=== PATIENT | female | born 1945 | race Caucasian/White ===

== ENCOUNTER → 2017-05-03 | Outpatient (CLI) | payer BC ==
[~2017-05-03] MED LIST: CALC-51 PO; HYDR-3714 PO; MULTTAB58 PO; PRD/1 PO; iron PO; vitamin b12 PO; vitamin d PO
--- NOTE | 2017-05-03 14:20 | MAMMOGRAPHY REPORT ---
BILATERAL DIGITAL SCREENING MAMMOGRAM WITH CAD: 05/03/2017 CLINICAL HISTORY: Routine screening. Patient has no complaints. TECHNIQUE: Current study was also evaluated with a Computer Aided Detection (CAD) system. Bilateral CC and MLO views were obtained. COMPARISON: Comparison is made to exams dated: 05/01/2016 mammogram, 04/28/2015 mammogram, 04/23/2014 [place] m[place], 04/22/2013 mammogram, 04/19/2012 mammogram, and 04/21/2011 mammogram - [facility] BREAST COMPOSITION: The tissue of both breasts is almost entirely fatty. FINDINGS: No suspicious masses, calcifications, or areas of architectural distortion are noted in ei ther breast. There has been no significant interval change compared to prior exams. IMPRESSION: ACR BI-RADS CATEGORY 1: NEGATIVE There is no mammographic evidence of malignancy. A 1 year screening mammogram is recommended. The pa tient will receive written notification of the results. Approximately 10% of breast cancers are not detected with mammography. A negative mammographic report should not delay biopsy if a clinically suggestive mass is present. Shasta Storey M.D. /:05/03/2017 09:13:41 Relay Operator: Molly PHILIPR, M, [facility] letter sent: Normal 1/2 BI-RADS Code: ACR BI-RADS Category 1: Negative
== END | disposition home or self-care (01) ==
LOC: C.MAMM 08:26
PROVIDERS: ATTEND Family Medicine
DX: Z12.31 Encounter for screening mammogram for malignant neoplasm of breast (principal)

== ENCOUNTER → 2017-08-24 | Outpatient (CLI) | payer BC ==
--- NOTE | 2017-08-24 10:28 | DIAGNOSTIC IMAGING REPORT ---
CHEST 2 VIEWS ROUTINE CLINICAL HISTORY: 72 years-old Female presenting with COUGH. TECHNIQUE: PA and lateral views of the chest were obtained. COMPARISON: Chest CT from 09/11/2008. FINDINGS: Cardiac silhouette mildly enlarged. Basilar predominant reticular opacities. No pleural effusion or pneumothorax. Osseous structures normal. Surgical clips noted in the epigastrium. IMPRESSION: 1. Reticular opacities with a basilar predominance raises concern for chronic lung disease/fibrosis. No other focal infiltrate. Electronically signed by: Tyshawn Olivia M.D. 08/24/2017 10:26 AM Dictated Date/Time: 08/24/2017 10:25 AM
== END | disposition home or self-care (01) ==
LOC: C.RAD1850 10:12
PROVIDERS: ATTEND Nurse Practitioner Family
DX: R05 Cough (principal); R91.8 Other nonspecific abnormal finding of lung field

== ENCOUNTER → 2017-10-22 | Outpatient (CLI) | payer BC ==
--- NOTE | 2017-10-22 08:47 | DIAGNOSTIC IMAGING REPORT ---
(CHEST) THORAX WITHOUT CT DOSE: 517.81 mGycm CLINICAL HISTORY: 72 years-old Female with R05 Chronic cough. TECHNIQUE: Multiaxial CT images of the chest were performed without contrast. A dose lowering technique was utilized adhering to the principles of ALARA. COMPARISON: Chest radiograph 08/24/2017, CT chest 09/11/2008 FINDINGS: Thyroid is homogeneous. Mildly enlarged adenopathy is noted about the mediastinum and bilateral terence. 10 mm pretracheal lymph node is seen on image 75 series 4. Left hilar lymph node measures 1.0 cm. Lower right hilar lymph node measures 1.1 cm in short axis. Heart demonstrates mild to moderate multichamber cardiac enlargement. No pericardial effusion. Minimal coronary arterial disease. Mild atherosclerosis of the thoracic aorta without aneurysm. There is no pneumothorax, pleural effusion or focal airspace consolidation. Multifocal multilobar distribution of subpleural predominant reticular and groundglass opacities. Mild traction bronchiectasis of the lung bases with mild subpleural cystic changes of the inferior segment lingula lateral basal segment right lower lobe. 6 mm subpleural area of nodularity at the left lung apex is unchanged compatible with area of scarring. No suspicious pulmonary nodules or masses. The central airways appear patent. Overall pattern of disease has progressed from comparison CT. Cholelithiasis without CT evidence of acute cholecystitis. Moderate sized hiatal hernia with partially intrathoracic stomach. Fluid is noted within the mid and distal esophagus. Postsurgical changes of the stomach are noted. Soft tissues are unremarkable. Bones appear to be intact. Multilevel discogenic degenerative changes and facet arthrosis. Bones appear mildly demineralized. IMPRESSION: 1. Multifocal multilobar distribution of subpleural predominant reticular and groundglass opacities with mild traction bronchiectasis and subpleural cystic changes of the lung bases has progressively worsened from 09/11/2008. Pattern of disease suggests NSIP which could be confirmed with lung biopsy. 2. No pleural effusion or focal airspace consolidation to suggest pneumonia. 3. Mild nonspecific mediastinal and bilateral hilar adenopathy as above. 4. Cardiomegaly. 5. Moderate sized hiatal hernia. 6. Cholelithiasis. Electronically signed by: Say Krishna M.D. 10/22/2017 8:46 AM Dictated Date/Time: 10/22/2017 8:36 AM
[2017-10-22 09:30] LABS: BASO % 0.7 %; BASO ABS # 0.06 K/uL (0-0.2); EOS % 8.4 %; EOS ABS # 0.74 K/uL (0-0.5); HEMOGLOBIN 13.1 g/dL (12.0-16.0); IG# 0.01 K/uL (0.00-0.02); LYMPH % 25.7 %; LYMPH ABS # 2.27 K/uL (1.2-3.4); MEAN CELL VOLUME 92.6 fL (80-100); MEAN CORPUSCULAR HEMOGLOBIN 31.1 pg (25-34); MEAN CORPUSCULAR HGB CONC 33.6 g/dl (32-36); MEAN PLATELET VOLUME 9.7 fL (7.4-10.4); MONO % 6.3 %; MONO ABS # 0.56 K/uL (0.11-0.59); NEUT % 58.8 %; NEUT ABS # 5.19 K/uL (1.4-6.5); PLATELET COUNT 269 K/uL (130-400); RED CELL DISTRIBUTION WIDTH CV 14.5 % (11.5-14.5); RED CELL DISTRIBUTION WIDTH SD 49.3 fL (36.4-46.3); WHITE BLOOD COUNT 8.83 K/uL (4.8-10.8)
[2017-10-22 09:49] LABS: ALBUMIN 3.3 gm/dl (3.4-5.0); ALT/SGPT 29 U/L (12-78); AST/SGOT 24 U/L (15-37); BLOOD UREA NITROGEN 7 mg/dl (7-18); CALCIUM 8.7 mg/dl (8.5-10.1); CARBON DIOXIDE 28 mmol/L (21-32); CREATININE 0.69 mg/dl (0.60-1.20); GLUCOSE 97 mg/dl (70-99); POTASSIUM 3.8 mmol/L (3.5-5.1); SODIUM 139 mmol/L (136-145)
[2017-10-22 09:52] LABS: ALKALINE PHOSPHATASE 99 U/L (45-117); TOTAL PROTEIN 6.8 gm/dl (6.4-8.2)
== END | disposition home or self-care (01) ==
LOC: C.CTS 08:04
PROVIDERS: ATTEND Internal Medicine Critical Care Medicine
DX: R05 Cough (principal); R59.0 Localized enlarged lymph nodes; I51.7 Cardiomegaly; K44.9 Diaphragmatic hernia without obstruction or gangrene; K80.20 Calculus of gallbladder without cholecystitis without obstruction; J47.9 Bronchiectasis, uncomplicated

== ENCOUNTER → 2017-11-01 | Day surgery (SDC) | payer BC ==
--- NOTE | 2017-10-31 20:51 | History and Physical ---
History & Physical Date of Service Oct 31, 2017. History & Physical 72-year-old female here for bronchoscopic evaluation of abnormal CXR and chronic cough: The patient has a PmHx: Significant for hypertension, chronic rhinitis with nasal polyps and history LISA-inhibitor induced cough recently switched to metoprolol. She notes that she continues to have a dry cough which has been present for least the last 4-5 years but has been improved after being switched from her LISA-inhibitor. She also notes along this time a chronic history of rhinitis and has undergone endoscopic sinus surgery with polypectomy on 2013. We reviewed her previous CT scan images from 09/11/2008 that just shows some interstitial changes in the right lower lobe as well as the lingula. Most recent CXR performed on 08/24/2007 did raise concern for diffuse interstitial changes more progressive than in the past. At this time the patient denies: Fever, chills, productive cough, pleurisy, unintentional weight loss, rigors, night sweats or classic cardiac chest pain. CXR 08/24/2017: Reticular opacities with basilar predominance raises concern for possible fibrosis CT thorax 09/11/2008: No evidence of pathologic adenopathy 6 mm noncalcified nodule left lung apex Interstitial thickening within the lingula/both lung bases PmHx: 1. Tubular adenoma 2. Hypertension 3. Skin lesion 4. Postmenopausal 5. Degenerative joint disease 6. Chronic sinusitis 7. History nasal polyps 8. History of gastric bypass 9. History of obesity 10. Appendicitis 11. PsHx: 1. Gastric bypass 2008 2. Endoscopic sinus surgery/polyp removal 10/03/2013 3. Prolapse uterine repair 4. Appendectomy 5. Tonsillectomy Medications 1. Metoprolol XL 25 mg daily 2. Ferrous sulfate 325 mg daily 3. Prevacid 4. Vitamin B12 5. Vitamin D3 6. Calcium citrate 7. 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 Chronic sinusitis (J32.9) 2. DJD (degenerative joint disease) (M19.90) 3. Nasal polyps (J33.9) 4. Skin lesion (L98.9) 5. Weight disorder (R63.8) Past Medical History 1. History of Mild HTN (I10) 2. History of Post-menopausal (Z78.0) 3. History of Tubular adenoma (D36.9) Surgical History 1. History of gastric bypass surgery Social History Never smoker Current Meds 1. Calcium Citrate 1040 MG Oral Tablet; TAKE 1 TABLET DAILY; 2. Ferrous Sulfate 325 (65 Fe) MG Oral Tablet; TAKE 1 TABLET TWICE DAILY; 3. Multi Vitamin Daily Oral Tablet; TAKE 1 TABLET DAILY; 4. Prevacid 15 MG Oral Capsule Delayed Release; TAKE 1 CAPSULE EVERY 12 HOURS; 5. RaNITidine HCl - 150 MG Oral Tablet; TAKE 1 TABLET DAILY; 6. Toprol XL 25 MG Oral Tablet Extended Release 24 Hour; TAKE 1 TABLET ONCE DAILY; 7. Vitamin B12 100 MCG Oral Tablet; TAKE 1 TABLET DAILY DIRECTED; 8. Vitamin D3 1000 UNIT Oral Capsule; TAKE 1 CAPSULE Daily; Allergies 1. LISA Inhibitors 2. Amoxicillin TABS Vital Signs Blood Pressure: 128 / 82, RUE, Sitting O2 Saturation: 93, RA Height: 5 ft 6 in Weight: 229 lb 4 oz BMI Calculated: 37 BSA Calculated: 2.12 Heart Rate: 85 Respiration: 17 Temperature: 98.2 F General appearance: Abnormal. Obese female but no apparent distress. Eyes Conjunctiva and lids: No swelling, erythema or discharge. Pupils and irises: Equal, round and reactive to light. Ears, Nose, Mouth, and Throat External inspection of ears and nose: Normal. Otoscopic examination: Abnormal. Bilateral nasal erythema right greater than left. Oropharynx: Abnormal. Posterior oral pharyngeal erythema with cobblestoning. Pulmonary Respiratory effort: No increased work of breathing or signs of respiratory distress. Auscultation of lungs: Abnormal. Inspiratory Velcro rales bilaterally at the bases. Cardiovascular Palpation of heart: Normal PMI, no thrills. Auscultation of heart: Normal rate and rhythm, normal S1 and S2, without murmurs. Examination of extremities for edema and/or varicosities: Abnormal. Mild edema in the dependent regions lower extremities. Abdomen Abdomen: Non-tender, no masses. Liver and spleen: No hepatomegaly or splenomegaly. Lymphatic Palpation of lymph nodes in neck: No lymphadenopathy. Musculoskeletal Gait and station: Normal. Digits and nails: Normal without clubbing or cyanosis. Inspection/palpation of joints, bones, and muscles: Normal. Skin Skin and subcutaneous tissue: Normal without rashes or lesions. Neurologic Cranial nerves: Cranial nerves 2-12 intact. Reflexes: 2+ and symmetric. Sensation: No sensory loss. Psychiatric Orientation to person, place, and time: Normal. Mood and affect: Normal.
[~2017-11-01] VITALS: Ht 167.6 cm; Wt 100.0 kg
[2017-11-01] VITALS (7 sets, daily range): BP systolic 125–172; BP diastolic 58–87; PULSE 54–69; TEMP 36.4–36.9; O2SAT 94–97; Ht 167.6 cm; Wt 100.0 kg
[~2017-11-01] MED LIST changes: +CHOL1000 PO; +CYAN500T13 PO; +DEXTROSE 5% 1000ML 1,000 ML IV SCH; +FENTANYL CITRATE INJ 50 MCG/1 ML 2 ML VIAL IV ONE; +FERR325T5 PO; +FLUT0.15 INTNAS; +LANS15CA6 PO; +LIDOCAINE 4% INH SOLN 4 ML BTL TOP ONE; +LIDOCAINE HCL 2% LOCAL 50ML VIAL INSTIL ONE; +LIDOCAINE VISCOUS 2% 100ML TOP ONE; +METO25TA4 PO; +MIDAZOLAM HCL 5 MG/ML 1 ML VIAL IV ONE; +NURSING VERBAL MED ORDER ONE; +RANI150T85 PO
--- NOTE | 2017-11-01 08:40 | History & Physical Bridge Note ---
H&P Re-Evaluation Bridge Note: I have examined the patient, reviewed the History & Physical and in the interval since the performance of the History & Physical I have noted the following changes of clinical significance: No changes noted
--- NOTE | 2017-11-01 08:42 | Pre Sedation Assessment ---
Pre Sedation Assessment General Date of Sedation: Nov 01, 2017. Vital Signs Past 12 Hours Date Time Temp Pulse Resp B/P (MAP) Pulse Ox O2 Delivery O2 Flow Rate FiO2 11/01/17 08:09 36.7 66 20 172/76 (108) 95 Room Air Review Cardiovascular: regular rate, rhythm, no edema, no gallop, no JVD, no murmur, normal peripheral pulses Lungs: + pertinent finding Pre-Sedation Airway Assessment Smoking Status: Never Smoker Hx of Sleep Apnea: Yes Hx of difficult intubation: No Short Thick Neck: No Thyro-mental Distance: > 3 Finger Breadths Oral Cavity: WNL Mallampati Classification: Class II ASA Classification: Class II NPO Status Date of Last Intake of Fluids: Nov 01, 2017 Time of Last Intake of Fluids: 0600 Date of Last Intake of Solids: Oct 31, 2017 Time of Last Intake of Solids: 2029 Procedure Planning Contraindications for Sedation: None Current Medications Reviewed: Yes Notes The planned sedation has been discussed with the patient. Informed Consent was obtained. I have identified the patient, determined the appropriateness of sedation and have assessed the patient immediately prior to the procedure. All medicine(s) and interventions are by my order.
--- NOTE | 2017-11-01 11:01 | Discharge Instructions ---
Discharge Instructions Date of Service Nov 01, 2017. Admission Reason for Admission: Chronic Cough Discharge Discharge Diagnosis / Problem: Chronic Cough and ILD changes Discharge Goals Goal(s): Diagnostic testing Activity Recommendations Activity Limitations: resume your previous activity Driving or Machine Use: resume 1 day after discharge . Instructions / Follow-Up Instructions / Follow-Up Pulmonary Clinic Current Hospital Diet Patient's current hospital diet: Discharge Diet Recommended Diet: Regular Diet Procedures Procedures Performed: Bronchosocpy, Consious sedation Bronchial Lavage Pending Studies Studies pending at discharge: no Medical Emergencies . Who to Call and When: Medical Emergencies: If at any time you feel your situation is an emergency, please call 911 immediately. . Non-Emergent Contact Non-Emergency issues call your: [employer] Call Non-Emergent contact if: temperature is above 101 . . "Provider Documentation" section prepared by Prashant Black. .
--- NOTE | 2017-11-01 11:05 | Bronchoscopy Procedure Note ---
Bronchoscopy Procedure Note Procedure: Bronchoscopy, conscious sedation, bronchial Lavage Consent: Obtained through the patient placed into the chart Pre-procedural diagnosis: Chronic Cough with ILD Changes on CT Post-procedural diagnosis: Chronic Cough with ILD Changes on CT and Tracheal ring calcification Start time: 102 End time: 1055 Total time: 28 minutes Analgesia: 2% liquid lidocaine: Via nebulizer 4% gel lidocaine: Via right naris 2% liquid lidocaine: Via bronchoscopy Sedation: Versed IV: 150mg Fentanyl IV: 6g Procedure: The Olympus video bronchoscope was used for this procedure and passed down through the right naris Right naris/posterior naris/posterior oropharynx: Anatomically within normal limits, diffuse erythema and mild nasal bleeding, nasal polyps Glottis: Anatomically within normal limits Vocal cords: Proper abduction and abduction, anatomically within normal limits Subglottis: Anatomically within normal limits Trachea/Ana Cristina: Tracheal Ring Calcifications diffusely Right bronchial tree: Right mainstem bronchus: bronchial ring Calcifications diffusely Right upper lobe: Anatomically within normal limits Bronchus intermedius: Anatomically within normal limits Right middle lobe: Anatomically within normal limits Right lower lobe: Anatomically within normal limits Findings: bronchial ring Calcifications diffusely Left bronchial tree: Left mainstem bronchus: bronchial ring Calcifications diffusely Left upper lobe: Anatomically within normal limits Lingula: Anatomically within normal limits Left lower lobe: Anatomically within normal limits Findings: bronchial ring Calcifications diffusely, left is greater than right Bronchial alveolar lavage: BAL Lingula EBL: none Complications: None Follow-up: [facility]
== END | disposition home or self-care (01) ==
LOC: C.ACU 07:09
PROVIDERS: ATTEND Internal Medicine Critical Care Medicine
DX: R05 Cough (principal); J32.9 Chronic sinusitis, unspecified; I10 Essential (primary) hypertension; Z98.84 Bariatric surgery status; E66.9 Obesity, unspecified; Z90.89 Acquired absence of other organs; Z82.49 Family history of ischemic heart disease and other diseases of the circulatory system; Z80.3 Family history of malignant neoplasm of breast; Z77.22 Contact with and (suspected) exposure to environmental tobacco smoke (acute) (chronic); Z78.0 Asymptomatic menopausal state; Z88.1 Allergy status to other antibiotic agents; Z88.8 Allergy status to other drugs, medicaments and biological substances

== ENCOUNTER → 2018-03-12 | Outpatient (CLI) | payer BC ==
[~2018-03-12] MED LIST changes: -DEXTROSE 5% 1000ML 1,000 ML IV SCH; -FENTANYL CITRATE INJ 50 MCG/1 ML 2 ML VIAL IV ONE; -HYDR-3714 PO; -LIDOCAINE 4% INH SOLN 4 ML BTL TOP ONE; -LIDOCAINE HCL 2% LOCAL 50ML VIAL INSTIL ONE; -LIDOCAINE VISCOUS 2% 100ML TOP ONE; -MIDAZOLAM HCL 5 MG/ML 1 ML VIAL IV ONE; -NURSING VERBAL MED ORDER ONE; -PRD/1 PO; +RXC5 PO; -iron PO; -vitamin b12 PO; -vitamin d PO
[2018-03-18 18:16] LABS: ANA SCREEN TC 249X NEGATIVE (NEGATIVE); ANTI-SS-A <1.0 NEG AI (<1.0 NEG); ANTI-SS-B <1.0 NEG AI (<1.0 NEG); ANTICARDIOLIPID AB IGA <11 APL (< = 11); COMPLEMENT C4** TC 44982E 27 MG/DL (15-57); MICROSOMAL AB <1 IU/ML (<9)
== END | disposition home or self-care (01) ==
LOC: C.LAB1850 13:13
PROVIDERS: ATTEND Internal Medicine Critical Care Medicine
DX: J84.112 Idiopathic pulmonary fibrosis (principal)

== ENCOUNTER → 2018-03-21 | Outpatient (CLI) | payer BC ==
--- NOTE | 2018-03-21 15:01 | DIAGNOSTIC IMAGING REPORT ---
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 COMPARISON: CT chest 10/22/2017 TECHNIQUE: 3 views of the bilateral hands FINDINGS: LEFT: Bones appear mildly demineralized. Subcortical cystic changes are noted throughout the carpal bones. No evidence of erosive arthropathy, acute fracture or dislocation. Moderate first carpometacarpal with mild radiocarpal, triscaphe and multidigit interphalangeal osteoarthritis. RIGHT: Bones appear mildly demineralized. No evidence of erosive arthropathy, acute fracture or dislocation. Moderate first carpometacarpal with mild radiocarpal, triscaphe and multidigit interphalangeal osteoarthritis. Moderate degenerative changes are also noted within the first metacarpal phalangeal joint. IMPRESSION: 1. No evidence of erosive arthropathy. 2. Demineralized appearance of the bones with osteoarthritis as detailed above. The above report was generated using voice recognition software. It may contain grammatical, syntax or spelling errors. Electronically signed by: Say Krishna M.D. 03/21/2018 3:00 PM Dictated Date/Time: 03/21/2018 2:57 PM
[2018-03-21 15:37] LABS: TRANSFERRIN 270 mg/dl (200-360)
== END | disposition home or self-care (01) ==
LOC: C.RAD1850 14:36
PROVIDERS: ATTEND Internal Medicine Rheumatology
DX: J84.112 Idiopathic pulmonary fibrosis (principal); E55.9 Vitamin D deficiency, unspecified; M46.1 Sacroiliitis, not elsewhere classified; M18.0 Bilateral primary osteoarthritis of first carpometacarpal joints

== ENCOUNTER 2022-02-02 11:48 | Inpatient (IN) ==
[2022-02-02] MEDS ORDERED: BENZONATATE 100 MG CAPSULE PO ONE (12:51)
--- NOTE | 2022-02-02 12:55 | Emergency Department Note ---
Impression & Plan Hypoxia, Interstitial lung disease, Cough, Breath shortness ED Provider Note NAME: CHRISTINE CARR AGE: 76 SEX: F : 1945 ARRIVES VIA: Walk-In INFORMANT: Patient ED PROVIDER(S): Max Hoover DO CHIEF COMPLAINT: cough and shortness of breath HPI: Patient is a 76-year-old female with a past medical history of interstitial lung disease that presents to the ER for symptoms of shortness of breath. Symptoms started within the past 2 weeks and have been getting worse. She is bringing up yellow phlegm. She notes the cough is worse with sitting up. Denies any shortness of breath when she is not coughing. Pulse ox going down to 60s with coughing and she feels significantly short of breath. Denies any fevers. No belly pain, nausea, vomiting, or diarrhea. No dysuria, urgency, or frequency. No other exacerbating or remitting factors. She has not talked with pulmonology. ROS: See above HPI for pertinent positives & negatives. A total of 10 systems reviewed and were otherwise negative. PAST MEDICAL HISTORY:See Below PAST SURGICAL HISTORY:See Below FAMILY HISTORY:See Below SOCIAL HISTORY:See Below HOME MEDICATIONS:See Below ALLERGIES:See Below VITALS:See Below PHYSICAL EXAMINATION: GENERAL: Sitting up in bed, alert, well appearing, well nourished, no distress, non-toxic, intermittent cough EYE EXAM: normal conjunctiva. OROPHARYNX: no exudate, no erythema, lips, buccal mucosa, and tongue normal and mucous membranes are moist NECK: supple, no nuchal rigidity, no adenopathy, non-tender LUNGS: Crackles at the bases. Normal chest wall mechanics HEART: no murmurs, S1 normal and S2 normal ABDOMEN: abdomen soft, non-tender, normo-active bowel sounds, no masses, no rebound or guarding. UPPER EXTREMITIES: upper extremities are grossly normal. LOWER EXTREMITIES: No pitting edema. NEURO EXAM: Normal sensorium, cranial nerves II-XII grossly intact, normal speech, no gross weakness of arms, no gross weakness of legs. MEDICAL DECISION MAKING: Patient is a 76-year-old female who presents ER with above-stated complaint. IV was established blood work was obtained. Labs show leukocytosis of 12,000. No significant anemia. D-dimer elevated at 1200. BMP with LFTs bilirubin and lipase are unremarkable. proBNP was elevated at 340. COVID was negative. CT angio of the chest shows diffuse groundglass opacities question infectious versus pulmonary edema. On exam to fever likely infectious. Given Rocephin is a thorough. Updated bedside. She was on 10 L OxiMax and was feeling better. She was given steroids and Tessalon Perles to help with coughing. Discussed with hospitalist for further evaluation. Triage Nursing notes reviewed. Limited review of prior medical records performed Vital Signs: reviewed and remarkable for no significant abnormalities Differential diagnosis: Differential diagnoses includes but is not limited to pneumonia, bronchitis, COPD/Asthma exacerbation, pneumothorax, pulmonary embolism, congestive heart failure, acute coronary syndrome ER treatment provided: See below Diagnostics interpreted by me: ECG: Sinus rhythm rate of 65 Left axis No PVCs T wave inversion in lead III QTC 434 T wave inversion in lead III is new in comparison to previous Cardiac Monitoring: An order was placed for continuous cardiac monitoring. The monitor shows a rate of 70 with sinus rhythm. Laboratory studies: As stated above and show below. Imaging studies: CT angio of the chest as discussed above Consultation(s): Discussed with Dr. Soriano for further eval Procedures: none Critical Care: I have personally spent 31 minutes of critical care time in the direct management of this patient. This includes bedside care, interpretation of diagnostic studies, and testing, discussion with consultants, patient, and family members, and other required patient management activities. This 31 minutes is in excess of all separately billable procedures. Past Med/Surg History Medical History (Updated 02/02/22 @ 18:08 by Twan Soriano) Abnormal chest x-ray Chronic cough Chronic sinusitis DJD (degenerative joint disease) Globus sensation reason for scheduled EGD Hypertension Interstitial lung disease Nasal polyps On home oxygen therapy 2L N/C prn Sacroiliitis, not elsewhere classified Vitamin D deficiency, unspecified Surgical History H/O gastric bypass 2008 H/O sinus surgery Dr. Hamm, left frontal sinusotomy, right and left total ethmoidectomy, right and left sphenoidotomy, right and left maxillary sinus antrostomies. 09/2013 History of appendectomy History of bladder suspension procedure History of colonoscopy History of esophagogastroduodenoscopy (EGD) History of hysterectomy History of lung biopsy 01/2018 History of nasal polypectomy per pt x50 procedures History of tonsillectomy and adenoidectomy History of tooth extraction upper and lower partial History of wisdom tooth extraction Family History Other Heart disease No family history of adverse response to anesthesia Social History Smoking Status: Never smoker Second Hand Exposure: Yes (father smoked); Hx Alcohol Use: Yes Alcohol type: beer and wine Hx Substance Use: No Preferred Language: Honduran Communication Ability: Effective Overcoil Stepper Required: No Beliefs That Will Affect Care: None Current Living Situation: Spouse Feels Safe at Home: Yes Assistive Devices: Denture - Upper, Denture - Lower and Glasses Allergies Allergies Allergy/AdvReac Type Severity Reaction Status Date / Time amoxicillin Allergy Intermediate sneeze/coug Verified 02/02/22 13:04 h LISA Inhibitors AdvReac Intermediate sneeze and Verified 02/02/22 13:04 cough Home Meds Home Medications Medication Instructions Recorded Confirmed multivitamin (Daily Multi-Vitamin) 1 tab PO QAM 03/26/19 02/02/22 montelukast 10 mg tablet 10 mg PO QPM 02/04/20 02/02/22 ferrous sulfate 325 mg (65 mg 325 mg PO QAM #60 tab 06/29/20 02/02/22 iron) tablet cyanocobalamin (vitamin B-12) 2,500 mcg PO WK 07/01/20 02/02/22 2,500 mcg tablet metoprolol succinate 50 mg 50 mg PO BID 07/01/20 02/02/22 tablet,extended release 24 hr celecoxib 100 mg capsule (Celebrex) 100 mg PO BID 10/14/21 02/02/22 benzonatate 100 mg capsule 100 mg PO BID PRN 02/02/22 02/02/22 calcium carbonate 500 mg calcium 500 mg PO DAILY 02/02/22 02/02/22 (1,250 mg) tablet cholecalciferol (vitamin D3) 50 50 mcg PO DAILY 02/02/22 02/02/22 mcg (2,000 unit) capsule (Vitamin D3) fluoxetine 20 mg capsule 20 mg PO DAILY 02/02/22 02/02/22 gabapentin 300 mg capsule 300 mg PO DAILY 02/02/22 02/02/22 nintedanib 150 mg capsule (Ofev) 150 mg PO BID 02/02/22 02/02/22 pantoprazole 40 mg tablet,delayed 40 mg PO BID 02/02/22 02/02/22 release Results & Data (ED) Vital Signs Vital Signs - 24 hr 02/02/22 12:08 02/02/22 12:42 02/02/22 12:46 Temperature 36.9 C Temperature Source Temporal Artery Scan Pulse Rate 82 66 Pulse Rate [Right Finger] 68 Pulse Rhythm Regular Pulse Rhythm [Right Finger] Regular Pulse Strength [Right Finger] Normal Respiratory Rate 24 26 H 24 Respiratory Effort / Characteristics Non-Labored Spontaneous Non-Labored Spontaneous Respiratory Depth Normal Normal Respiratory Pattern Regular Tachypnea Blood Pressure 139/85 Blood Pressure [Right Arm] 188/103 H Blood Pressure Mean 103 Blood Pressure Mean [Right Arm] 131 Blood Pressure Position [Right Arm] Lying Pulse Oximetry 90 97 97 Oxygen Delivery Method Nasal Cannula Nasal Cannula Nasal Cannula Oxygen Flow Rate 4 4 4 Sepsis Recent Fever Within 48 Hours No Sepsis New/Unexplained Change in Mental Status No Sepsis Action Taken by Nursing No Action Required Pulse Oximetry Post Tiitration 02/02/22 14:40 02/02/22 15:00 02/02/22 15:37 Temperature 36.8 C Temperature Source Oral Pulse Rate Pulse Rate [Right Finger] 74 70 Pulse Rhythm Pulse Rhythm [Right Finger] Regular Pulse Strength [Right Finger] Normal Respiratory Rate 22 24 Respiratory Effort / Characteristics Non-Labored Spontaneous Respiratory Depth Normal Respiratory Pattern Blood Pressure Blood Pressure [Right Arm] 164/117 H 164/97 H Blood Pressure Mean Blood Pressure Mean [Right Arm] 132 119 Blood Pressure Position [Right Arm] Lying Pulse Oximetry 93 95 Oxygen Delivery Method Nasal Cannula Oxyhood Oxymask Oxygen Flow Rate 4 12 10 Sepsis Recent Fever Within 48 Hours Sepsis New/Unexplained Change in Mental Status Sepsis Action Taken by Nursing Pulse Oximetry Post Tiitration 96 Laboratory Data Result diagrams: 02/02/22 12:45 02/02/22 12:45 Lab Results 02/02/22 02/02/22 02/02/22 Range/Units 12:40 12:45 12:45 WBC 12.71 H (4.8-10.8) K/uL RBC 4.08 L (4.2-5.4) M/uL Hgb 12.7 (12.0-16.0) g/dL Hct 38.4 (37-47) % MCV 94.1 (80-100) fL MCH 31.1 (25-34) pg MCHC 33.1 (32-36) g/dL RDW Std Deviation 48.3 H (36.4-46.3) fL RDW Coeff of Jane 14.0 (11.5-14.5) % Plt Count 313 (130-400) K/uL MPV 9.6 (7.4-10.4) fL Immature Gran % (Auto) 0.2 % Neut % (Auto) 75.1 % Lymph % (Auto) 14.9 % Lander % (Auto) 9.3 % Eos % (Auto) 0.2 % Baso % (Auto) 0.3 % Neut # (Auto) 9.54 H (1.4-6.5) K/uL Lymph # (Auto) 1.89 (1.2-3.4) K/uL Lander # (Auto) 1.18 H (0.11-0.59) K/uL Eos # (Auto) 0.03 (0-0.5) K/uL Baso # (Auto) 0.04 (0-0.2) K/uL Immature Gran # (Auto) 0.03 H (0.00-0.02) K/uL D-Dimer 1270 H* (0-500) ug/L FEU Sodium (136-145) mmol/L Potassium (3.5-5.1) mmol/L Chloride (98-107) mmol/L Carbon Dioxide (21-32) mmol/L Anion Gap (3-11) BUN (6-23) mg/dl Creatinine (0.6-1.2) mg/dl Est Cr Clr Drug Dosing ml/min Est GFR ( Amer) ml/min Est GFR (Non-Af Amer) ml/min BUN/Creatinine Ratio (10-20) Glucose (70-99(Fasting)) mg/dl Calcium (8.5-10.1) mg/dl Total Bilirubin (0.2-1.0) mg/dl AST (13-39) U/L ALT (7-52) U/L Alkaline Phosphatase (34-104) U/L Troponin I High Sens (0-14) pg/ml B-Natriuretic Peptide (0-100) pg/ml Total Protein (6.0-8.3) gm/dl Albumin (3.4-5.0) gm/dl Globulin (2.5-4.0) gm/dl Albumin/Globulin Ratio (0.9-2) Lipase (11-82) U/L SARS-CoV-2, RNA, NAAT NEGATIVE (NEGATIVE) 02/02/22 02/02/22 Range/Units 12:45 16:00 WBC (4.8-10.8) K/uL RBC (4.2-5.4) M/uL Hgb (12.0-16.0) g/dL Hct (37-47) % MCV (80-100) fL MCH (25-34) pg MCHC (32-36) g/dL RDW Std Deviation (36.4-46.3) fL RDW Coeff of Jane (11.5-14.5) % Plt Count (130-400) K/uL MPV (7.4-10.4) fL Immature Gran % (Auto) % Neut % (Auto) % Lymph % (Auto) % Lander % (Auto) % Eos % (Auto) % Baso % (Auto) % Neut # (Auto) (1.4-6.5) K/uL Lymph # (Auto) (1.2-3.4) K/uL Lander # (Auto) (0.11-0.59) K/uL Eos # (Auto) (0-0.5) K/uL Baso # (Auto) (0-0.2) K/uL Immature Gran # (Auto) (0.00-0.02) K/uL D-Dimer (0-500) ug/L FEU Sodium 135 L (136-145) mmol/L Potassium 3.8 (3.5-5.1) mmol/L Chloride 99 (98-107) mmol/L Carbon Dioxide 29 (21-32) mmol/L Anion Gap 7 (3-11) BUN 11 (6-23) mg/dl Creatinine 0.68 (0.6-1.2) mg/dl Est Cr Clr Drug Dosing 83.1 ml/min Est GFR ( Amer) 99.9 ml/min Est GFR (Non-Af Amer) 86.2 ml/min BUN/Creatinine Ratio 16.2 (10-20) Glucose 130 H (70-99(Fasting)) mg/dl Calcium 8.7 (8.5-10.1) mg/dl Total Bilirubin 0.6 (0.2-1.0) mg/dl AST 23 (13-39) U/L ALT 10 (7-52) U/L Alkaline Phosphatase 93 (34-104) U/L Troponin I High Sens 7.2 (0-14) pg/ml B-Natriuretic Peptide 337 H (0-100) pg/ml Total Protein 7.0 (6.0-8.3) gm/dl Albumin 3.2 L (3.4-5.0) gm/dl Globulin 3.8 (2.5-4.0) gm/dl Albumin/Globulin Ratio 0.8 L (0.9-2) Lipase 7 L (11-82) U/L SARS-CoV-2, RNA, NAAT (NEGATIVE) Administered Medications Discontinued Medications Benzonatate (Benzonatate 100 Mg Capsule) 100 mg PO NOW ONE Stop: 02/02/22 12:52 Last Admin: 02/02/22 13:46 Dose: 100 mg Documented by: [id number] Ceftriaxone Sodium (Rocephin) 1,000 mg in 50 mls @ 100 mls/hr IV NOW STA Stop: 02/02/22 16:10 Last Infusion: 02/02/22 17:54 Dose: 0 mls/hr Documented by: [id number] Admin: 02/02/22 17:21 Dose: 100 mls/hr Documented by: [id number] Azithromycin 500 mg/ Dextrose 255 mls @ 127.5 mls/hr IV NOW STA Stop: 02/02/22 17:40 Last Admin: 02/02/22 17:59 Dose: 127.5 mls/hr Documented by: [id number] Ioversol (Optiray 320 125ml) 120 ml IV ONCE ONE Stop: 02/02/22 14:34 Last Admin: 02/02/22 14:34 Dose: 120 ml Documented by: [id number] Methylprednisolone (Methylprednisolone 40 Mg/Ml Vial) 40 mg IV NOW STA Stop: 02/02/22 12:56 Last Admin: 02/02/22 13:47 Dose: 40 mg Documented by: [id number] Imaging Data Radiologist's Impression: Chest X-Ray 02/02/22 12:27 XR chest 1V portable CLINICAL HISTORY: Atypical chest pain. COMPARISON STUDY: Chest radiograph January 20, 2020. Chest CT August 05, 2020. FINDINGS: Lower lung predominant interstitial thickening represents pulmonary fibrosis. This has progressed since prior chest radiograph and chest CT. A 2.6 cm nodular right upper lung airspace opacity has developed. Additional patchy airspace opacities are suspected. Cardiomegaly is unchanged. There is no pneumothorax or pleural effusion. Surgical clips at the gastroesophageal junction are incidentally noted. IMPRESSION: 1. Interval development of patchy bilateral airspace opacities, including a 2.6 cm right upper lung nodular opacity. The findings favor pneumonia. However, follow-up PA and lateral chest radiographs are recommended in one month to exclude a right upper lobe lesion. 2. Progression of interstitial thickening consistent with pulmonary fibrosis. 3. Cardiomegaly. ACT 112: Negative or not required by law. Electronically signed by: Ulises Can M.D. 02/02/2022 1:20 PM Chest CTA 02/02/22 14:08 CT ANGIOGRAM OF THE CHEST CLINICAL HISTORY: Cough and dyspnea. COMPARISON STUDY: Chest x-ray dated 02/02/[address] dated 08/05/2020. TECHNIQUE: Following the IV administration of 120 cc of Optiray 320, CT angiogram of the chest was performed from the upper abdomen to the thoracic inlet utilizing the pulmonary embolus protocol. Images are reviewed in the axial, sagittal, and coronal planes. 3-D MIPS images are created and assessed. IV contrast was administered without complication. A dose lowering technique was utilized adhering to the principles of ALARA. CT DOSE: 479.17 mGy.cm FINDINGS: Thyroid: Imaged portions of the thyroid gland are normal in size and attenuatio n. Thoracic aorta: There is mild atherosclerotic calcification of the thoracic aorta, which is normal in caliber and demonstrates standard 3-vessel arch anatomy. No dissection is seen. Pulmonary vasculature: The pulmonary trunk is normal in caliber. There are no filling defects identified in main, lobar, or segmental pulmonary branches to suggest pulmonary embolus. Heart: The heart is enlarged and without pericardial effusion. Lungs and pleural spaces: Findings of chronic interstitial lung disease are similar to previous, with subpleural reticulation, foci of honeycombing at the lung bases, and traction bronchiectasis. Diffuse groundglass opacities are seen throughout both lungs. No pleural effusion is seen. The trachea and central airways appear clear. A 1.3 cm left apical nodular density seen on image #242 is unchanged. Lower neck: There are mildly enlarged supraclavicular nodes which measure up to 1.1 cm in length. Mediastinum: Esophagus is patulous and distended with fluid to the level of the aortic arch. There is bulky mediastinal lymphadenopathy. A pretracheal node measures 3.2 x 2.4 cm. A prevascular node measure 2.5 x 1.7 cm, and a subcarinal node measures 3.2 x 2.2 cm. Kyra: There is bilateral hilar lymphadenopathy. Hilar nodes measure up to 1.8 cm in short axis. Axillae: There is no axillary lymphadenopathy. Upper abdomen: Diverticulosis is noted in the partially imaged colon. A 1.9 cm peripherally calcified structure within or adjacent to gallbladder fossa is unchanged from previous. This could represent a hepatic calcification, a calcified gallstone, or possibly calcification of the gallbladder wall. Postoperative changes consistent with previous gastric bypass surgery. There is a moderate hiatal hernia. Skeletal structures: The skeletal structures are osteopenic. Degenerative change and mild hyperkyphosis is noted in the thoracic spine. No lytic or blastic bony lesions are seen. There is a subacute/healing right anterior 5th rib fracture. IMPRESSION: 1. There is no evidence of pulmonary embolus in the main, lobar, or segmental pulmonary arteries. 2. Cardiomegaly. 3. Findings of chronic interstitial lung disease are similar to previous. 4. Diffuse groundglass consolidation is seen throughout both lungs. This is nonspecific and could represent pulmonary edema versus an infectious/inflammatory pneumonitis. Clinical correlation will be required and radiographic follow-up to resolution is recommend. 5. The esophagus is patulous and filled with fluid to the level of the aortic arch. Note that this may place the patient at risk for aspiration. 6. There is bulky mediastinal and hilar lymphadenopathy. This has increased as compared to 08/05/2020, and may be related to chronic lung disease with superimposed reactive change. Attention at follow-up is recommended. 7. Additional findings as above. ACT 112: Negative or not required by law. Electronically signed by: Arslan Angelo M.D. 02/02/2022 3:05 PM Discharge Plan Visit Data Chief Complaint: Shortness of Breath/Dyspnea Stated Complaint: SHORTNESS OF BREATH ED Provider: Hoover,Max M Discharge Problem: Hypoxia, Interstitial lung disease, Cough, Breath shortness Forms Stand Alone Forms: My [facility] Prescriptions Prescriptions: No Action montelukast 10 mg tablet 10 mg PO QPM RF: 0 celecoxib [Celebrex] 100 mg capsule 100 mg PO BID RF: 0 multivitamin [Daily Multi-Vitamin] tablet 1 tab PO QAM RF: 0 ferrous sulfate 325 mg (65 mg iron) tablet 325 mg PO QAM Qty: 60 RF: 0 metoprolol succinate 50 mg Tablet Extended Release 24 Hr 50 mg PO BID RF: 0 cyanocobalamin (vitamin B-12) 2,500 mcg Tablet 2,500 mcg PO WK RF: 0 benzonatate [Tessalon Perles] 100 mg Capsule 100 mg PO BID PRN (Reason: Cough) RF: 0 calcium carbonate [Calcium 500] 500 mg calcium (1,250 mg) Tablet 500 mg PO DAILY RF: 0 pantoprazole 40 mg tablet,delayed release (DR/EC) 40 mg PO BID RF: 0 gabapentin 300 mg capsule 300 mg PO DAILY RF: 0 fluoxetine 20 mg capsule 20 mg PO DAILY RF: 0 cholecalciferol (vitamin D3) [Vitamin D3] 50 mcg (2,000 unit) Capsule 50 mcg PO DAILY RF: 0 Ofev 150 mg capsule 150 mg PO BID RF: 0 Referrals Referrals: Kasia King DO [Primary Care Provider] -
[2022-02-02 13:14] LABS: Basophils # (auto) 0.04 K/uL (0-0.2); Basophils % (auto) 0.3 %; Eosinophils # (auto) 0.03 K/uL (0-0.5); Eosinophils % (auto) 0.2 %; Hematocrit (blood only) 38.4 % (37-47); Hemoglobin 12.7 g/dL (12.0-16.0); Immature Granulocytes # (auto) 0.03 K/uL (0.00-0.02); Immature Granulocytes % (auto) 0.2 %; Lymphocytes # (auto) 1.89 K/uL (1.2-3.4); Lymphocytes % (auto) 14.9 %; Mean Corpuscular Hemoglobin 31.1 pg (25-34); Mean Corpuscular Hgb Conc 33.1 g/dL (32-36); Mean Corpuscular Volume 94.1 fL (80-100); Mean Platelet Volume 9.6 fL (7.4-10.4); Monocytes # (auto) 1.18 K/uL (0.11-0.59); Monocytes % (auto) 9.3 %; Neutrophils # (auto) 9.54 K/uL (1.4-6.5); Neutrophils % (auto) 75.1 %; Platelet Count 313 K/uL (130-400); RDW Standard Deviation 48.3 fL (36.4-46.3); Red Blood Count 4.08 M/uL (4.2-5.4); White Blood Count 12.71 K/uL (4.8-10.8)
--- NOTE | 2022-02-02 13:22 | XRay Report ---
XR chest 1V portable CLINICAL HISTORY: Atypical chest pain. COMPARISON STUDY: Chest radiograph January 20, 2020. Chest CT August 05, 2020. FINDINGS: Lower lung predominant interstitial thickening represents pulmonary fibrosis. This has prog ressed since prior chest radiograph and chest CT. A 2.6 cm nodular right upper lung airspace opacity has developed. Additional patchy airspace opacities are suspected. Cardiomegaly is unchanged. There i s no pneumothorax or pleural effusion. Surgical clips at the gastroesophageal junction are incidental ly noted. IMPRESSION: 1. Interval development of patchy bilateral airspace opacities, including a 2.6 cm right upper lung nodular opacity. The findings favor pneumonia. However, follow-up PA and lateral chest radiographs ar e recommended in one month to exclude a right upper lobe lesion. 2. Progression of interstitial thickening consistent with pulmonary fibrosis. 3. Cardiomegaly. ACT 112: Negative or not required by law. Electronically signed by: Ulises Can M.D. 02/02/2022 1:20 PM
[2022-02-02 13:24] LABS: D Dimer 1270 ug/L FEU (0-500)
[2022-02-02 13:35] LABS: Albumin Globulin Ratio 0.8 (0.9-2); Albumin Level 3.2 gm/dl (3.4-5.0); BUN Creatinine Ratio 16.2 (10-20); Bilirubin,Total 0.6 mg/dl (0.2-1.0); Calcium 8.7 mg/dl (8.5-10.1); Creatinine Clr Calc Pharmacy 83.1 ml/min; Est GFR (African American) 99.9 ml/min; Est GFR (Non-African American) 86.2 ml/min; Globulin 3.8 gm/dl (2.5-4.0); Potassium 3.8 mmol/L (3.5-5.1)
[2022-02-02 13:39] LABS: Troponin I High Sensitivity 7.2 pg/ml (0-14)
[2022-02-02] MEDS ORDERED: OPTIRAY 320 125ml IV ONE (14:33)
--- NOTE | 2022-02-02 15:07 | CT Scan Report ---
CT ANGIOGRAM OF THE CHEST CLINICAL HISTORY: Cough and dyspnea. COMPARISON STUDY: Chest x-ray dated 02/02/[address] dated 08/05/2020. TECHNIQUE: Following the IV administration of 120 cc of Optiray 320, CT angiogram of the chest was pe rformed from the upper abdomen to the thoracic inlet utilizing the pulmonary embolus protocol. Images are reviewed in the axial, sagittal, and coronal planes. 3-D MIPS images are created and assessed. I V contrast was administered without complication. A dose lowering technique was utilized adhering to the principles of ALARA. CT DOSE: 479.17 mGy.cm FINDINGS: Thyroid: Imaged portions of the thyroid gland are normal in size and attenuation. Thoracic aorta: There is mild atherosclerotic calcification of the thoracic aorta, which is normal in caliber and demonstrates standard 3-vessel arch anatomy. No dissection is seen. Pulmonary vasculature: The pulmonary trunk is normal in caliber. There are no filling defects identif ied in main, lobar, or segmental pulmonary branches to suggest pulmonary embolus. Heart: The heart is enlarged and without pericardial effusion. Lungs and pleural spaces: Findings of chronic interstitial lung disease are similar to previous, with subpleural reticulation, foci of honeycombing at the lung bases, and traction bronchiectasis. Diffus e groundglass opacities are seen throughout both lungs. No pleural effusion is seen. The trachea and central airways appear clear. A 1.3 cm left apical nodular density seen on image #242 is unchanged. Lower neck: There are mildly enlarged supraclavicular nodes which measure up to 1.1 cm in length. Mediastinum: Esophagus is patulous and distended with fluid to the level of the aortic arch. There is bulky mediastinal lymphadenopathy. A pretracheal node measures 3.2 x 2.4 cm. A prevascular node johnna ure 2.5 x 1.7 cm, and a subcarinal node measures 3.2 x 2.2 cm. Kyra: There is bilateral hilar lymphadenopathy. Hilar nodes measure up to 1.8 cm in short axis. Axillae: There is no axillary lymphadenopathy. Upper abdomen: Diverticulosis is noted in the partially imaged colon. A 1.9 cm peripherally calcified structure within or adjacent to gallbladder fossa is unchanged from previous. This could represent a hepatic calcification, a calcified gallstone, or possibly calcification of the gallbladder wall. Pos toperative changes consistent with previous gastric bypass surgery. There is a moderate hiatal hernia . Skeletal structures: The skeletal structures are osteopenic. Degenerative change and mild hyperkyphos is is noted in the thoracic spine. No lytic or blastic bony lesions are seen. There is a subacute/hea ling right anterior 5th rib fracture. IMPRESSION: 1. There is no evidence of pulmonary embolus in the main, lobar, or segmental pulmonary arteries. 2. Cardiomegaly. 3. Findings of chronic interstitial lung disease are similar to previous. 4. Diffuse groundglass consolidation is seen throughout both lungs. This is nonspecific and could rep resent pulmonary edema versus an infectious/inflammatory pneumonitis. Clinical correlation will be re quired and radiographic follow-up to resolution is recommend. 5. The esophagus is patulous and filled with fluid to the level of the aortic arch. Note that this ma y place the patient at risk for aspiration. 6. There is bulky mediastinal and hilar lymphadenopathy. This has increased as compared to 08/05/2020 , and may be related to chronic lung disease with superimposed reactive change. Attention at follow-u p is recommended. 7. Additional findings as above. ACT 112: Negative or not required by law. Electronically signed by: Arslan Angelo M.D. 02/02/2022 3:05 PM
[2022-02-02] MEDS ORDERED: AZITHROMYCIN 500 MG in DEXTROSE 5% 250 ML IV STA (15:41)
[2022-02-02] MEDS ORDERED: cefTRIAXone SODIUM 1,000 MG/50 ML BAG IV STA (15:41)
[2022-02-02] MEDS ORDERED: BENZONATATE 100 MG CAPSULE PO PRN (16:40)
--- NOTE | 2022-02-02 18:00 | History & Physical Report ---
Date of Service February 02, 2022 Assessment & Plan (1) IPF (idiopathic pulmonary fibrosis): Plan: 76 yo female with acute respiratory failure. CT scan showed Diffuse groundglass consolidation is seen throughout both lungs. will place on cefepime. will place on xopenex resume home meds. (2) Abnormal CT scan of lung: Plan: Diffuse groundglass consolidation is seen throughout both lungs. This is nonspecific and could represent pulmonary edema versus an infectious/inflammatory pneumonitis. (3) Cough: Plan: will check COVID/ BIOFIRE. (4) Hypertension: Plan: resume metoprolol History of Present Illness Chief Complaint: SOB Primary Care Provider: Kasia King DO This is a 76-year-old female with interstitial lung disease. Follows up with Dr. Barr and [facility] pulmonary. Patient reports over the past 2 weeks she has been having cough with some sputum. She reports that since she developed this cough she has been running requiring oxygen at home about 4 L at rest. She states she feels fatigue when she ambulates. She noticed today now despite being on 4 L her O2 sats were low in the 70s which prompted her to come into the hospital. She states that over the past 2 days she has felt significantly worse. Patient denies any sick contacts. Patient denies any fever, chills, nausea, vomiting. Allergies Allergy/AdvReac Type Severity Reaction Status Date / Time amoxicillin Allergy Intermediate sneeze/coug Verified 02/02/22 13:04 h LISA Inhibitors AdvReac Intermediate sneeze and Verified 02/02/22 13:04 cough Home Medications Medication Instructions Recorded Confirmed Type multivitamin (Daily Multi-Vitamin) 1 tab PO QAM 03/26/19 02/02/22 History montelukast 10 mg tablet 10 mg PO QPM 02/04/20 02/02/22 History ferrous sulfate 325 mg (65 mg 325 mg PO QAM #60 tab 06/29/20 02/02/22 History iron) tablet cyanocobalamin (vitamin B-12) 2,500 mcg PO WK 07/01/20 02/02/22 History 2,500 mcg tablet metoprolol succinate 50 mg 50 mg PO BID 07/01/20 02/02/22 History tablet,extended release 24 hr celecoxib 100 mg capsule (Celebrex) 100 mg PO BID 10/14/21 02/02/22 History benzonatate 100 mg capsule 100 mg PO BID PRN 02/02/22 02/02/22 History calcium carbonate 500 mg calcium 500 mg PO DAILY 02/02/22 02/02/22 History (1,250 mg) tablet cholecalciferol (vitamin D3) 50 50 mcg PO DAILY 02/02/22 02/02/22 History mcg (2,000 unit) capsule (Vitamin D3) fluoxetine 20 mg capsule 20 mg PO DAILY 02/02/22 02/02/22 History gabapentin 300 mg capsule 300 mg PO DAILY 02/02/22 02/02/22 History nintedanib 150 mg capsule (Ofev) 150 mg PO BID 02/02/22 02/02/22 History pantoprazole 40 mg tablet,delayed 40 mg PO BID 02/02/22 02/02/22 History release Past Med/Surg History Medical History Abnormal chest x-ray Chronic cough Chronic sinusitis DJD (degenerative joint disease) Globus sensation reason for scheduled EGD Hypertension Interstitial lung disease Nasal polyps On home oxygen therapy 2L N/C prn Sacroiliitis, not elsewhere classified Vitamin D deficiency, unspecified Surgical History H/O gastric bypass 2008 H/O sinus surgery Dr. Hamm, left frontal sinusotomy, right and left total ethmoidectomy, right and left sphenoidotomy, right and left maxillary sinus antrostomies. 09/2013 History of appendectomy History of bladder suspension procedure History of colonoscopy History of esophagogastroduodenoscopy (EGD) History of hysterectomy History of lung biopsy 01/2018 History of nasal polypectomy per pt x50 procedures History of tonsillectomy and adenoidectomy History of tooth extraction upper and lower partial History of wisdom tooth extraction Family History Other Heart disease No family history of adverse response to anesthesia Social History Smoking Status: Never smoker Second Hand Exposure: No; Do You Dip or Chew Tobacco: No; Tobacco Cessation Education Requested by Patient: No Hx Alcohol Use: Yes Alcohol type: wine Hx Substance Use: No Preferred Language: Maldivian Communication Ability: Effective Volleyball Referee Required: No Beliefs That Will Affect Care: None Current Living Situation: Spouse Other Information That Helps Us Care for You: No Feels Safe at Home: Yes Safety Concerns: Feels Safe At This Time Assistive Devices: Oxygen - Continuous Review of Systems Constitutional: no fever Eyes: no blind spots Ear, Nose, Mouth, Throat: no ear pain Respiratory: + cough and + dyspnea Cardiovascular: no chest pain Gastrointestinal: no abdominal pain Genitourinary: no dysuria Musculoskeletal: no back pain Integumentary: no acne Neurologic: no gait abnormality Psychiatric: no behavioral changes Endocrine: no fatigue Hematologic / Lymphatic: no easy bleeding Allergy / Immunological: no GI upset with certain foods Physical Exam Constitutional: WD/WN, vitals as above Eyes: PERRL, conjunctivae normal, anicteric sclerae ENMT: external ear and nose normal, oropharynx normal Neck: trachea midline, no thyromegaly Respiratory: normal respiratory effort, lungs clear to auscultation Cardiovascular: RRR, no murmur, no edema Gastrointestinal (Abdomen): normal bowel sounds, soft, nontender, no hepatosplenomegaly Musculoskeletal: no cyanosis or clubbing, extremities motor strength 5/5 Skin: no rashes, warm and dry Neurologic: PERRL, EOMI, accommodation nl, no face palsy, no dysarthria Psychiatric: A+Ox3, euthymic affect Lymphatic: no cervical or axillary lymphadenopathy Results & Data Results & Data ([facility]) Vital Signs (Past 12 Hours) Vital Signs Temp Pulse Pulse Resp BP BP Pulse Ox 02/02/22 15:37 36.8 C 70 24 164/97 H 95 02/02/22 14:40 74 22 164/117 H 93 02/02/22 12:46 66 24 97 02/02/22 12:42 68 26 H 188/103 H 97 02/02/22 12:08 36.9 C 82 24 139/85 90 Code Status & VTE Plan VTE Prophylaxis Plan VTE Prophylaxis will be ordered: Yes PG Care Time/CCT Total # of Minutes Spent Total Time Spent with Patient: Total time spent is greater than 50% in coordination of care (as documented) at patient's floor/unit and/or counseling patient: Coding Level of Care Code 82221 Initial Inpt Care Lvl [address] scan of lung R91.8 IPF (idiopathic pulmonary fibrosis) J84.112 Cough R05 Hypertension I10 Time Spent (min) 35
--- NOTE | 2022-02-02 18:25 | Electrocardiogram Report ---
Test Reason : Blood Pressure : / mmHG Vent. Rate : 065 BPM Atrial Rate : 065 BPM P-R Int : 188 ms QRS Dur : 084 ms QT Int : 418 ms P-R-T Axes : 007 -29 001 degrees QTc Int : 434 ms Normal sinus rhythm Moderate voltage criteria for LVH, may be normal variant Borderline ECG When compared with ECG of 31-DEC-2017 08:42, No significant change was found Confirmed by Justin Childers ([id number]) on 02/02/2022 6:25:50 PM Referred By: Confirmed By:Hamilton Childers
[2022-02-02] MEDS ORDERED: LEVALBUTEROL 1.25MG/0.5ML NEB NEB ONE (19:30)
[2022-02-02] MEDS ORDERED: CEFEPIME 2,000 MG in SYRINGE 0 ML IV ONE (19:30)
[2022-02-02] MEDS ORDERED: CEFEPIME 20 ML IV ONE (19:30)
[2022-02-02 20:03] LABS: Adenovirus PCR Not Detected (NotDetected); Bordetella parapertussis PCR Not Detected (NotDetected); Bordetella pertussis PCR Not Detected (NotDetected); Chlamydia pneumoniae PCR Not Detected (NotDetected); Coronavirus 229E PCR Not Detected (NotDetected); Coronavirus CoV-2 (COVID19)PCR Not Detected (NotDetected); Coronavirus HKU1 PCR Not Detected (NotDetected); Coronavirus NL63 PCR Not Detected (NotDetected); Coronavirus OC43PCR Not Detected (NotDetected); Human Metapneumovirus PCR Not Detected (NotDetected); Influenza A PCR Not Detected (NotDetected); Influenza B PCR Not Detected (NotDetected); Mycoplasma pneumoniae PCR Not Detected (NotDetected); Parainfluenza Virus 1 PCR Not Detected (NotDetected); Parainfluenza Virus 2 PCR Not Detected (NotDetected); Parainfluenza Virus 3 PCR Not Detected (NotDetected); Parainfluenza Virus 4 PCR Not Detected (NotDetected); Respiratory Syncytial VirusPCR Not Detected (NotDetected); Rhinovirus/Enterovirus PCR Not Detected (NotDetected)
[2022-02-02] MEDS: NINTEDANIB PO SCH (21:15)
[2022-02-02] MEDS: CEFEPIME 2,000 MG in SYRINGE 0 ML IV SCH (21:40)
[2022-02-02] MEDS: CELECOXIB 100 MG CAP PO SCH (21:41)
[2022-02-02] MEDS: ENOXAPARIN INJ 40 MG/0.4 ML SYR SQ SCH (21:41)
[2022-02-02] MEDS: MONTELUKAST SODIUM 10 MG TABLET PO SCH (21:42)
[2022-02-02] MEDS: METOPROLOL SUCC 50MG EXT REL TAB PO SCH (21:42)
[2022-02-02] MEDS: PANTOprazole 40 MG TAB PO SCH (21:43)
[2022-02-03] MEDS ORDERED: LEVALBUTEROL 1.25MG/0.5ML NEB NEB SCH (01:00)
[2022-02-03] MEDS ORDERED: LEVALBUTEROL HCL 1.25 MG/3 ML NEB NEB PRN (01:25)
[2022-02-03] MEDS: CEFEPIME 2,000 MG in SYRINGE 0 ML IV SCH ×3 (04:54→21:25)
[2022-02-03] MEDS: CHOLECALCIFEROL 1,000 UNITS 25 MCG TAB PO SCH (08:32)
[2022-02-03] MEDS: FERROUS SULFATE 325 MG TAB PO SCH (08:32)
[2022-02-03] MEDS: CALCIUM CARBONATE 1250MG TAB PO SCH (08:32)
[2022-02-03] MEDS: FLUoxetine HCL 20 MG CAP PO SCH (08:32)
[2022-02-03] MEDS: MULTIVITAMIN TAB PO SCH (08:33)
[2022-02-03] MEDS: GABAPENTIN 300 MG CAP PO SCH (08:33)
[2022-02-03] MEDS: CELECOXIB 100 MG CAP PO SCH ×2 (08:33→21:25)
[2022-02-03] MEDS: PANTOprazole 40 MG TAB PO SCH ×2 (08:33→21:26)
[2022-02-03] MEDS: METOPROLOL SUCC 50MG EXT REL TAB PO SCH ×2 (08:33→21:26)
[2022-02-03] MEDS: NINTEDANIB PO SCH (08:34)
[2022-02-03] MEDS ORDERED: FUROSEMIDE INJ 20 MG/2 ML VIAL IV ONE (15:26)
--- NOTE | 2022-02-03 15:28 | Pulmonary Consultation ---
Date of Consultation February 03, 2022 Assessment & Plan (1) IPF (idiopathic pulmonary fibrosis): (2) Abnormal CT scan of lung: (3) Interstitial lung disease: (4) Acute on chronic respiratory failure with hypoxemia: CTA chest 02/02/2022 personally reviewed: Diffuse patchy groundglass opacities appreciated bilaterally Traction bronchiectasis bilateral lower lobes with honeycombing Positive mediastinal and hilar lymphadenopathy Groundglass opacities are new compared to CAT scan done 08/05/2020. Patient did have mediastinal and hilar lymphadenopathy even before -- Acute on chronic hypoxic respiratory failure In a patient who has underlying ILD BNP 337 Respiratory bio fire negative, influenza a/B negative COVID 19 NAAT negative Diffuse groundglass opacities could be from fluid overload Patient denies any hemoptysis but diffuse alveolar hemorrhage Is in the same way. Acute exacerbation of ILD can give groundglass opacities as well Continue with O2 supplementation to keep oxygen saturation between 88-92% --ILD/IPF On Ofev --DNR/DNI Plan: Given the elevated BNP, I would like the patient to be diuresed and keep negative balance. Recommend 2D echo Follow-up nasal MRSA if it is negative can discontinue vancomycin Will start the patient on Solu-Medrol 40 mg twice daily for possible ILD exacerbation continue with Protonix twice daily Case discussed with Dr Soriano Please note the above document was generated using voice recognition software. It may contain grammatical, syntax or spelling errors.Any formal questions or concerns about the content, text or information contained within the body of this dictation should be directly addressed to the provider for clarification. History of Present Illness Attending Physician: Twan Soriano History of Present Illness 76-year-old female was admitted to hospital because of worsening shortness of breath Past medical history: IPF on Ofev, chronic hypoxic respiratory failure on 3-4 4 L nasal cannula at home, GERD Pulmonary consulted with the patient was requiring high amounts of oxygen Patient has been vaccinated against COVID-19 and boosted x2 Patient has been following up with Dr. Barr as an outpatient. Clinic notes personally reviewed At the time of examination patient was not in any respiratory distress but she was reporting 40 L high flow, 90% FiO2 She was saturating 92%. I was able to go down to 80% FiO2 Did complain of cough which has been going on for a while. Yellow in color. Denies any hemoptysis Denied any fever or chills Occasional headache. No dysuria, no diarrhea. No nausea or vomiting. Patient says she is compliant with her inhalers as well as Ofev Social history: Lifetime non-smoker Allergies Allergy/AdvReac Type Severity Reaction Status Date / Time amoxicillin Allergy Intermediate sneeze/coug Verified 02/02/22 13:04 h LISA Inhibitors AdvReac Intermediate sneeze and Verified 02/02/22 13:04 cough Home Medications Medication Instructions Recorded Confirmed Type multivitamin (Daily Multi-Vitamin) 1 tab PO QAM 03/26/19 02/02/22 History montelukast 10 mg tablet 10 mg PO QPM 02/04/20 02/02/22 History ferrous sulfate 325 mg (65 mg 325 mg PO QAM #60 tab 06/29/20 02/02/22 History iron) tablet cyanocobalamin (vitamin B-12) 2,500 mcg PO WK 07/01/20 02/02/22 History 2,500 mcg tablet metoprolol succinate 50 mg 50 mg PO BID 07/01/20 02/02/22 History tablet,extended release 24 hr celecoxib 100 mg capsule (Celebrex) 100 mg PO BID 10/14/21 02/02/22 History benzonatate 100 mg capsule 100 mg PO BID PRN 02/02/22 02/02/22 History calcium carbonate 500 mg calcium 500 mg PO DAILY 02/02/22 02/02/22 History (1,250 mg) tablet cholecalciferol (vitamin D3) 50 50 mcg PO DAILY 02/02/22 02/02/22 History mcg (2,000 unit) capsule (Vitamin D3) fluoxetine 20 mg capsule 20 mg PO DAILY 02/02/22 02/02/22 History gabapentin 300 mg capsule 300 mg PO DAILY 02/02/22 02/02/22 History nintedanib 150 mg capsule (Ofev) 150 mg PO BID 02/02/22 02/02/22 History pantoprazole 40 mg tablet,delayed 40 mg PO BID 02/02/22 02/02/22 History release Patient History Medical History Abnormal chest x-ray Chronic cough Chronic sinusitis DJD (degenerative joint disease) Globus sensation reason for scheduled EGD Hypertension Interstitial lung disease Nasal polyps On home oxygen therapy 2L N/C prn Sacroiliitis, not elsewhere classified Vitamin D deficiency, unspecified Surgical History H/O gastric bypass 2008 H/O sinus surgery Dr. Hamm, left frontal sinusotomy, right and left total ethmoidectomy, right and left sphenoidotomy, right and left maxillary sinus antrostomies. 09/2013 History of appendectomy History of bladder suspension procedure History of colonoscopy History of esophagogastroduodenoscopy (EGD) History of hysterectomy History of lung biopsy 01/2018 History of nasal polypectomy per pt x50 procedures History of tonsillectomy and adenoidectomy History of tooth extraction upper and lower partial History of wisdom tooth extraction Family History Other Heart disease No family history of adverse response to anesthesia Social History Smoking Status: Never smoker Second Hand Exposure: No; Do You Dip or Chew Tobacco: No; Tobacco Cessation Education Requested by Patient: No Hx Alcohol Use: Yes Alcohol type: wine Hx Substance Use: No Preferred Language: Tajik Communication Ability: Effective Biomedical Manager Required: No Beliefs That Will Affect Care: None Current Living Situation: Spouse Other Information That Helps Us Care for You: No Feels Safe at Home: Yes Safety Concerns: Feels Safe At This Time Assistive Devices: Oxygen - Continuous Review of Systems Review of Systems: All systems reviewed & are unremarkable except as noted in HPI & below Physical Exam Physical Exam: Constitutional: No acute distress HEENT: EOMI, PERRLA Respiratory system: Decreased air entry bilaterally, no wheeze, no rhonchi, po sitive crackles Velcro-like appreciated bilaterally CVS: S1-S2 positive, no murmurs or gallops Abdomen: Soft, nontender, nondistended, positive bowel sounds x4 Extremities: +2 pulses bilaterally radialis/ dorsalis pedis, no cyanosis, no edema Neuro: Awake alert oriented x3 Psych: Normal mood and affect G/U: No Arvizu Skin: no rashes, warm and dry Lymphatic: no cervical or axillary lymphadenopathy Results & Data Results & Data ([facility]) Vital Signs (Past 12 Hours) Vital Signs Temp Pulse Pulse Resp BP Pulse Ox 02/03/22 07:54 36.7 C 66 22 172/76 H 93 02/03/22 04:30 36.7 C 76 30 H 134/68 95 02/03/22 03:07 36.8 C 70 24 129/73 97 02/03/22 00:44 69 20 90 02/02/22 23:49 36.7 C 69 22 127/65 93 02/02/22 22:18 70 Laboratory Results 02/02/22 12:45 02/02/22 12:45 PG Care Time/CCT Total # of Minutes Spent Total Time Spent with Patient: Total time spent is greater than 50% in coordination of care (as documented) at patient's floor/unit and/or counseling patient: Coding Level of Care Code 31785 Initial Inpt Care Lvl 3 Diagnoses IPF (idiopathic pulmonary fibrosis) J84.[address] scan of lung R91.8 Interstitial lung disease J84.9 Acute on chronic respiratory failure with hypoxemia J96.21
[2022-02-03] MEDS: methylPREDNISolone 40 MG in SYRINGE 0 ML IV SCH (16:05)
[2022-02-03] MEDS: ENOXAPARIN INJ 40 MG/0.4 ML SYR SQ SCH (21:26)
[2022-02-03] MEDS: MONTELUKAST SODIUM 10 MG TABLET PO SCH (21:26)
[2022-02-03] MEDS: NINTEDANIB ESYLATE 150 MG CAPSULE PO SCH (21:27)
--- NOTE | 2022-02-03 21:31 | Hospitalist Progress Note ---
Date of Service February 03, 2022 Assessment & Plan (1) IPF (idiopathic pulmonary fibrosis): Plan: 76 yo female with acute respiratory failure. CT scan showed Diffuse groundglass consolidation is seen throughout both lungs. will place on cefepime. will place on xopenex resume home meds. On 02/03 Patient required high flow oxygen. However once she went to the rest room in the afternoon, she desaturated and required BIPAP. Patient was treated today with steroids, diuretics and antibiotics. Appreciate input from Pulmonary. Also updated pulmonary provider in [place] as message was left at outpatient practice (as patient requested to update her pulmonary provider) (2) Abnormal CT scan of lung: Plan: Diffuse groundglass consolidation is seen throughout both lungs. This is nonspec ific and could represent pulmonary edema versus an infectious/inflammatory pneumonitis. (3) Cough: Plan: will check COVID/ BIOFIRE: negative. (4) Hypertension: Plan: resume metoprolol Admission and Anticipated Discharge Date Admission Date: February 02, 2022 Subjective Patient reports feeling comfortable. Patient though has required more oxygen than before. Now on high flow. ;ater in hospital stay, patient required bipap as her O2 sat dropped despite high floor after going to the rest room. Review of Systems Review of Systems: All systems reviewed & are unremarkable except as noted in HPI & below Physical Exam Constitutional: WD/WN, vitals as above Eyes: PERRL, conjunctivae normal, anicteric sclerae ENMT: external ear and nose normal, oropharynx normal Neck: trachea midline, no thyromegaly Respiratory: normal respiratory effort, lungs clear to auscultation Cardiovascular: RRR, no murmur, no edema Gastrointestinal (Abdomen): normal bowel sounds, soft, nontender, no hepatosplenomegaly Musculoskeletal: no cyanosis or clubbing, extremities motor strength 5/5 Skin: no rashes, warm and dry Neurologic: PERRL, EOMI, accommodation nl, no face palsy, no dysarthria Psychiatric: A+Ox3, euthymic affect Lymphatic: no cervical or axillary lymphadenopathy Results & Data Results & Data ([facility]) Vital Signs (Past 12 Hours) Vital Signs Temp Pulse Pulse Resp BP Pulse Ox 02/03/22 19:58 36.5 C 88 20 171/99 H 98 02/03/22 19:25 96 H 27 H 92 02/03/22 17:36 83 25 H 93 02/03/22 15:55 36.8 C 73 24 170/82 H 94 02/03/22 14:46 77 18 92 02/03/22 12:33 77 02/03/22 12:12 36.5 C 80 22 148/56 H 90 02/03/22 10:43 67 18 91 PG Care Time/CCT Total # of Minutes Spent Total Time Spent with Patient: Total time spent is greater than 50% in coordination of care (as documented) at patient's floor/unit and/or counseling patient: Coding Level of Care Code 13017 Subseq Hosp Care Lvl 3 Diagnoses IPF (idiopathic pulmonary fibrosis) J84.[address] scan of lung R91.8 Cough R05 Hypertension I10
[2022-02-04] MEDS: methylPREDNISolone 40 MG in SYRINGE 0 ML IV SCH ×2 (03:27→13:32)
[2022-02-04] MEDS: CEFEPIME 2,000 MG in SYRINGE 0 ML IV SCH ×3 (06:04→20:19)
[2022-02-04] MEDS: GABAPENTIN 300 MG CAP PO SCH (09:11)
[2022-02-04] MEDS: MULTIVITAMIN TAB PO SCH (09:12)
[2022-02-04] MEDS: METOPROLOL SUCC 50MG EXT REL TAB PO SCH ×2 (09:13→20:21)
[2022-02-04] MEDS: PANTOprazole 40 MG TAB PO SCH ×2 (09:13→20:22)
[2022-02-04] MEDS: FLUoxetine HCL 20 MG CAP PO SCH (09:14)
[2022-02-04] MEDS: CELECOXIB 100 MG CAP PO SCH ×2 (09:14→20:22)
[2022-02-04] MEDS: CHOLECALCIFEROL 1,000 UNITS 25 MCG TAB PO SCH (09:15)
[2022-02-04] MEDS: FERROUS SULFATE 325 MG TAB PO SCH (09:15)
[2022-02-04] MEDS: CALCIUM CARBONATE 1250MG TAB PO SCH (09:16)
[2022-02-04] MEDS: NINTEDANIB ESYLATE 150 MG CAPSULE PO SCH ×2 (09:17→20:22)
--- NOTE | 2022-02-04 09:43 | Hospitalist Progress Note ---
Date of Service February 04, 2022 Assessment & Plan (1) IPF (idiopathic pulmonary fibrosis): Plan: 76 yo female with acute respiratory failure. CT scan showed Diffuse groundglass consolidation is seen throughout both lungs. will place on cefepime. will place on xopenex resume home meds. On 02/03 Patient required high flow oxygen. However once she went to the rest room in the afternoon, she desaturated and required BIPAP. Patient was treated today with steroids, diuretics and antibiotics. Appreciate input from Pulmonary. Also updated pulmonary provider in [place] as message was left at outpatient practice (as patient requested to update her pulmonary provider) On 02/04 Patient continus to require high flow however, she is now on 35 liters and FI02 OF 95. will continue to monitor. continue antibiotics, steriods (2) Abnormal CT scan of lung: Plan: Diffuse groundglass consolidation is seen throughout both lungs. This is nonspecific and could represent pulmonary edema versus an infectious/inflammatory pneumonitis. (3) Cough: Plan: will check COVID/ BIOFIRE: negative. (4) Hypertension: Plan: resume metoprolol Admission and Anticipated Discharge Date Admission Date: February 02, 2022 Subjective 76 yo female reports feeling slightly better this AM. She is comfortable on her high flow. Review of Systems Review of Systems: All systems reviewed & are unremarkable except as noted in HPI & below Physical Exam Constitutional: WD/WN, vitals as above Eyes: PERRL, conjunctivae normal, anicteric sclerae ENMT: external ear and nose normal, oropharynx normal Neck: trachea midline, no thyromegaly Respiratory: normal respiratory effort, lungs clear to auscultation Cardiovascular: RRR, no murmur, no edema Gastrointestinal (Abdomen): normal bowel sounds, soft, nontender, no hepatosplenomegaly Musculoskeletal: no cyanosis or clubbing, extremities motor strength 5/5 Skin: no rashes, warm and dry Neurologic: PERRL, EOMI, accommodation nl, no face palsy, no dysarthria Psychiatric: A+Ox3, euthymic affect Lymphatic: no cervical or axillary lymphadenopathy Results & Data Results & Data ([facility]) Vital Signs (Past 12 Hours) Vital Signs Temp Pulse Pulse Resp BP Pulse Ox Pulse Ox 02/04/22 09:11 80 02/04/22 09:05 100 02/04/22 09:03 62 02/04/22 06:51 80 17 92 02/04/22 04:02 36.6 C 84 18 154/90 H 97 02/04/22 02:10 66 20 93 02/04/22 01:05 83 02/03/22 23:34 83 18 93 02/03/22 23:16 36.6 C 79 18 161/94 H 98 PG Care Time/CCT Total # of Minutes Spent Total Time Spent with Patient: Total time spent is greater than 50% in coordination of care (as documented) at patient's floor/unit and/or counseling patient: Coding Level of Care Code 38059 Subseq Hosp Care Lvl 3 Diagnoses IPF (idiopathic pulmonary fibrosis) J84.[address] scan of lung R91.8 Cough R05 Hypertension I10
[2022-02-04 10:09] LABS: Hematocrit (blood only) 40.1 % (37-47); Hemoglobin 13.4 g/dL (12.0-16.0); Mean Corpuscular Hemoglobin 31.3 pg (25-34); Mean Corpuscular Hgb Conc 33.4 g/dL (32-36); Mean Corpuscular Volume 93.7 fL (80-100); Mean Platelet Volume 9.6 fL (7.4-10.4); Platelet Count 353 K/uL (130-400); RDW Coefficient of Variation 13.9 % (11.5-14.5); RDW Standard Deviation 47.5 fL (36.4-46.3); Red Blood Count 4.28 M/uL (4.2-5.4); White Blood Count 17.59 K/uL (4.8-10.8)
[2022-02-04 10:26] LABS: BUN Creatinine Ratio 31.7 (10-20); Calcium 9.5 mg/dl (8.5-10.1); Creatinine Clr Calc Pharmacy 91.6 ml/min; Est GFR (African American) 104.1 ml/min; Est GFR (Non-African American) 89.8 ml/min; Potassium 4.5 mmol/L (3.5-5.1)
[2022-02-04] MEDS ORDERED: FUROSEMIDE 40 MG/4 ML VIAL IV ONE (11:06)
[2022-02-04] MEDS: MONTELUKAST SODIUM 10 MG TABLET PO SCH (20:22)
[2022-02-04] MEDS: ENOXAPARIN INJ 40 MG/0.4 ML SYR SQ SCH (20:22)
[2022-02-05] MEDS: methylPREDNISolone 40 MG in SYRINGE 0 ML IV SCH ×2 (04:28→16:03)
[2022-02-05] MEDS: CEFEPIME 2,000 MG in SYRINGE 0 ML IV SCH ×3 (04:28→20:37)
[2022-02-05 06:27] LABS: Creatinine Clr Calc Pharmacy 72.9 ml/min; Est GFR (Non-African American) 78.5 ml/min
[2022-02-05] MEDS: GABAPENTIN 300 MG CAP PO SCH (09:13)
[2022-02-05] MEDS: CHOLECALCIFEROL 1,000 UNITS 25 MCG TAB PO SCH (09:13)
[2022-02-05] MEDS: PANTOprazole 40 MG TAB PO SCH ×2 (09:13→20:39)
[2022-02-05] MEDS: MULTIVITAMIN TAB PO SCH (09:13)
[2022-02-05] MEDS: CALCIUM CARBONATE 1250MG TAB PO SCH (09:13)
[2022-02-05] MEDS: CELECOXIB 100 MG CAP PO SCH ×2 (09:13→20:38)
[2022-02-05] MEDS: CYANOCOBALAMIN (B-12) 2,500 MCG TABLET SL SCH (09:13)
[2022-02-05] MEDS: FERROUS SULFATE 325 MG TAB PO SCH (09:13)
[2022-02-05] MEDS: FLUoxetine HCL 20 MG CAP PO SCH (09:13)
[2022-02-05] MEDS: METOPROLOL SUCC 50MG EXT REL TAB PO SCH ×2 (09:13→21:52)
[2022-02-05] MEDS: NINTEDANIB ESYLATE 150 MG CAPSULE PO SCH ×2 (09:14→20:39)
[2022-02-05] MEDS ORDERED: FUROSEMIDE INJ 20 MG/2 ML VIAL IV ONE (11:01)
--- NOTE | 2022-02-05 11:02 | Pulmonology Progress Note ---
Date of Service February 05, 2022 Assessment & Plan (1) IPF (idiopathic pulmonary fibrosis): (2) Abnormal CT scan of lung: (3) Interstitial lung disease: (4) Acute on chronic respiratory failure with hypoxemia: (5) Pulmonary hypertension: Plan: CTA chest 02/02/2022 personally reviewed: Diffuse patchy groundglass opacities appreciated bilaterally Traction bronchiectasis bilateral lower lobes with honeycombing Positive mediastinal and hilar lymphadenopathy Groundglass opacities are new compared to CAT scan done 08/05/2020. Patient did have mediastinal and hilar lymphadenopathy even before 2D echo 02/04/2022: EF 65-70%, PA systolic pressure 50, grade 1 diastolic dysfunction -- Acute on chronic hypoxic respiratory failure In a patient who has underlying ILD BNP 337 Respiratory bio fire negative, influenza a/B negative COVID 19 NAAT negative Diffuse groundglass opacities could be from fluid overload Patient denies any hemoptysis but diffuse alveolar hemorrhage can look the same on the CAT scan. I highly doubt this in her case Acute exacerbation of ILD can give groundglass opacities as well Continue with O2 supplementation to keep oxygen saturation between 88-92% -- Hypertension Likely type III with type II Continue with gentle diuresis --ILD/IPF On Ofev --DNR/DNI Plan: In/out: Negative 480 Unknown dose of Lasix given to the patient Continue with Solu-Medrol given possible ILD exacerbation continue with Protonix twice daily Case discussed with Dr Soriano Please note the above document was generated using voice recognition software. It may contain grammatical, syntax or spelling errors.Any formal questions or concerns about the content, text or information contained within the body of this dictation should be directly addressed to the provider for clarification. Admission and Anticipated Discharge Date Admission Date: February 02, 2022 Subjective Patient seen and examined at bedside. No acute distress, no adverse events overnight At the time of examination patient was saturating 91% on 35 L, 90% FiO2 She was not in any respiratory distress Overall she says she feels the same. Still coughs up but is not yellow anymore. Denies any hemoptysis Does complain of difficulty swallowing which has been going on for a while. No headache, no chest pain. Urinating well Review of Systems Review of Systems: All systems reviewed & are unremarkable except as noted in Subjective Physical Exam Physical Exam: Constitutional: No acute distress HEENT: EOMI, PERRLA Respiratory system: Decreased air entry bilaterally, no wheeze, no rhonchi, posi tive crackles Velcro-like appreciated bilaterally CVS: S1-S2 positive, no murmurs or gallops, accentuated P2 Abdomen: Soft, nontender, nondistended, positive bowel sounds x4 Extremities: +2 pulses bilaterally radialis/ dorsalis pedis, no cyanosis, +1 pitting edema bilateral lower extremity Neuro: Awake alert oriented x3 Psych: Normal mood and affect G/U: No Arvizu Skin: no rashes, warm and dry Lymphatic: no cervical or axillary lymphadenopathy Results & Data Results & Data ([facility]) Vital Signs (Past 12 Hours) Vital Signs Temp Pulse Resp BP Pulse Ox 02/05/22 07:23 36.6 C 60 22 171/80 H 92 02/05/22 07:05 67 18 91 02/05/22 03:48 37 C 80 14 180/89 H 97 02/05/22 02:26 57 L 18 92 Laboratory Results 02/04/22 09:44 02/05/22 05:35 PG Care Time/CCT Total # of Minutes Spent Total Time Spent with Patient: Total time spent is greater than 50% in coordination of care (as documented) at patient's floor/unit and/or counseling patient: Coding Level of Care Code 24932 Subseq Hosp Care Lvl 2 Diagnoses IPF (idiopathic pulmonary fibrosis) J84.[address] scan of lung R91.8 Interstitial lung disease J84.9 Acute on chronic respiratory failure with hypoxemia J96.21 Pulmonary hypertension I27.20
[2022-02-05] MEDS: guaiFENesin/DEXTROM SYRUP 200MG/20MG 10ML UDC PO SCH ×2 (12:36→17:51)
[2022-02-05] MEDS: ENOXAPARIN INJ 40 MG/0.4 ML SYR SQ SCH (20:38)
[2022-02-05] MEDS: MONTELUKAST SODIUM 10 MG TABLET PO SCH (20:39)
--- NOTE | 2022-02-05 21:20 | Hospitalist Progress Note ---
Date of Service February 05, 2022 Assessment & Plan (1) IPF (idiopathic pulmonary fibrosis): Plan: 76 yo female with acute respiratory failure. CT scan showed Diffuse groundglass consolidation is seen throughout both lungs. will place on cefepime. will place on xopenex resume home meds. On 02/03 Patient required high flow oxygen. However once she went to the rest room in the afternoon, she desaturated and required BIPAP. Patient was treated today with steroids, diuretics and antibiotics. Appreciate input from Pulmonary. Also updated pulmonary provider in [place] as message was left at outpatient practice (as patient requested to update her pulmonary provider) On 02/04 Patient continus to require high flow however, she is now on 35 liters and FI02 OF 95. will continue to monitor. continue antibiotics, steriods on 02/05 Now on 35 liters/min and on 90 FIO2. continue antibiotics and steroids. placed on cough medicine. (2) Abnormal CT scan of lung: Plan: Diffuse groundglass consolidation is seen throughout both lungs. This is nonspecific and could represent pulmonary edema versus an infectious/inflammatory pneumonitis. (3) Cough: Plan: will check COVID/ BIOFIRE: negative. (4) Hypertension: Plan: resume metoprolol Admission and Anticipated Discharge Date Admission Date: February 02, 2022 Subjective Patient reports feeling comfortable. She has a cough but reports it is better controlled. Review of Systems Review of Systems: All systems reviewed & are unremarkable except as noted in HPI & below Physical Exam Physical Exam: Constitutional: WD/WN, vitals as above Eyes: PERRL, conjunctivae normal, anicteric sclerae ENMT: external ear and nose normal, oropharynx normal Neck: trachea midline, no thyromegaly Respiratory: normal respiratory effort, lungs clear to auscultation Cardiovascular: RRR, no murmur, no edema Gastrointestinal (Abdomen): normal bowel sounds, soft, nontender, no hepatosplenomegaly Musculoskeletal: no cyanosis or clubbing, extremities motor strength 5/5 Skin: no rashes, warm and dry Neurologic: PERRL, EOMI, accommodation nl, no face palsy, no dysarthria Psychiatric: A+Ox3, euthymic affect Lymphatic: no cervical or axillary lymphadenopathy Results & Data Results & Data ([facility]) Vital Signs (Past 12 Hours) Vital Signs Temp Pulse Resp BP Pulse Ox 02/05/22 19:44 36.4 C L 58 L 14 158/91 H 97 02/05/22 19:00 65 22 93 02/05/22 16:53 36.4 C L 63 18 133/85 96 02/05/22 15:05 62 18 91 02/05/22 11:40 36.3 C L 64 22 146/84 H 91 02/05/22 11:03 62 19 94 PG Care Time/CCT Total # of Minutes Spent Total Time Spent with Patient: Total time spent is greater than 50% in coordination of care (as documented) at patient's floor/unit and/or counseling patient: Coding Level of Care Code 44673 Subseq Hosp Care Lvl 2 Diagnoses IPF (idiopathic pulmonary fibrosis) J84.[address] scan of lung R91.8 Cough R05 Hypertension I10
[2022-02-06] MEDS: guaiFENesin/DEXTROM SYRUP 200MG/20MG 10ML UDC PO SCH ×5 (00:25→23:22)
[2022-02-06] MEDS: methylPREDNISolone 40 MG in SYRINGE 0 ML IV SCH ×2 (03:40→16:56)
[2022-02-06] MEDS: CEFEPIME 2,000 MG in SYRINGE 0 ML IV SCH ×3 (04:26→21:21)
[2022-02-06] MEDS: METOPROLOL SUCC 50MG EXT REL TAB PO SCH ×2 (08:51→20:55)
[2022-02-06] MEDS: NINTEDANIB ESYLATE 150 MG CAPSULE PO SCH ×2 (08:51→20:55)
[2022-02-06] MEDS: CELECOXIB 100 MG CAP PO SCH ×2 (08:51→20:54)
[2022-02-06] MEDS: PANTOprazole 40 MG TAB PO SCH ×2 (08:51→20:55)
[2022-02-06] MEDS: CHOLECALCIFEROL 1,000 UNITS 25 MCG TAB PO SCH (08:52)
[2022-02-06] MEDS: FLUoxetine HCL 20 MG CAP PO SCH (08:52)
[2022-02-06] MEDS: CALCIUM CARBONATE 1250MG TAB PO SCH (08:52)
[2022-02-06] MEDS: GABAPENTIN 300 MG CAP PO SCH (08:52)
[2022-02-06] MEDS: FERROUS SULFATE 325 MG TAB PO SCH (08:52)
[2022-02-06] MEDS: MULTIVITAMIN TAB PO SCH (08:52)
--- NOTE | 2022-02-06 09:33 | XRay Report ---
XR chest 1V portable HISTORY: 76 years-old Female follow up infiltrates follow-up study in a patient with bilateral pulmo nary opacities COMPARISON: CTA chest 02/02/2022 TECHNIQUE: Portable AP view of the chest FINDINGS: The cardiac silhouette is enlarged. Chronic interstitial lung disease redemonstrated. Unchanged bilat eral hilar prominence. No pneumothorax or large pleural effusion. There is mildly improved aeration o f the lungs compared to the prior study. Degenerative changes of the shoulders and spine. Surgical cl ips project over the upper abdomen. IMPRESSION: 1. Cardiomegaly with chronic interstitial lung disease. 2. Underlying pulmonary vascular congestion may be present. 3. There is improved aeration of the lungs compared to the 02/02/2022 exam. ACT 112: Negative or not required by law. The above report was generated using voice recognition software. It may contain grammatical, syntax o r spelling errors. Electronically signed by: Alfonzo Krishna M.D. 02/06/2022 9:32 AM
--- NOTE | 2022-02-06 10:06 | Pulmonology Progress Note ---
Date of Service February 06, 2022 Assessment & Plan (1) IPF (idiopathic pulmonary fibrosis): (2) Abnormal CT scan of lung: (3) Interstitial lung disease: (4) Acute on chronic respiratory failure with hypoxemia: (5) Pulmonary hypertension: Plan: 76-year-old female followed by [facility] pulmonology and also by Dr. Barr locally for history of UIP/IPF. She is on Ofev chronically. She presents for an ILD exacerbation. Patient notes that she normally uses 2 to 4 L of oxygen at baseline. She underwent a wedge biopsy of her lingula in 2019 which revealed findings compatible with usual interstitial pneumonia. Continue with the current steroid regimen twice daily and diuretics to maintain euvolemia. Continue to maintain FiO2 as minimal as possible to maintain saturations of 88 to 92%. She does have an element of secondary pulmonary hypertension related to chronic interstitial lung disease. No indication to start advanced pulmonary hypertension medications at this time. Chest CTA on 01/31 revealed bilateral groundglass opacities overlying chronic interstitial findings with traction bronchiectasis. Repeat chest x-ray ordered for today demonstrates continued coarse interstitial markings. No effusion seen. Lung volumes low. The chest x-ray does appear improved compared to the x-ray from 01/31/2022. The left lower lobe densities and the right upper lobe densities have improved. No obvious infectious etiology found as of yet. Procalcitonin was negative on admission. Viral studies negative as well. She is a high risk for pulmonary complications to undergo a bronchoscopy given her severe hypoxemia. Thank you for allowing us participate in the care of this patient. Please call with questions. Admission and Anticipated Discharge Date Admission Date: February 02, 2022 Subjective Patient seen and examined. She notes that her breathing is little bit easier today. She denies any cough. She denies any chest pain, fevers or chills. She notes that she was able to sit up in a chair for prolonged period of time yesterday. She is currently on 80% FiO2. I weaned her to 70% FiO2 and she tolerated this well. Review of Systems Review of Systems: All systems reviewed & are unremarkable except as noted in HPI & below Physical Exam Physical Exam: Constitutional: No acute distress HEENT: EOMI, PERRLA Respiratory system: Decreased air entry bilaterally, no wheeze, no rhonchi, positive crackles Velcro-like appreciated bilaterally CVS: S1-S2 positive, no murmurs or gallops, accentuated P2 Abdomen: Soft, nontender, nondistended, positive bowel sounds x4 Extremities: +2 pulses bilaterally radialis/ dorsalis pedis, no cyanosis, +1 pitting edema bilateral lower extremity Neuro: Awake alert oriented x3 Psych: Normal mood and affect G/U: No Arvizu Skin: no rashes, warm and dry Lymphatic: no cervical or axillary lymphadenopathy Results & Data Results & Data ([facility]) Vital Signs (Past 12 Hours) Vital Signs Temp Pulse Pulse Resp BP BP Pulse Ox 02/06/22 07:24 37.0 C 62 22 159/91 H 92 02/06/22 07:00 58 L 02/06/22 06:54 70 20 91 02/06/22 04:12 52 L 18 94 02/06/22 03:48 36.8 C 52 L 18 155/76 H 93 02/06/22 01:06 54 L 02/06/22 00:23 36.6 C 56 L 18 159/81 H 95 PG Care Time/CCT Total # of Minutes Spent Total Time Spent with Patient: Total time spent is greater than 50% in coordination of care (as documented) at patient's floor/unit and/or counseling patient: Coding Level of Care Code 03948 Subseq Hosp Care Lvl 2 Diagnoses IPF (idiopathic pulmonary fibrosis) J84.[address] scan of lung R91.8 Interstitial lung disease J84.9 Acute on chronic respiratory failure with hypoxemia J96.21 Pulmonary hypertension I27.20
[2022-02-06] MEDS: ENOXAPARIN INJ 40 MG/0.4 ML SYR SQ SCH (20:54)
[2022-02-06] MEDS: MONTELUKAST SODIUM 10 MG TABLET PO SCH (20:55)
--- NOTE | 2022-02-06 21:31 | Hospitalist Progress Note ---
Date of Service February 06, 2022 Assessment & Plan (1) IPF (idiopathic pulmonary fibrosis): Plan: 76 yo female with acute respiratory failure. CT scan showed Diffuse groundglass consolidation is seen throughout both lungs. will place on cefepime. will place on xopenex resume home meds. On 02/03 Patient required high flow oxygen. However once she went to the rest room in the afternoon, she desaturated and required BIPAP. Patient was treated today with steroids, diuretics and antibiotics. Appreciate input from Pulmonary. Also updated pulmonary provider in [place] as message was left at outpatient practice (as patient requested to update her pulmonary provider) On 02/04 Patient continus to require high flow however, she is now on 35 liters and FI02 OF 95. will continue to monitor. continue antibiotics, steriods on 02/05 Now on 35 liters/min and on 90 FIO2. continue antibiotics and steroids. placed on cough medicine. On 02/06 Patient is now on 35 liters and 65 fio2. Continue above medications (2) Abnormal CT scan of lung: Plan: Diffuse groundglass consolidation is seen throughout both lungs. This is nonspecific and could represent pulmonary edema versus an infectious/ inflammatory pneumonitis. (3) Cough: Plan: will check COVID/ BIOFIRE: negative. (4) Hypertension: Plan: resume metoprolol Admission and Anticipated Discharge Date Admission Date: February 02, 2022 Subjective Patient reports no new symptoms. Review of Systems Review of Systems: All systems reviewed & are unremarkable except as noted in HPI & below Physical Exam Physical Exam: Constitutional: WD/WN, vitals as above Eyes: PERRL, conjunctivae normal, anicteric sclerae ENMT: external ear and nose normal, oropharynx normal Neck: trachea midline, no thyromegaly Respiratory: normal respiratory effort, lungs clear to auscultation Cardiovascular: RRR, no murmur, no edema Gastrointestinal (Abdomen): normal bowel sounds, soft, nontender, no hepatosplenomegaly Musculoskeletal: no cyanosis or clubbing, extremities motor strength 5/5 Skin: no rashes, warm and dry Neurologic: PERRL, EOMI, accommodation nl, no face palsy, no dysarthria Psychiatric: A+Ox3, euthymic affect Lymphatic: no cervical or axillary lymphadenopathy Results & Data Results & Data ([facility]) Vital Signs (Past 12 Hours) Vital Signs Temp Pulse Pulse Resp BP BP Pulse Ox 02/06/22 19:44 60 18 92 02/06/22 19:00 36.4 C L 61 18 167/86 H 92 02/06/22 16:00 36.8 C 61 20 160/92 H 95 02/06/22 15:26 56 L 02/06/22 15:02 79 18 95 02/06/22 12:09 36.5 C 62 21 143/83 H 94 02/06/22 11:13 66 18 93 PG Care Time/CCT Total # of Minutes Spent Total Time Spent with Patient: Total time spent is greater than 50% in coordination of care (as documented) at patient's floor/unit and/or counseling patient: Coding Level of Care Code 00126 Subseq Hosp Care Lvl 2 Diagnoses IPF (idiopathic pulmonary fibrosis) J84.[address] scan of lung R91.8 Cough R05 Hypertension I10 Time Spent (min) 25
[2022-02-07] MEDS: methylPREDNISolone 40 MG in SYRINGE 0 ML IV SCH ×2 (03:44→17:04)
[2022-02-07] MEDS: CEFEPIME 2,000 MG in SYRINGE 0 ML IV SCH ×3 (04:37→21:39)
[2022-02-07] MEDS ORDERED: SODIUM CHLORIDE 0.9% 1000ML 250 ML IV ONE (04:50)
[2022-02-07] MEDS: guaiFENesin/DEXTROM SYRUP 200MG/20MG 10ML UDC PO SCH ×3 (05:08→17:04)
[2022-02-07 07:00] LABS: Hematocrit (blood only) 40.6 % (37-47); Hemoglobin 13.3 g/dL (12.0-16.0); Mean Corpuscular Hemoglobin 30.6 pg (25-34); Mean Corpuscular Hgb Conc 32.8 g/dL (32-36); Mean Corpuscular Volume 93.3 fL (80-100); Platelet Count 375 K/uL (130-400); RDW Coefficient of Variation 13.6 % (11.5-14.5); RDW Standard Deviation 46.6 fL (36.4-46.3); Red Blood Count 4.35 M/uL (4.2-5.4); White Blood Count 14.17 K/uL (4.8-10.8)
[2022-02-07 07:12] LABS: BUN Creatinine Ratio 49.3 (10-20); Calcium 8.9 mg/dl (8.5-10.1); Creatinine Clr Calc Pharmacy 81.5 ml/min; Est GFR (African American) 100.4 ml/min; Est GFR (Non-African American) 86.6 ml/min; Potassium 4.6 mmol/L (3.5-5.1)
[2022-02-07] MEDS: NINTEDANIB ESYLATE 150 MG CAPSULE PO SCH ×2 (08:53→21:39)
[2022-02-07] MEDS: METOPROLOL SUCC 50MG EXT REL TAB PO SCH ×2 (08:53→21:48)
[2022-02-07] MEDS: PANTOprazole 40 MG TAB PO SCH ×2 (08:53→21:41)
[2022-02-07] MEDS: CELECOXIB 100 MG CAP PO SCH ×2 (08:54→21:39)
[2022-02-07] MEDS: GABAPENTIN 300 MG CAP PO SCH (08:54)
[2022-02-07] MEDS: FLUoxetine HCL 20 MG CAP PO SCH (08:54)
[2022-02-07] MEDS: CALCIUM CARBONATE 1250MG TAB PO SCH (08:54)
[2022-02-07] MEDS: CHOLECALCIFEROL 1,000 UNITS 25 MCG TAB PO SCH (08:54)
[2022-02-07] MEDS: FERROUS SULFATE 325 MG TAB PO SCH (08:54)
[2022-02-07] MEDS: MULTIVITAMIN TAB PO SCH (08:54)
--- NOTE | 2022-02-07 09:27 | Pulmonology Progress Note ---
Date of Service February 07, 2022 Assessment & Plan (1) IPF (idiopathic pulmonary fibrosis): (2) Abnormal CT scan of lung: (3) Interstitial lung disease: (4) Acute on chronic respiratory failure with hypoxemia: (5) Pulmonary hypertension: Plan: 76-year-old female followed by [facility] pulmonology and also by Dr. Barr locally for history of UIP/IPF. She is on Ofev chronically. She presents for an ILD exacerbation. Patient notes that she normally uses 2 to 4 L of oxygen at baseline. She underwent a wedge biopsy of her lingula in 2019 which revealed findings compatible with usual interstitial pneumonia. Continue with the current steroid regimen twice daily and diuretics to maintain euvolemia. Continue to maintain FiO2 as minimal as possible to maintain saturations of 88 to 92%. She does have an element of secondary pulmonary hypertension related to chronic interstitial lung disease. No indication to start advanced pulmonary hypertension medications at this time. Chest CTA on 01/31 revealed bilateral groundglass opacities overlying chronic interstitial findings with traction bronchiectasis. Repeat chest x-ray ordered for today demonstrates continued coarse interstitial markings. No effusion seen. Lung volumes low. The chest x-ray does appear improved compared to the x-ray from 01/31/2022. The left lower lobe densities and the right upper lobe densities have improved. Reasonable to continue empiric antibiotics for total 7 days. Procalcitonin was negative on admission. Viral studies negative as well. She is a high risk for pulmonary complications to undergo a bronchoscopy given her severe hypoxemia. She is encouraged to use her flutter valve and incentive spirometer several times a day to promote airway clearance. Her inspiratory capacity is quite poor. Thank you for allowing us participate in the care of this patient. Please call with questions. Admission and Anticipated Discharge Date Admission Date: February 02, 2022 Subjective Patient seen and examined. Continues to be short of breath with exertion. She is down to 65% FiO2 and 35 L. She was able to sit up in a chair yesterday. She denies any cough at rest, but she does have a cough occasionally with exertion. It is a dry cough. No hemoptysis. Review of Systems Review of Systems: All systems reviewed & are unremarkable except as noted in HPI & below Physical Exam Physical Exam: Constitutional: No acute distress HEENT: EOMI, PERRLA Respiratory system: Decreased air entry bilaterally, no wheeze, no rhonchi, positive crackles Velcro-like appreciated bilaterally CVS: S1-S2 positive, no murmurs or gallops, accentuated P2 Abdomen: Soft, nontender, nondistended Extremities: +2 pulses bilaterally radialis/ dorsalis pedis, no cyanosis, +1 pitting edema bilateral lower extremity Neuro: Awake alert oriented x3 Psych: Normal mood and affect G/U: No Arvizu Skin: no rashes, warm and dry Lymphatic: no cervical or axillary lymphadenopathy Results & Data Results & Data ([facility]) Vital Signs (Past 12 Hours) Vital Signs Temp Pulse Pulse Resp BP Pulse Ox Pulse Ox 02/07/22 08:21 94 02/07/22 08:00 36.3 C L 52 L 67 22 183/88 H 94 02/07/22 07:18 65 18 97 02/07/22 03:53 36.6 C 61 17 154/70 H 93 02/07/22 03:24 71 18 92 02/07/22 01:12 67 02/07/22 00:00 36.6 C 63 20 170/84 H 93 02/06/22 22:11 79 18 96 PG Care Time/CCT Total # of Minutes Spent Total Time Spent with Patient: Total time spent is greater than 50% in coordination of care (as documented) at patient's floor/unit and/or counseling patient: Coding Level of Care Code 12942 Subseq Hosp Care Lvl 2 Diagnoses IPF (idiopathic pulmonary fibrosis) J84.[address] scan of lung R91.8 Interstitial lung disease J84.9 Acute on chronic respiratory failure with hypoxemia J96.21 Pulmonary hypertension I27.20
--- NOTE | 2022-02-07 20:39 | Hospitalist Progress Note ---
Date of Service February 07, 2022 Assessment & Plan (1) IPF (idiopathic pulmonary fibrosis): Plan: 76 yo female with acute respiratory failure. CT scan showed Diffuse groundglass consolidation is seen throughout both lungs. will place on cefepime. will place on xopenex resume home meds. On 02/03 Patient required high flow oxygen. However once she went to the rest room in the afternoon, she desaturated and required BIPAP. Patient was treated today with steroids, diuretics and antibiotics. Appreciate input from Pulmonary. Also updated pulmonary provider in [place] as message was left at outpatient practice (as patient requested to update her pulmonary provider) On 02/04 Patient continus to require high flow however, she is now on 35 liters and FI02 OF 95. will continue to monitor. continue antibiotics, steriods on 02/05 Now on 35 liters/min and on 90 FIO2. continue antibiotics and steroids. placed on cough medicine. On 02/06 Patient is now on 35 liters and 65 fio2. Continue above medications On 02/07 Patient is now on 25 liters high flow. will continue to monitor. (2) Abnormal CT scan of lung: Plan: Diffuse groundglass consolidation is seen throughout both lungs. This is nonspecific and could represent pulmonary edema versus an infectious/inflammatory pneumonitis. (3) Cough: Plan: will check COVID/ BIOFIRE: negative. (4) Hypertension: Plan: resume metoprolol Admission and Anticipated Discharge Date Admission Date: February 02, 2022 Subjective Patient reports no new symptoms. Tolerating high flow. Review of Systems Review of Systems: All systems reviewed & are unremarkable except as noted in HPI & below Physical Exam Physical Exam: Constitutional: WD/WN, vitals as above Eyes: PERRL, conjunctivae normal, anicteric sclerae ENMT: external ear and nose normal, oropharynx normal Neck: trachea midline, no thyromegaly Respiratory: normal respiratory effort, lungs clear to auscultation Cardiovascular: RRR, no murmur, no edema Gastrointestinal (Abdomen): normal bowel sounds, soft, nontender, no hepatosplenomegaly Musculoskeletal: no cyanosis or clubbing, extremities motor strength 5/5 Skin: no rashes, warm and dry Neurologic: PERRL, EOMI, accommodation nl, no face palsy, no dysarthria Psychiatric: A+Ox3, euthymic affect Lymphatic: no cervical or axillary lymphadenopathy Results & Data Results & Data ([facility]) Vital Signs (Past 12 Hours) Vital Signs Temp Pulse Pulse Resp BP BP Pulse Ox 02/07/22 19:12 58 L 91 02/07/22 19:00 36.6 C 54 L 18 164/84 H 95 02/07/22 16:23 36.7 C 58 L 18 145/73 H 90 02/07/22 15:00 55 L 02/07/22 14:56 69 16 92 02/07/22 11:50 36.6 C 62 22 156/82 H 91 02/07/22 10:47 67 18 92 PG Care Time/CCT Total # of Minutes Spent Total Time Spent with Patient: Total time spent is greater than 50% in coordination of care (as documented) at patient's floor/unit and/or counseling patient: Coding Level of Care Code 60974 Subseq Hosp Care Lvl 2 Diagnoses IPF (idiopathic pulmonary fibrosis) J84.[address] scan of lung R91.8 Cough R05 Hypertension I10 Time Spent (min) 25
[2022-02-07] MEDS: ENOXAPARIN INJ 40 MG/0.4 ML SYR SQ SCH (21:39)
[2022-02-07] MEDS: MONTELUKAST SODIUM 10 MG TABLET PO SCH (21:40)
[2022-02-08] MEDS: guaiFENesin/DEXTROM SYRUP 200MG/20MG 10ML UDC PO SCH ×4 (01:08→17:18)
[2022-02-08] MEDS: methylPREDNISolone 40 MG in SYRINGE 0 ML IV SCH ×2 (04:46→17:17)
[2022-02-08] MEDS: CEFEPIME 2,000 MG in SYRINGE 0 ML IV SCH ×3 (04:47→21:17)
[2022-02-08 08:24] LABS: Creatinine Clr Calc Pharmacy 90.3 ml/min; Est GFR (African American) 103.5 ml/min; Est GFR (Non-African American) 89.3 ml/min
[2022-02-08] MEDS: NINTEDANIB ESYLATE 150 MG CAPSULE PO SCH ×2 (08:38→21:20)
[2022-02-08] MEDS: FERROUS SULFATE 325 MG TAB PO SCH (08:39)
[2022-02-08] MEDS: PANTOprazole 40 MG TAB PO SCH ×2 (08:39→21:19)
[2022-02-08] MEDS: METOPROLOL SUCC 50MG EXT REL TAB PO SCH ×2 (08:39→21:18)
[2022-02-08] MEDS: CELECOXIB 100 MG CAP PO SCH ×2 (08:39→21:17)
[2022-02-08] MEDS: CALCIUM CARBONATE 1250MG TAB PO SCH (08:39)
[2022-02-08] MEDS: MULTIVITAMIN TAB PO SCH (08:40)
[2022-02-08] MEDS: FLUoxetine HCL 20 MG CAP PO SCH (08:40)
[2022-02-08] MEDS: GABAPENTIN 300 MG CAP PO SCH (08:40)
[2022-02-08] MEDS: CHOLECALCIFEROL 1,000 UNITS 25 MCG TAB PO SCH (08:40)
--- NOTE | 2022-02-08 09:00 | Pulmonology Progress Note ---
Date of Service February 08, 2022 Assessment & Plan (1) IPF (idiopathic pulmonary fibrosis): (2) Abnormal CT scan of lung: (3) Interstitial lung disease: (4) Acute on chronic respiratory failure with hypoxemia: (5) Pulmonary hypertension: Plan: 76-year-old female followed by [facility] pulmonology and also by Dr. Momo malave for history of UIP/IPF. She is on Ofev chronically. She presents for an ILD exacerbation. Patient notes that she normally uses 2 to 4 L of oxygen at baseline. Patient with a likely ILD flare. She underwent a wedge biopsy of her lingula in 2019 which revealed findings compatible with usual interstitial pneumonia. Continue with the current steroid regimen twice daily and diuretics to maintain euvolemia. Continue to maintain FiO2 as minimal as possible to maintain saturations of 88 to 92%. She does have an element of secondary pulmonary hypertension related to chronic interstitial lung disease. No indication to start advanced pulmonary hypertension medications at this time. Chest CTA on 01/31 revealed bilateral groundglass opacities overlying chronic interstitial findings with traction bronchiectasis. Repeat chest x-ray 02/06/2022 demonstrates continued coarse interstitial markings. No effusion seen. Lung volumes low. The chest x-ray does appear improved compared to the x-ray from 01/31/2022. The left lower lobe densities and the right upper lobe densities have improved. Reasonable to continue empiric antibiotics for total 7 days. Procalcitonin was negative on admission. Viral studies negative as well. She is a high risk for pulmonary complications to undergo a bronchoscopy given her severe hypoxemia. She is encouraged to use her flutter valve and incentive spirometer several times a day to promote airway clearance. Her inspiratory capacity is quite poor. Thank you for allowing us participate in the care of this patient. Please call with questions. Admission and Anticipated Discharge Date Admission Date: February 02, 2022 Subjective Patient seen and examined. Remains generally unchanged compared to yesterday. Still short of breath with exertion and desaturates easily with exertion. Currently on 25 L of high flow nasal cannula at 60% FiO2. Still has a very poor inspiratory capacity when using the incentive spirometer. Discussed with bedside nurse as well. Review of Systems Review of Systems: All systems reviewed & are unremarkable except as noted in HPI & below Physical Exam Physical Exam: Constitutional: No acute distress HEENT: EOMI, PERRLA Respiratory system: Decreased air entry bilaterally, no wheeze, no rhonchi, positive crackles Velcro-like appreciated bilaterally CVS: S1-S2 positive, no murmurs or gallops, accentuated P2 Abdomen: Soft, nontender, nondistended Extremities: +2 pulses bilaterally radialis/ dorsalis pedis, no cyanosis, +1 pitting edema bilateral lower extremity Neuro: Awake alert oriented x3 Psych: Normal mood and affect G/U: No Arvizu Skin: no rashes, warm and dry Lymphatic: no cervical or axillary lymphadenopathy Results & Data Results & Data ([facility]) Vital Signs (Past 12 Hours) Vital Signs Temp Pulse Pulse Resp BP Pulse Ox 02/08/22 07:34 36.7 C 56 L 18 187/80 H 91 02/08/22 07:00 58 L 20 94 02/08/22 04:41 37.0 C 59 L 20 160/75 H 96 02/08/22 02:38 54 L 98 02/08/22 00:15 92 02/08/22 00:14 22 92 02/07/22 23:58 36.6 C 62 18 167/73 H 90 02/07/22 22:17 58 L 02/07/22 21:34 57 L 172/89 H PG Care Time/CCT Total # of Minutes Spent Total Time Spent with Patient: Total time spent is greater than 50% in coordination of care (as documented) at patient's floor/unit and/or counseling patient: Coding Level of Care Code 79628 Subseq Hosp Care Lvl 2 Diagnoses IPF (idiopathic pulmonary fibrosis) J84.[address] scan of lung R91.8 Interstitial lung disease J84.9 Acute on chronic respiratory failure with hypoxemia J96.21 Pulmonary hypertension I27.20
--- NOTE | 2022-02-08 17:53 | Hospitalist Progress Note ---
Date of Service February 08, 2022 Assessment & Plan (1) IPF (idiopathic pulmonary fibrosis): Plan: 76 yo female with acute respiratory failure. CT scan showed Diffuse groundglass consolidation is seen throughout both lungs. will place on cefepime. will place on xopenex resume home meds. On 02/03 Patient required high flow oxygen. However once she went to the rest room in the afternoon, she desaturated and required BIPAP. Patient was treated today with steroids, diuretics and antibiotics. Appreciate input from Pulmonary. Also updated pulmonary provider in [place] as message was left at outpatient practice (as patient requested to update her pulmonary provider) On 02/04 Patient continus to require high flow however, she is now on 35 liters and FI02 OF 95. will continue to monitor. continue antibiotics, steriods on 02/05 Now on 35 liters/min and on 90 FIO2. continue antibiotics and steroids. placed on cough medicine. On 02/06 Patient is now on 35 liters and 65 fio2. Continue above medications On 02/07 Patient is now on 25 liters high flow. will continue to monitor. On 02/08 Patient tolerated a few hours in nasal cannula of 12 but then was bumped up to 25 LITERS. Patient is showing recovery despite her advanced IPF. (2) Abnormal CT scan of lung: Plan: Diffuse groundglass consolidation is seen throughout both lungs. This is nonspecific and could represent pulmonary edema versus an infectious/inflammatory pneumonitis. (3) Cough: Plan: will check COVID/ BIOFIRE: negative. (4) Hypertension: Plan: resume metoprolol Admission and Anticipated Discharge Date Admission Date: February 02, 2022 Subjective 76 yo female who reports feeling well. Review of Systems 2 Review of Systems: All systems reviewed & are unremarkable except as noted in HPI & below Physical Exam Physical Exam: Constitutional: WD/WN, vitals as above Eyes: PERRL, conjunctivae normal, anicteric sclerae ENMT: external ear and nose normal, oropharynx normal Neck: trachea midline, no thyromegaly Respiratory: normal respiratory effort, lungs clear to auscultation Cardiovascular: RRR, no murmur, no edema Gastrointestinal (Abdomen): normal bowel sounds, soft, nontender, no h epatosplenomegaly Musculoskeletal: no cyanosis or clubbing, extremities motor strength 5/5 Skin: no rashes, warm and dry Neurologic: PERRL, EOMI, accommodation nl, no face palsy, no dysarthria Psychiatric: A+Ox3, euthymic affect Lymphatic: no cervical or axillary lymphadenopathy Constitutional: WD/WN, vitals as above Eyes: PERRL, conjunctivae normal, anicteric sclerae ENMT: external ear and nose normal, oropharynx normal Neck: trachea midline, no thyromegaly Respiratory: normal respiratory effort, lungs clear to auscultation Cardiovascular: RRR, no murmur, no edema Gastrointestinal (Abdomen): normal bowel sounds, soft, nontender, no hepatosplenomegaly Musculoskeletal: no cyanosis or clubbing, extremities motor strength 5/5 Skin: no rashes, warm and dry Neurologic: PERRL, EOMI, accommodation nl, no face palsy, no dysarthria Psychiatric: A+Ox3, euthymic affect Lymphatic: no cervical or axillary lymphadenopathy Results & Data Results & Data ([facility]) Vital Signs (Past 12 Hours) Vital Signs Temp Pulse Resp BP Pulse Ox 02/08/22 15:24 37.0 C 62 18 144/87 H 98 02/08/22 11:17 36.7 C 61 20 164/92 H 93 02/08/22 07:34 36.7 C 56 L 18 187/80 H 91 02/08/22 07:00 58 L 20 94 PG Care Time/CCT Total # of Minutes Spent Total Time Spent with Patient: Total time spent is greater than 50% in coordination of care (as documented) at patient's floor/unit and/or counseling patient: Coding Level of Care Code 36674 Subseq Hosp Care Lvl 2 Diagnoses IPF (idiopathic pulmonary fibrosis) J84.[address] scan of lung R91.8 Cough R05 Hypertension I10 Time Spent (min) 25
[2022-02-08] MEDS ORDERED: PANTOprazole 40 MG TAB PO SCH (21:00)
[2022-02-08] MEDS: ENOXAPARIN INJ 40 MG/0.4 ML SYR SQ SCH (21:18)
[2022-02-08] MEDS: MONTELUKAST SODIUM 10 MG TABLET PO SCH (21:19)
[2022-02-09] MEDS: guaiFENesin/DEXTROM SYRUP 200MG/20MG 10ML UDC PO SCH ×5 (00:05→23:53)
[2022-02-09] MEDS: methylPREDNISolone 40 MG in SYRINGE 0 ML IV SCH ×2 (05:00→16:45)
[2022-02-09] MEDS: CEFEPIME 2,000 MG in SYRINGE 0 ML IV SCH ×2 (05:01→13:21)
[2022-02-09] MEDS: FERROUS SULFATE 325 MG TAB PO SCH (09:17)
[2022-02-09] MEDS: CALCIUM CARBONATE 1250MG TAB PO SCH (09:17)
[2022-02-09] MEDS: GABAPENTIN 300 MG CAP PO SCH (09:17)
[2022-02-09] MEDS: CELECOXIB 100 MG CAP PO SCH ×2 (09:17→21:32)
[2022-02-09] MEDS: PANTOprazole 40 MG TAB PO SCH ×2 (09:17→21:34)
[2022-02-09] MEDS: CHOLECALCIFEROL 1,000 UNITS 25 MCG TAB PO SCH (09:17)
[2022-02-09] MEDS: MULTIVITAMIN TAB PO SCH (09:17)
[2022-02-09] MEDS: FLUoxetine HCL 20 MG CAP PO SCH (09:18)
[2022-02-09] MEDS: METOPROLOL SUCC 50MG EXT REL TAB PO SCH ×2 (09:18→21:33)
[2022-02-09] MEDS: NINTEDANIB ESYLATE 150 MG CAPSULE PO SCH ×2 (09:18→21:34)
--- NOTE | 2022-02-09 15:09 | Hospitalist Progress Note ---
Date of Service February 09, 2022 Assessment & Plan (1) IPF (idiopathic pulmonary fibrosis): Plan: 76 yo female with acute respiratory failure. has a hx of advanced IPF CT scan showed Diffuse groundglass consolidation is seen throughout both lungs. Initially required high flow oxygen 55L, however has been weaned down to 5L FIO2 55 Continue steroids, diuretics and antibiotics. Appreciate input from Pulmonary. (2) Abnormal CT scan of lung: Plan: Diffuse groundglass consolidation is seen throughout both lungs. This is nonspecific and could represent pulmonary edema versus an in fectious/inflammatory pneumonitis. (3) Cough: Plan: will check COVID/ BIOFIRE: negative. (4) Hypertension: Plan: resume metoprolol Admission and Anticipated Discharge Date Admission Date: February 02, 2022 Subjective patient seen and examined today, appears comfortable in bed, says SOB has improved Review of Systems Review of Systems: All systems reviewed are negative, apart from the ones contained in the history. Physical Exam Physical Exam: The patient is awake, alert and oriented 3, well developed and well nourished, normocephalic and atraumatic, lying in bed and in no acute distress. HEENT--PERRL, EOMI, mucous membranes and oropharynx mildly dry Neck--supple. No JVD. No bruits. Thyroid normal, trachea midline, no adenopathy. Heart--normal S1 and S2. No murmurs, rubs or gallops. Lungs--reduced air entry on auscultation Abdomen--normal bowel sounds and soft. Mild epigastric and left sided abdominal pain Extremities--no cyanosis or clubbing. No edema. Dermatologic--normal skin turgor, normal color, no abnormal lymph nodes, no rash. Neurologic--cranial nerves II through XII grossly intact. Rheumatologic--normal range of motion. Psychiatric--normal affect. Results & Data Results & Data ([facility]) Vital Signs (Past 12 Hours) Vital Signs Temp Pulse Pulse Resp BP BP Pulse Ox 02/09/22 15:00 57 L 02/09/22 11:06 97.9 F 66 22 155/84 H 90 02/09/22 09:15 67 162/85 H 02/09/22 07:17 97.9 F 60 16 154/87 H 94 02/09/22 07:00 57 L 02/09/22 04:02 97.9 F 57 L 20 151/88 H 93 PG Care Time/CCT Total # of Minutes Spent Total Time Spent with Patient: Total time spent is greater than 50% in coordination of care (as documented) at patient's floor/unit and/or counseling patient: Coding Level of Care Code 02927 Subseq Hosp Care Lvl 2 Diagnoses IPF (idiopathic pulmonary fibrosis) J84.[address] scan of lung R91.8 Cough R05 Hypertension I10 Time Spent (min) 35
[2022-02-09] MEDS: ENOXAPARIN INJ 40 MG/0.4 ML SYR SQ SCH (21:32)
[2022-02-09] MEDS: MONTELUKAST SODIUM 10 MG TABLET PO SCH (21:33)
[2022-02-10] MEDS: methylPREDNISolone 40 MG in SYRINGE 0 ML IV SCH ×2 (04:11→16:07)
[2022-02-10] MEDS: guaiFENesin/DEXTROM SYRUP 200MG/20MG 10ML UDC PO SCH ×3 (05:36→17:25)
[2022-02-10 07:00] LABS: Hemoglobin 14.2 g/dL (12.0-16.0); Mean Corpuscular Hemoglobin 30.9 pg (25-34); Mean Corpuscular Volume 93.7 fL (80-100); Mean Platelet Volume 10.3 fL (7.4-10.4); Platelet Count 343 K/uL (130-400); RDW Coefficient of Variation 13.5 % (11.5-14.5); RDW Standard Deviation 46.3 fL (36.4-46.3); Red Blood Count 4.59 M/uL (4.2-5.4); White Blood Count 17.47 K/uL (4.8-10.8)
[2022-02-10 07:27] LABS: BUN Creatinine Ratio 33.3 (10-20); Calcium 8.8 mg/dl (8.5-10.1); Creatinine Clr Calc Pharmacy 86.6 ml/min; Est GFR (African American) 102.4 ml/min; Est GFR (Non-African American) 88.4 ml/min; Potassium 4.7 mmol/L (3.5-5.1)
[2022-02-10] MEDS: CELECOXIB 100 MG CAP PO SCH ×2 (09:40→20:29)
[2022-02-10] MEDS: GABAPENTIN 300 MG CAP PO SCH (09:41)
[2022-02-10] MEDS: METOPROLOL SUCC 50MG EXT REL TAB PO SCH ×2 (09:41→20:28)
[2022-02-10] MEDS: PANTOprazole 40 MG TAB PO SCH ×2 (09:41→20:29)
[2022-02-10] MEDS: CALCIUM CARBONATE 1250MG TAB PO SCH (09:42)
[2022-02-10] MEDS: CHOLECALCIFEROL 1,000 UNITS 25 MCG TAB PO SCH (09:42)
[2022-02-10] MEDS: FERROUS SULFATE 325 MG TAB PO SCH (09:43)
[2022-02-10] MEDS: MULTIVITAMIN TAB PO SCH (09:43)
[2022-02-10] MEDS: FLUoxetine HCL 20 MG CAP PO SCH (09:43)
[2022-02-10] MEDS: NINTEDANIB ESYLATE 150 MG CAPSULE PO SCH ×2 (09:44→20:28)
--- NOTE | 2022-02-10 14:07 | Hospitalist Progress Note ---
Date of Service February 10, 2022 Assessment & Plan (1) IPF (idiopathic pulmonary fibrosis): Plan: 76 yo female with acute respiratory failure. has a hx of advanced IPF CT scan showed Diffuse groundglass consolidation is seen throughout both lungs. Initially required high flow oxygen 55L, however has been weaned down to 8L via nasal canula Wean down to baseline 2-4L before discharge home Continue steroids, diuretics and antibiotics. Appreciate input from Pulmonary. (2) Acute on chronic respiratory failure with hypoxemia: Plan: Secondary to exacerbation of IPF patient currently on 8L of oxygen through nasal canula Goal is to wean down to 2-4 L, which is her baseline (3) Abnormal CT scan of lung: Plan: Diffuse groundglass consolidation is seen throughout both lungs. This is nonspecific and could represent pulmonary edema versus an infectious/inflammatory pneumonitis. (4) Cough: Plan: will check COVID/ BIOFIRE: negative. (5) Hypertension: Plan: resume metoprolol Plan: D/C home when she is weaned down to 2-4L of oxygen through nasal canula Admission and Anticipated Discharge Date Admission Date: February 02, 2022 Subjective patient seen and examined today, appears comfortable in bed, says SOB has improved Review of Systems Review of Systems: All systems reviewed are negative, apart from the ones contained in the history. Physical Exam Physical Exam: The patient is awake, alert and oriented 3, well developed and well nourished, normocephalic and atraumatic, lying in bed and in no acute distress. HEENT--PERRL, EOMI, mucous membranes and oropharynx mildly dry Neck--supple. No JVD. No bruits. Thyroid normal, trachea midline, no adenopathy. Heart--normal S1 and S2. No murmurs, rubs or gallops. Lungs--reduced air entry on auscultation Abdomen--normal bowel sounds and soft. Mild epigastric and left sided abdominal pain Extremities--no cyanosis or clubbing. No edema. Dermatologic--normal skin turgor, normal color, no abnormal lymph nodes, no rash. Neurologic--cranial nerves II through XII grossly intact. Rheumatologic--normal range of motion. Psychiatric--normal affect. Results & Data Results & Data ([facility]) Vital Signs (Past 12 Hours) Vital Signs Temp Pulse Pulse Resp BP BP Pulse Ox 02/10/22 10:55 97.7 F 58 L 18 167/91 H 94 02/10/22 08:00 52 L 02/10/22 07:10 98.2 F 56 L 18 166/82 H 96 02/10/22 04:22 98.1 F 58 L 20 159/79 H 97 Pulse Ox 02/10/22 10:55 02/10/22 08:00 96 02/10/22 07:10 02/10/22 04:22 PG Care Time/CCT Total # of Minutes Spent Total Time Spent with Patient: Total time spent is greater than 50% in coordination of care (as documented) at patient's floor/unit and/or counseling patient: Coding Level of Care Code 87171 Subseq Hosp Care Lvl 2 Diagnoses IPF (idiopathic pulmonary fibrosis) J84.[address] scan of lung R91.8 Cough R05 Hypertension I10 Acute on chronic respiratory failure with hypoxemia J96.21 Time Spent (min) 35
[2022-02-10] MEDS: MONTELUKAST SODIUM 10 MG TABLET PO SCH (20:29)
[2022-02-10] MEDS: ENOXAPARIN INJ 40 MG/0.4 ML SYR SQ SCH (20:29)
[2022-02-11] MEDS: guaiFENesin/DEXTROM SYRUP 200MG/20MG 10ML UDC PO SCH ×5 (00:03→23:47)
[2022-02-11] MEDS: methylPREDNISolone 40 MG in SYRINGE 0 ML IV SCH ×2 (04:39→16:58)
[2022-02-11 06:36] LABS: Creatinine Clr Calc Pharmacy 85.6 ml/min; Est GFR (African American) 101.9 ml/min; Est GFR (Non-African American) 87.9 ml/min
[2022-02-11] MEDS: PANTOprazole 40 MG TAB PO SCH ×2 (08:28→20:38)
[2022-02-11] MEDS: CELECOXIB 100 MG CAP PO SCH ×2 (08:28→20:38)
[2022-02-11] MEDS: MULTIVITAMIN TAB PO SCH (08:28)
[2022-02-11] MEDS: FERROUS SULFATE 325 MG TAB PO SCH (08:29)
[2022-02-11] MEDS: CHOLECALCIFEROL 1,000 UNITS 25 MCG TAB PO SCH (08:29)
[2022-02-11] MEDS: GABAPENTIN 300 MG CAP PO SCH (08:29)
[2022-02-11] MEDS: FLUoxetine HCL 20 MG CAP PO SCH (08:29)
[2022-02-11] MEDS: METOPROLOL SUCC 50MG EXT REL TAB PO SCH ×2 (08:30→20:39)
[2022-02-11] MEDS: CALCIUM CARBONATE 1250MG TAB PO SCH (08:30)
[2022-02-11] MEDS: NINTEDANIB ESYLATE 150 MG CAPSULE PO SCH ×2 (08:30→20:39)
--- NOTE | 2022-02-11 12:02 | Pulmonology Progress Note ---
Date of Service February 11, 2022 Assessment & Plan (1) IPF (idiopathic pulmonary fibrosis): (2) Abnormal CT scan of lung: (3) Interstitial lung disease: (4) Acute on chronic respiratory failure with hypoxemia: (5) Pulmonary hypertension: Plan: 76-year-old female followed by [facility] pulmonology and also by Dr. Barr locally for history of UIP/IPF. She is on Ofev chronically. She presents for an ILD exacerbation. Patient notes that she normally uses 2 to 4 L of oxygen at baseline. She underwent a wedge biopsy of her lingula in 2019 which revealed findings compatible with usual interstitial pneumonia. Patient is near her baseline oxygen requirement needs. Recommend transitioning her to oral prednisone at a dose of 40 mg daily starting tomorrow. Would recommend to taper by 5 mg every 3 days until off. Chest CTA on 01/31 revealed bilateral groundglass opacities overlying chronic interstitial findings with traction bronchiectasis. Repeat chest x-ray 02/06/2022 demonstrates continued coarse interstitial markings. No effusion seen. Lung volumes low. The chest x-ray does appear improved compared to the x-ray from 01/31/2022. The left lower lobe densities and the right upper lobe densities have improved. She is encouraged to use her flutter valve and incentive spirometer several times a day to promote airway clearance. Her inspiratory capacity is quite poor. Pulmonary to sign off at this time. Please call with questions. Thank you for allowing us to participate in the care of this patient. Admission and Anticipated Discharge Date Admission Date: February 02, 2022 Subjective Patient seen and examined today. Oxygen requirements have significantly improved. She is currently on 5 L of oxygen saturating in the mid 90s. She notes that her cough is improved, but still present. She denies chest pain, fevers or chills. Review of Systems Review of Systems: All systems reviewed & are unremarkable except as noted in HPI & below Physical Exam Physical Exam: Constitutional: No acute distress HEENT: EOMI, PERRLA Respiratory system: Decreased air entry bilaterally, no wheeze, no rhonchi, positive crackles Velcro-like appreciated bilaterally CVS: S1-S2 positive, no murmurs or gallops, accentuated P2 Abdomen: Soft, nontender, nondistended Extremities: +2 pulses bilaterally radialis/ dorsalis pedis, no cyanosis, +1 pitting edema bilateral lower extremity Neuro: Awake alert oriented x3 Psych: Normal mood and affect G/U: No Arvizu Skin: no rashes, warm and dry Lymphatic: no cervical or axillary lymphadenopathy Results & Data Results & Data ([facility]) Vital Signs (Past 12 Hours) Vital Signs Temp Pulse Pulse Resp BP Pulse Ox Pulse Ox 02/11/22 08:00 52 L 95 02/11/22 07:51 36.7 C 53 L 18 176/81 H 93 02/11/22 03:32 36.5 C 52 L 18 139/75 93 PG Care Time/CCT Total # of Minutes Spent Total Time Spent with Patient: Total time spent is greater than 50% in coordination of care (as documented) at patient's floor/unit and/or counseling patient: Coding Level of Care Code 22845 Subseq Hosp Care Lvl 2 Diagnoses IPF (idiopathic pulmonary fibrosis) J84.[address] scan of lung R91.8 Interstitial lung disease J84.9 Acute on chronic respiratory failure with hypoxemia J96.21 Pulmonary hypertension I27.20
--- NOTE | 2022-02-11 12:11 | Hospitalist Progress Note ---
Date of Service February 11, 2022 Assessment & Plan (1) IPF (idiopathic pulmonary fibrosis): Plan: 76 yo female with acute respiratory failure. has a hx of advanced IPF CT scan showed Diffuse groundglass consolidation is seen throughout both lungs. Initially required high flow oxygen 55L, however has been weaned down to 8L via nasal canula Wean down to baseline 2-4L before discharge home Continue steroids, diuretics and antibiotics. Appreciate input from Pulmonary. (2) Acute on chronic respiratory failure with hypoxemia: Plan: Secondary to exacerbation of IPF patient currently on 8L of oxygen through nasal canula Goal is to wean down to 2-4 L, which is her baseline (3) Abnormal CT scan of lung: Plan: Diffuse groundglass consolidation is seen throughout both lungs. This is nonspecific and could represent pulmonary edema versus an infectious/inflammatory pneumonitis. (4) Cough: Plan: will check COVID/ BIOFIRE: negative. (5) Hypertension: Plan: resume metoprolol Plan: D/C home when she is weaned down to 2-4L of oxygen through nasal canula and <= 6LPM on exertion Admission and Anticipated Discharge Date Admission Date: February 02, 2022 Subjective Patient keen to go home but still dropping O2 sats on minimal exertion down to 70s. Not yet had PT/OT evals. Review of Systems Review of Systems: All systems reviewed & are unremarkable except as noted in Subjective Physical Exam Constitutional: WD/WN, vitals as above Respiratory: normal respiratory effort Auscultation: + crackles (fine throughout) Cardiovascular: RRR, no murmur, no edema Gastrointestinal (Abdomen): normal bowel sounds, soft, nontender, no hepatosplenomegaly Skin: no rashes, warm and dry Neurologic: moves all extremities and awake; not confused Psychiatric: A+Ox3, euthymic affect Results & Data Results & Data ([facility]) Vital Signs (Past 12 Hours) Vital Signs Temp Pulse Pulse Resp BP Pulse Ox Pulse Ox 02/11/22 08:00 52 L 95 02/11/22 07:51 36.7 C 53 L 18 176/81 H 93 02/11/22 03:32 36.5 C 52 L 18 139/75 93 PG Care Time/CCT Total # of Minutes Spent Total Time Spent with Patient: Total time spent is greater than 50% in coordination of care (as documented) at patient's floor/unit and/or counseling patient: Coding Level of Care Code 62026 Subseq Hosp Care Lvl 2 Diagnoses IPF (idiopathic pulmonary fibrosis) J84.112 Acute on chronic respiratory failure with hypoxemia J96.[address] scan of lung R91.8 Cough R05 Hypertension I10
[2022-02-11] MEDS: MONTELUKAST SODIUM 10 MG TABLET PO SCH (20:38)
[2022-02-11] MEDS: ENOXAPARIN INJ 40 MG/0.4 ML SYR SQ SCH (20:38)
[2022-02-12] MEDS: methylPREDNISolone 40 MG in SYRINGE 0 ML IV SCH (04:06)
[2022-02-12] MEDS: guaiFENesin/DEXTROM SYRUP 200MG/20MG 10ML UDC PO SCH ×3 (05:43→17:00)
[2022-02-12 06:31] LABS: Basophils # (auto) 0.01 K/uL (0-0.2); Basophils % (auto) 0.1 %; Eosinophils # (auto) 0.05 K/uL (0-0.5); Eosinophils % (auto) 0.3 %; Hematocrit (blood only) 43.1 % (37-47); Hemoglobin 14.2 g/dL (12.0-16.0); Immature Granulocytes # (auto) 0.06 K/uL (0.00-0.02); Immature Granulocytes % (auto) 0.4 %; Lymphocytes # (auto) 1.41 K/uL (1.2-3.4); Lymphocytes % (auto) 8.8 %; Mean Corpuscular Hemoglobin 30.4 pg (25-34); Mean Corpuscular Hgb Conc 32.9 g/dL (32-36); Mean Corpuscular Volume 92.3 fL (80-100); Mean Platelet Volume 10.8 fL (7.4-10.4); Monocytes # (auto) 0.85 K/uL (0.11-0.59); Monocytes % (auto) 5.3 %; Neutrophils # (auto) 13.56 K/uL (1.4-6.5); Neutrophils % (auto) 85.1 %; Platelet Count 336 K/uL (130-400); RDW Coefficient of Variation 13.6 % (11.5-14.5); RDW Standard Deviation 45.9 fL (36.4-46.3); Red Blood Count 4.67 M/uL (4.2-5.4); White Blood Count 15.94 K/uL (4.8-10.8)
[2022-02-12 06:59] LABS: BUN Creatinine Ratio 32.8 (10-20); Calcium 8.4 mg/dl (8.5-10.1); Creatinine Clr Calc Pharmacy 89.8 ml/min; Est GFR (African American) 103.5 ml/min; Est GFR (Non-African American) 89.3 ml/min; Potassium 4.5 mmol/L (3.5-5.1)
[2022-02-12] MEDS: NINTEDANIB ESYLATE 150 MG CAPSULE PO SCH ×2 (09:03→20:13)
[2022-02-12] MEDS: METOPROLOL SUCC 50MG EXT REL TAB PO SCH ×2 (09:03→20:12)
[2022-02-12] MEDS: PANTOprazole 40 MG TAB PO SCH ×2 (09:03→20:13)
[2022-02-12] MEDS: MULTIVITAMIN TAB PO SCH (09:03)
[2022-02-12] MEDS: CYANOCOBALAMIN (B-12) 2,500 MCG TABLET SL SCH (09:03)
[2022-02-12] MEDS: CELECOXIB 100 MG CAP PO SCH ×2 (09:03→20:12)
[2022-02-12] MEDS: FLUoxetine HCL 20 MG CAP PO SCH (09:03)
[2022-02-12] MEDS: CHOLECALCIFEROL 1,000 UNITS 25 MCG TAB PO SCH (09:03)
[2022-02-12] MEDS: GABAPENTIN 300 MG CAP PO SCH (09:04)
[2022-02-12] MEDS: FERROUS SULFATE 325 MG TAB PO SCH (09:04)
[2022-02-12] MEDS: CALCIUM CARBONATE 1250MG TAB PO SCH (09:04)
--- NOTE | 2022-02-12 11:23 | Hospitalist Progress Note ---
Date of Service February 12, 2022 Assessment & Plan (1) IPF (idiopathic pulmonary fibrosis): Plan: 76 yo female with acute respiratory failure. has a hx of advanced IPF. CT scan showed Diffuse groundglass consolidation is seen throughout both lungs. Initially required high flow oxygen 55L. - Appreciate input from Pulmonary. - Continue home nintedanib - Continue steroids -> Reduce steroids to prednisone 40 mg PO daily with prolonged taper. - Procalcitonin was negative on 02/12; presently not on abx. - Monitor volume status; not on diuretics at this time. - As in subjective, patient's SpO2 was as low as 62% (good waveform & steady changes, so I believe it to truly be that value) with walking 8 feet. Not ready for discharge at this time. (2) Acute on chronic respiratory failure with hypoxemia: Plan: Secondary to exacerbation of IPF. - See above (3) Cough: Plan: Due to IPF. COVID/ BIOFIRE: negative. - Standing Robitussin -> Patient reports some improvement. (4) Abnormal CT scan of lung: Plan: Diffuse groundglass consolidation is seen throughout both lungs. This is nonspecific and could represent pulmonary edema versus an infectious/inflammatory pneumonitis. - As above (5) Hypertension: Plan: BP today is 160/80. - Continue home metoprolol (6) DVT prophylaxis: Plan: Lovenox 40 mg SQ daily Admission and Anticipated Discharge Date Admission Date: February 02, 2022 Subjective Working with PT when I entered the room. She was standing, and was able to walk about 4 feet to the door of the bathroom, then back to bed. Was clearly winded after doing this. SpO2 had been 91% on 5L NC while at rest. She did this exertion on 7L that had been turned up by the PT. After getting her back in bed, SpO2 was checked and was 70% with a transient dip as low as 62% with the patient reporting some shortness of breath and lightheadedness. O2 was turned up to 10L, and the patient's SpO2 returned to 95% over about 2 minutes. O2 was then turned back down to 5L NC, and the SpO2 settled back to around 91-92%. The patient reported her lightheadedness and shortness of breath resolved by this point. Reports no fevers/chills, chest pain, abdominal pain, nausea, or vomiting. Physical Exam Constitutional: WD/WN, vitals as above + acute distress Eyes: EOM intact bilaterally; no conjunctival abnormality ENMT: external ear and nose normal, oropharynx normal Neck: trachea midline, no thyromegaly normal visual inspection Respiratory: + respiratory distress (Transient with walking 8 feet) and + labored breathing Auscultation: + crackles Cardiovascular: RRR, no murmur, no edema Gastrointestinal (Abdomen): Inspection/Auscultation: abdomen normal to inspection; abdomen not distended Musculoskeletal: no cyanosis or clubbing, extremities motor strength 5/5 Skin: no rashes, warm and dry Neurologic: moves all extremities and awake Psychiatric: Orientation: alert, oriented to person and cooperative Results & Data Results & Data ([facility]) Vital Signs (Past 12 Hours) Vital Signs Temp Pulse Resp BP Pulse Ox 02/12/22 07:21 36.6 C 61 16 157/80 H 93 PG Care Time/CCT Total # of Minutes Spent Total Time Spent with Patient: Total time spent is greater than 50% in coordination of care (as documented) at patient's floor/unit and/or counseling patient: Coding Level of Care Code 37397 Subseq Hosp Care Lvl 3 Diagnoses IPF (idiopathic pulmonary fibrosis) J84.112 Acute on chronic respiratory failure with hypoxemia J96.[address] scan of lung R91.8 Cough R05 Hypertension I10 DVT prophylaxis Z29.9
[2022-02-12] MEDS: MONTELUKAST SODIUM 10 MG TABLET PO SCH (20:12)
[2022-02-12] MEDS: ENOXAPARIN INJ 40 MG/0.4 ML SYR SQ SCH (20:12)
[2022-02-13] MEDS: guaiFENesin/DEXTROM SYRUP 200MG/20MG 10ML UDC PO SCH ×5 (00:05→23:22)
[2022-02-13] MEDS: GABAPENTIN 300 MG CAP PO SCH (08:10)
[2022-02-13] MEDS: MULTIVITAMIN TAB PO SCH (08:10)
[2022-02-13] MEDS: METOPROLOL SUCC 50MG EXT REL TAB PO SCH ×2 (08:11→20:48)
[2022-02-13] MEDS: PANTOprazole 40 MG TAB PO SCH ×2 (08:11→20:48)
[2022-02-13] MEDS: FLUoxetine HCL 20 MG CAP PO SCH (08:11)
[2022-02-13] MEDS: CALCIUM CARBONATE 1250MG TAB PO SCH (08:11)
[2022-02-13] MEDS: CELECOXIB 100 MG CAP PO SCH ×2 (08:11→20:48)
[2022-02-13] MEDS: FERROUS SULFATE 325 MG TAB PO SCH (08:11)
[2022-02-13] MEDS: predniSONE 20 MG TAB PO SCH (08:11)
[2022-02-13] MEDS: NINTEDANIB ESYLATE 150 MG CAPSULE PO SCH ×2 (08:12→20:48)
[2022-02-13] MEDS: CHOLECALCIFEROL 1,000 UNITS 25 MCG TAB PO SCH (08:12)
--- NOTE | 2022-02-13 12:33 | Hospitalist Progress Note ---
Date of Service February 13, 2022 Assessment & Plan (1) IPF (idiopathic pulmonary fibrosis): Plan: 76 yo female with acute respiratory failure. has a hx of advanced IPF. CT scan showed Diffuse groundglass consolidation is seen throughout both lungs. Initially required high flow oxygen 55L. - Appreciate input from Pulmonary. - Continue home nintedanib - Continue steroids -> Reduce steroids to prednisone 40 mg PO daily with prolonged taper. - Procalcitonin was negative on 02/12; presently not on abx. - Monitor volume status; not on diuretics at this time. Appears euvolemic to even mildly contracted. - As in subjective, patient's SpO2 was as low as 62% with walking 8 feet on 02/12. Today, she is back at 5L NC at rest. Encouraged her to at least get in chair today. Her baseline prior to this recent decline was walking 2,000 steps a day and walking at least 100 ft without significant shortness of breath. (2) Acute on chronic respiratory failure with hypoxemia: Plan: Secondary to exacerbation of IPF. - See above (3) Cough: Plan: Due to IPF. COVID/ BIOFIRE: negative. - Standing Robitussin -> Patient reports some improvement in cough. (4) Abnormal CT scan of lung: Plan: Diffuse groundglass consolidation is seen throughout both lungs. This is nonspecific and could represent pulmonary edema versus an infectious/inflammatory pneumonitis. - As above (5) Hypertension: Plan: BP today is 125/80. - Continue home metoprolol (6) DVT prophylaxis: Plan: Lovenox 40 mg SQ daily Admission and Anticipated Discharge Date Admission Date: February 02, 2022 Subjective No issues this morning. No shortness of breath while at rest. Has not been up and out of bed yet, so I did encourage her to do so. Reports no fevers/chills, chest pain, abdominal pain, nausea, or vomiting. Physical Exam Constitutional: WD/WN, vitals as above Eyes: EOM intact bilaterally; no conjunctival abnormality ENMT: external ear and nose normal, oropharynx normal Neck: trachea midline, no thyromegaly normal visual inspection Respiratory: + labored breathing Auscultation: + crackles (Diffusely) Cardiovascular: RRR, no murmur, no edema Gastrointestinal (Abdomen): Inspection/Auscultation: abdomen normal to inspection; abdomen not distended Musculoskeletal: no cyanosis or clubbing, extremities motor strength 5/5 Skin: no rashes, warm and dry Neurologic: moves all extremities and awake Psychiatric: Orientation: alert, oriented to person and cooperative Results & Data Results & Data ([facility]) Vital Signs (Past 12 Hours) Vital Signs Temp Pulse Resp BP Pulse Ox 02/13/22 07:18 36.6 C 63 18 124/78 96 PG Care Time/CCT Total # of Minutes Spent Total Time Spent with Patient: Total time spent is greater than 50% in coordination of care (as documented) at patient's floor/unit and/or counseling patient: Coding Level of Care Code 18326 Subseq Hosp Care Lvl 2 Diagnoses IPF (idiopathic pulmonary fibrosis) J84.112 Acute on chronic respiratory failure with hypoxemia J96.[address] scan of lung R91.8 Hypertension I10 DVT prophylaxis Z29.9
[2022-02-13] MEDS: ENOXAPARIN INJ 40 MG/0.4 ML SYR SQ SCH (20:48)
[2022-02-13] MEDS: MONTELUKAST SODIUM 10 MG TABLET PO SCH (20:48)
[2022-02-14] MEDS: guaiFENesin/DEXTROM SYRUP 200MG/20MG 10ML UDC PO SCH ×4 (06:09→23:20)
[2022-02-14] MEDS: FLUoxetine HCL 20 MG CAP PO SCH (08:09)
[2022-02-14] MEDS: METOPROLOL SUCC 50MG EXT REL TAB PO SCH ×2 (08:09→20:06)
[2022-02-14] MEDS: GABAPENTIN 300 MG CAP PO SCH (08:09)
[2022-02-14] MEDS: MULTIVITAMIN TAB PO SCH (08:09)
[2022-02-14] MEDS: CHOLECALCIFEROL 1,000 UNITS 25 MCG TAB PO SCH (08:09)
[2022-02-14] MEDS: FERROUS SULFATE 325 MG TAB PO SCH (08:09)
[2022-02-14] MEDS: CELECOXIB 100 MG CAP PO SCH ×2 (08:10→20:06)
[2022-02-14] MEDS: predniSONE 20 MG TAB PO SCH (08:10)
[2022-02-14] MEDS: PANTOprazole 40 MG TAB PO SCH ×2 (08:10→20:07)
[2022-02-14] MEDS: NINTEDANIB ESYLATE 150 MG CAPSULE PO SCH ×2 (08:10→20:06)
[2022-02-14] MEDS: CALCIUM CARBONATE 1250MG TAB PO SCH (08:10)
--- NOTE | 2022-02-14 13:35 | Hospitalist Progress Note ---
Date of Service February 14, 2022 Assessment & Plan (1) IPF (idiopathic pulmonary fibrosis): Plan: 76 yo female with acute respiratory failure. has a hx of advanced IPF. CT scan showed Diffuse groundglass consolidation is seen throughout both lungs. Initially required high flow oxygen 55L. - Appreciate input from Pulmonary. - Continue home nintedanib - Continue steroids -> Reduce steroids to prednisone 40 mg PO daily with prolonged taper. * Reduce to prednisone 35 mg on 02/16 and down by 5 mg every 3 days. - Procalcitonin was negative on 02/12; presently not on abx. - Monitor volume status; not on diuretics at this time. Appears euvolemic to even mildly contracted. - Will repeat BNP and procal tomorrow to reassure us that no additional process is going on. - As in subjective, patient's SpO2 was as low as 62% with walking 8 feet on 02/12. Today, her SpO2 wavers between 88% and 94% while sitting in the chair at 7L NC. I turned her down to 5L NC and within a minute, her SpO2 dropped to 72%. NC returned to 7L with recovery to ~90% SpO2. (2) Acute on chronic respiratory failure with hypoxemia: Plan: Secondary to exacerbation of IPF. - See above (3) Cough: Plan: Due to IPF. COVID/ BIOFIRE: negative. - Standing Robitussin -> Patient reports some improvement in cough. (4) Abnormal CT scan of lung: Plan: Diffuse groundglass consolidation is seen throughout both lungs. This is nonspecific and could represent pulmonary edema versus an infectious/inflammatory pneumonitis. - As above (5) Hypertension: Plan: BP today is 150/80. - Continue home metoprolol (6) DVT prophylaxis: Plan: Lovenox 40 mg SQ daily Admission and Anticipated Discharge Date Admission Date: February 02, 2022 Subjective Doing well today. Feels she has more energy. Better appetite. Seen while she is sitting up in a chair and after lunch. Would like to stay up a bit longer. Physical Exam Constitutional: WD/WN, vitals as above Eyes: EOM intact bilaterally; no conjunctival abnormality ENMT: external ear and nose normal, oropharynx normal Neck: trachea midline, no thyromegaly normal visual inspection Respiratory: + labored breathing Auscultation: + crackles (Diffusely, but mostly in the bases) Cardiovascular: RRR, no murmur, no edema Gastrointestinal (Abdomen): Inspection/Auscultation: abdomen normal to inspection; abdomen not distended Musculoskeletal: no cyanosis or clubbing, extremities motor strength 5/5 Skin: no rashes, warm and dry Neurologic: moves all extremities and awake Psychiatric: Orientation: alert, oriented to person and cooperative Results & Data Results & Data ([facility]) Vital Signs (Past 12 Hours) Vital Signs Temp Pulse Resp BP Pulse Ox 02/14/22 07:26 36.5 C 60 16 147/79 H 95 PG Care Time/CCT Total # of Minutes Spent Total Time Spent with Patient: Total time spent is greater than 50% in coordination of care (as documented) at patient's floor/unit and/or counseling patient: Coding Level of Care Code 69645 Subseq Hosp Care Lvl 2 Diagnoses IPF (idiopathic pulmonary fibrosis) J84.112 Acute on chronic respiratory failure with hypoxemia J96.[address] scan of lung R91.8 Hypertension I10 DVT prophylaxis Z29.9
[2022-02-14] MEDS: ENOXAPARIN INJ 40 MG/0.4 ML SYR SQ SCH (20:05)
[2022-02-14] MEDS: MONTELUKAST SODIUM 10 MG TABLET PO SCH (20:06)
[2022-02-15] MEDS: guaiFENesin/DEXTROM SYRUP 200MG/20MG 10ML UDC PO SCH ×2 (05:31→11:28)
[2022-02-15 06:44] LABS: Hematocrit (blood only) 40.7 % (37-47); Hemoglobin 13.4 g/dL (12.0-16.0); Mean Corpuscular Hemoglobin 31.2 pg (25-34); Mean Corpuscular Hgb Conc 32.9 g/dL (32-36); Mean Corpuscular Volume 94.7 fL (80-100); Mean Platelet Volume 10.6 fL (7.4-10.4); Platelet Count 279 K/uL (130-400); RDW Coefficient of Variation 14.1 % (11.5-14.5); RDW Standard Deviation 48.2 fL (36.4-46.3); White Blood Count 19.04 K/uL (4.8-10.8)
[2022-02-15 07:05] LABS: Calcium 8.2 mg/dl (8.5-10.1); Creatinine Clr Calc Pharmacy 79.4 ml/min; Est GFR (African American) 99.4 ml/min; Est GFR (Non-African American) 85.8 ml/min; Magnesium 1.8 mg/dl (1.7-2.4); Potassium 3.5 mmol/L (3.5-5.1)
[2022-02-15] MEDS: PANTOprazole 40 MG TAB PO SCH (07:22)
[2022-02-15] MEDS: predniSONE 20 MG TAB PO SCH (07:22)
[2022-02-15] MEDS: METOPROLOL SUCC 50MG EXT REL TAB PO SCH (07:23)
[2022-02-15] MEDS: FERROUS SULFATE 325 MG TAB PO SCH (07:23)
[2022-02-15] MEDS: CELECOXIB 100 MG CAP PO SCH (07:23)
[2022-02-15] MEDS: MULTIVITAMIN TAB PO SCH (07:23)
[2022-02-15] MEDS: GABAPENTIN 300 MG CAP PO SCH (07:23)
[2022-02-15] MEDS: FLUoxetine HCL 20 MG CAP PO SCH (07:23)
[2022-02-15] MEDS: NINTEDANIB ESYLATE 150 MG CAPSULE PO SCH (07:24)
[2022-02-15] MEDS: CALCIUM CARBONATE 1250MG TAB PO SCH (07:24)
[2022-02-15] MEDS: CHOLECALCIFEROL 1,000 UNITS 25 MCG TAB PO SCH (07:24)
--- NOTE | 2022-02-15 08:55 | Hospitalist Progress Note ---
Date of Service February 15, 2022 Assessment & Plan (1) IPF (idiopathic pulmonary fibrosis): Plan: 76 yo female with acute respiratory failure. has a hx of advanced IPF. CT scan showed Diffuse groundglass consolidation is seen throughout both lungs. Initially required high flow oxygen 55L. - Appreciate input from Pulmonary. - Continue home nintedanib - Continue steroids -> Reduce steroids to prednisone 40 mg PO daily with prolonged taper. * Reduce to prednisone 35 mg on 02/16 and down by 5 mg every 3 days. - Procalcitonin was negative on 02/12; 02/15/22 presently not on abx. - Monitor volume status; not on diuretics at this time. Appears euvolemic to even mildly contracted. - Pt requires 7 L oxygen and with such is 88-92 but desats with exertion (2) Acute on chronic respiratory failure with hypoxemia: Plan: Secondary to exacerbation of IPF. - See above (3) Cough: Plan: Due to IPF. COVID/ BIOFIRE: negative. - Standing Robitussin -> Patient reports some improvement in cough. (4) Abnormal CT scan of lung: Plan: Diffuse groundglass consolidation is seen throughout both lungs. This is nonspecific and could represent pulmonary edema versus an infectious/inflammatory pneumonitis. - As above (5) Hypertension: Plan: BP today is 150/80. - Continue home metoprolol (6) DVT prophylaxis: Plan: Lovenox 40 mg SQ daily Admission and Anticipated Discharge Date Admission Date: February 02, 2022 Results & Data Results & Data ([facility]) Vital Signs (Past 12 Hours) Vital Signs Temp Pulse Resp BP Pulse Ox 02/15/22 07:17 97.7 F 69 18 161/75 H 94 02/14/22 22:34 97.7 F 65 18 117/68 94 PG Care Time/CCT Total # of Minutes Spent Total Time Spent with Patient: Total time spent is greater than 50% in coordination of care (as documented) at patient's floor/unit and/or counseling patient: Coding Diagnoses IPF (idiopathic pulmonary fibrosis) J84.112 Acute on chronic respiratory failure with hypoxemia J96.21 [address] scan of lung R91.8 Hypertension I10 DVT prophylaxis Z29.9
--- NOTE | 2022-02-15 15:31 | Discharge Summary ---
Date of Service February 15, 2022 Admission HPI Per Admitting Provider This is a 76-year-old female with interstitial lung disease. Follows up with Dr. Barr and [facility] pulmonary. Patient reports over the past 2 weeks she has been having cough with some sputum. She reports that since she developed this cough she has been running requiring oxygen at home about 4 L at rest. She states she feels fatigue when she ambulates. She noticed today now despite being on 4 L her O2 sats were low in the 70s which prompted her to come into the hospital. She states that over the past 2 days she has felt significantly worse. Patient denies any sick contacts. Patient denies any fever, chills, nausea, vomiting. Principal Diagnosis Acute on chronic respiratory failure with hypoxia Pulmonary fibrosisprogressive Discharge Exam The patient appeared stable but in a chronic declining state Vital signs as documented. Lungs are bilateral coarse rales are heard in all lung oneill Cardiac exam, Rhythm is regular.. Systolic ejection murmur Abdominal exam reveals normal bowel sounds, soft non tender, no masses Extremities are trace edematous and both pedal pulses are normal. Neurologic exam is alert and oriented, no focal loss of strength or sensation Skin is without bruises or rashes Psychologically is without concerns for anxiety or depression. Discharge Data Allergies Allergy/AdvReac Type Severity Reaction Status Date / Time amoxicillin Allergy Intermediate sneeze/coug Verified 02/02/22 13:04 h LISA Inhibitors AdvReac Intermediate sneeze and Verified 02/02/22 13:04 cough Consultations 02/02/22 15:44 ED Decision to Admit Stat 02/02/22 17:06 Consult Pulmonology Routine Ordered Studies 02/02/22 14:08 CT angio chest PE protocol Stat Hospital Course (1) Transition of care performed with sharing of clinical summary: Progression of underlying chronic lung disease. Therapy will be attempted longer glucocorticoid taper. Continue nintedanib. Patient is on a PPI to reduce acid reflux with lifestyle modification Patient has escalation of oxygen dependence Consideration of home health to consider discussing goals of care referral for chronic worsening of condition (2) IPF (idiopathic pulmonary fibrosis): 76 yo female with acute respiratory failure. has a hx of advanced IPF. CT scan showed Diffuse groundglass consolidation is seen throughout both lungs. Initially required high flow oxygen 55L. - Appreciated input from Pulmonary. - Continue home nintedanib - Continue steroids -> Reduce steroids to prednisone 40 mg PO daily with prolonged taper. * Reduce to prednisone 35 mg on 02/16 and down by 5 mg every 3 days. - Procalcitonin was negative on 02/12; 02/15/22 presently discharged on abx. - Appears euvolemic to even mildly contracted. - Pt requires 7 L oxygen and with such is 88-92 but desats with exertion patient understands this and wants to go home with supportive care of her understanding she will not be able to move about much. She is agreeable to home health and perhaps we can begin discussing goals of care with them (3) Acute on chronic respiratory failure with hypoxemia: Secondary to exacerbation of IPF. - See above (4) Cough: Due to IPF. COVID/ BIOFIRE: negative. -Patient may use [id number] Robitussin if needed to for cough (5) Abnormal CT scan of lung: Diffuse groundglass consolidation is seen throughout both lungs. This is nonspecific and could represent pulmonary edema versus an infectious/inflammat ory pneumonitis. - As above (6) Hypertension: BP today is 150/80. - Continue home metoprolol Total Time Total Time Spent Total Time Spent (In Minutes): It required greater than 30 minutes to prepare this patient for discharge Discharge Plan Discharge Items Patient Disposition: Home - Home Health Services Reason For Visit: ACUTE HYPOXIC RESPIRATORY Discharge Diagnosis: acute on chronic low oxygen respiratory distress Activity: Per Instructions section Activity Comment: please limit exertion Non-emergency contact: Primary Care Provider Call non-emergency contact if: your symptoms worsen and you have a fever Follow-up/Referrals: Kasia King DO [Primary Care Provider] - Diet: Regular Addtl Attending Provider Instructions: Events and worsening of the flareup of your chronic lung disease. This will take a long time to improve. Please limit your exertion during your time at home so that your oxygen level does not fall further. You may wish to discuss with your home health nurses strategies aimed at treating your symptoms and perhaps making you be able to stay at home for longer periods of time. Given the long slow tapering dose of prednisone to try to help reduce any inflammation that may be adding to your lung disease. Prednisone is always used with caution as it may predispose you to increase infection. If you notice fevers changing in your mucus or increasing it mucus amount please consider contacting your primary care provider to inform them of the symptoms. Pending Studies at Discharge: No Stand-Alone Forms: My [facility], Smoking Cessation Medications and DC Order Prescriptions: New prednisone 5 mg tablet 5 mg PO UD Qty: 90 RF: 0 (DME) Oxygen Home Liters Per Minute See Rx Instructions .ROUTE Qty: 7 RF: 0 Continued montelukast 10 mg tablet 10 mg PO QPM RF: 0 celecoxib [Celebrex] 100 mg capsule 100 mg PO BID RF: 0 multivitamin [Daily Multi-Vitamin] tablet 1 tab PO QAM RF: 0 ferrous sulfate 325 mg (65 mg iron) tablet 325 mg PO QAM Qty: 60 RF: 0 metoprolol succinate 50 mg Tablet Extended Release 24 Hr 50 mg PO BID RF: 0 cyanocobalamin (vitamin B-12) 2,500 mcg Tablet 2,500 mcg PO WK RF: 0 benzonatate [Tessalon Perles] 100 mg Capsule 100 mg PO BID PRN (Reason: Cough) RF: 0 calcium carbonate [Calcium 500] 500 mg calcium (1,250 mg) Tablet 500 mg PO DAILY RF: 0 pantoprazole 40 mg tablet,delayed release (DR/EC) 40 mg PO BID RF: 0 gabapentin 300 mg capsule 300 mg PO DAILY RF: 0 fluoxetine 20 mg capsule 20 mg PO DAILY RF: 0 cholecalciferol (vitamin D3) [Vitamin D3] 50 mcg (2,000 unit) Capsule 50 mcg PO DAILY RF: 0 Ofev 150 mg capsule 150 mg PO BID RF: 0 Discharge Orders: Discharge Order (Routine); Ordered 02/15/22 Ordered By: Prashant Luis/Other Patient Handouts: Pulmonary Fibrosis Admission Data Admit Date/Time: 02/02/22 16:45 Attending Provider: Prashant Hammer Admit Provider: Twan Soriano Primary Care Provider: Kasia King Other Providers: Britton Almazan ; Basim Stevens ; [facility] Coding Level of Care Code D/C DAY MANAGEMENT >30 MINS Diagnoses IPF (idiopathic pulmonary fibrosis) J84.112 Acute on chronic respiratory failure with hypoxemia J96.[address] scan of lung R91.8 Hypertension I10 Transition of care performed with sharing of clinical summary
== END 2022-02-15 16:27 | disposition home health service (06) | DRG 196 ==
LOC: ED 11:48 → 2S 16:45 → SUATTDRO 16:45 → 2S 19:35 → 3E 02-11 14:31

== ENCOUNTER 2022-02-18 11:44 | Inpatient (IN) ==
--- NOTE | 2022-02-18 12:21 | Emergency Department Note ---
Impression & Plan [facility]neum[facility]orax, [facility] NAME: CHRISTINE CARR AGE: 76 SEX: F ARRIVES VIA: Ambulance INFORMANT: Patient ED PROVIDER(S): Kylee Méndez DO CHIEF COMPLAINT: Shortness of breath PLAN: Disposition: Admit to the [facility] Condition: Guarded MEDICAL DECISION MAKING: This is a 76-year-old female patient who presents to the emergency department with hypoxia. The patient was discharged from the hospital just 3 days ago. She was having routine evaluation today by home health when they found her to be hypoxic with an O2 saturation of 72% on her 4 L of home oxygen. The patient was having some increasing shortness of breath after a coughing episode at home. She was sent to the emergency department for evaluation. Patient has a history of idiopathic pulmonary fibrosis. She was noted to have a small right-sided pn eumothorax on chest x-ray went for CT scan which confirmed this. There was no evidence of tension. Patient has significant subcutaneous emphysema. The patient was maintaining O2 saturations of greater than 90% on oxime mask and felt much more comfortable. Laboratory studies revealed a decreased white blood cell count from previous admission and an elevated BUN. [facility] and [facility] will [facility] for further management. Triage Nursing notes reviewed and agree with them. Additional history obtained from family member who accompanied her. Prior medical records reviewed from her recent inpatient stay Vital Signs: reviewed and remarkable for hypoxia upon triage Differential diagnosis: Pleural effusion, pneumonia, COVID-19, pneumothorax, tension pneumothorax, PE Diagnostics interpreted by me: ECG: Normal sinus rhythm at [address] segment elevation or signs of ischemia. There is no ectopy. Cardiac Monitoring: Normal sinus rhythm at a rate of 68 Laboratory studies: See below Imaging studies: As per radiology Chest x-ray: See radiology report CT scan of the chest: See radiology report HPI: 76/F arrives for evaluation of shortness of breath and hypoxia. The patient was recently discharged from the hospital and was having a routine visit from home health today when they found her to be hypoxic with O2 saturations in the 70s. The patient had a recent coughing fit as she describes it and was wearing her usual 4 L of home oxygen. The patient has a history of idiopathic pulmonary fibrosis. EMS was called and she was transported here on a nonrebreather mask with O2 saturations in the 80s. ROS: See above HPI for pertinent positives & negatives. A total of 10 systems reviewed and were otherwise negative. PAST MEDICAL HISTORY:See Below PAST SURGICAL HISTORY:See Below FAMILY HISTORY:See Below SOCIAL HISTORY:See Below HOME MEDICATIONS: See list ALLERGIES: See list VITALS:See Below PHYSICAL EXAMINATION: HEENT: Head - normocephalic and atraumatic Pupils are equal, round, and reactive to light. Extraocular eye muscles are intact, and sclera are anicteric. Nose - moist nasal mucosa without discharge. Mouth - moist buccal mucosa. Oropharynx is nonerythematous and there is no tonsillar exudate or edema noted. Neck: Supple; no JVD, nuchal rigidity, cervical lymphadenopathy. Heart: Regular rate and rhythm. There is a normal S1 and S2 with no murmurs, clicks, or gallops appreciated. Lungs: rhonchi in all lung oneill Abdomen: Soft, completely nontender, nondistended, with good bowel sounds. There are no palpable pulsatile masses or hepatosplenomegaly. There is no guarding, rigidity, or rebound noted. Extremities: No evidence of cyanosis, clubbing, or edema. There are easily palpable peripheral pulses. Skin: Pale, warm and dry with good turgor and no rashes. ED COURSE: Times/Reassessments: 1205 the patient was evaluated in room C5. The patient was noted to be hypoxic and was placed on an oxygen mask which kept her O2 saturations in the 90s. A complete history and physical was performed. An order was placed for continuous cardiac monitoring. The patient was in a normal sinus rhythm at a rate of 68. A twelve-lead EKG was obtained. A portable chest x-ray was obtained. This showed a small pneumothorax. The patient was sent for CT scan of the chest. The patient remained hemodynamically stable. I discussed the case with the [facility]ist and they will evaluate for further management. Kylee Méndez DO Past Med/Surg History Medical History Abnormal chest x-ray Chronic cough Chronic sinusitis DJD (degenerative joint disease) Globus sensation reason for scheduled EGD Hypertension Interstitial lung disease Nasal polyps On home oxygen therapy 2L N/C prn Sacroiliitis, not elsewhere classified Vitamin D deficiency, unspecified Surgical History H/O gastric bypass 2008 H/O sinus surgery Dr. Hamm, left frontal sinusotomy, right and left total ethmoidectomy, right and left sphenoidotomy, right and left maxillary sinus antrostomies. 09/2013 History of appendectomy History of bladder suspension procedure History of colonoscopy History of esophagogastroduodenoscopy (EGD) History of hysterectomy History of lung biopsy 01/2018 History of nasal polypectomy per pt x50 procedures History of tonsillectomy and adenoidectomy History of tooth extraction upper and lower partial History of wisdom tooth extraction Family History Other Heart disease No family history of adverse response to anesthesia Social History Smoking Status: Never smoker Second Hand Exposure: No; Hx Alcohol Use: Yes Alcohol type: beer, wine and hard liquor Hx Substance Use: No Preferred Language: Slovenian Communication Ability: Effective Osteopathic Medicine Teacher Required: No Beliefs That Will Affect Care: None Current Living Situation: Spouse Feels Safe at Home: Yes Assistive Devices: Denture - Upper, Denture - Lower, Glasses and Oxygen - at Night Allergies Allergies Allergy/AdvReac Type Severity Reaction Status Date / Time amoxicillin Allergy Intermediate sneeze/coug Verified 02/18/22 16:09 h LISA Inhibitors AdvReac Intermediate sneeze and Verified 02/18/22 16:09 cough Home Meds Home Medications Medication Instructions Recorded Confirmed multivitamin (Daily Multi-Vitamin) 1 tab PO QAM 03/26/19 02/18/22 montelukast 10 mg tablet 10 mg PO QPM 02/04/20 02/18/22 ferrous sulfate 325 mg (65 mg 325 mg PO QAM #60 tab 06/29/20 02/18/22 iron) tablet cyanocobalamin (vitamin B-12) 2,500 mcg PO WK 07/01/20 02/18/22 2,500 mcg tablet metoprolol succinate 50 mg 50 mg PO BID 07/01/20 02/18/22 tablet,extended release 24 hr celecoxib 100 mg capsule (Celebrex) 100 mg PO BID 10/14/21 02/18/22 benzonatate 100 mg capsule 100 mg PO BID PRN 02/02/22 02/18/22 calcium carbonate 500 mg calcium 500 mg PO DAILY 02/02/22 02/18/22 (1,250 mg) tablet cholecalciferol (vitamin D3) 50 50 mcg PO DAILY 02/02/22 02/18/22 mcg (2,000 unit) capsule (Vitamin D3) fluoxetine 20 mg capsule 20 mg PO DAILY 02/02/22 02/18/22 gabapentin 300 mg capsule 300 mg PO DAILY 02/02/22 02/18/22 nintedanib 150 mg capsule (Ofev) 150 mg PO BID 02/02/22 02/18/22 pantoprazole 40 mg tablet,delayed 40 mg PO BID 02/02/22 02/18/22 release Previous Rx's Medication Instructions Recorded Oxygen Home #7 l 02/15/22 prednisone 5 mg tablet 5 mg PO UD #90 tab 02/15/22 Results & Data (ED) Vital Signs Vital Signs - 24 hr 02/18/22 11:36 02/18/22 11:53 02/18/22 12:00 Temperature 36.3 C L Temperature Source Oral Pulse Rate 79 63 Pulse Rate [Apical] Pulse Rate from SpO2 Sensor 64 Pulse Rhythm Regular Pulse Strength Normal Respiratory Rate 28 H 17 Respiratory Effort / Characteristics Labored Non-Labored Spontaneous Respiratory Depth Normal Normal Respiratory Pattern Tachypnea Blood Pressure 149/90 H 149/107 H Blood Pressure [Left Arm] Blood Pressure Mean 109 121 Blood Pressure Mean [Left Arm] Blood Pressure Position Sitting Blood Pressure Position [Left Arm] Pulse Oximetry 72 L 72 L 93 Oxygen Delivery Method Oxymask Nasal Cannula Oxygen Flow Rate 4 4 Sepsis Recent Fever Within 48 Hours No Sepsis New/Unexplained Change in Mental Status No Sepsis Action Taken by Nursing No Action Required Oxygen Flow Rate - Titration 10 Pulse Oximetry Post Tiitration 94 02/18/22 12:30 02/18/22 12:36 02/18/22 13:00 Temperature Temperature Source Pulse Rate 64 65 60 Pulse Rate [Apical] 65 Pulse Rate from SpO2 Sensor 63 Pulse Rhythm Pulse Strength Respiratory Rate 19 18 17 Respiratory Effort / Characteristics Respiratory Depth Respiratory Pattern Blood Pressure 159/90 H 138/75 Blood Pressure [Left Arm] 159/90 H Blood Pressure Mean 113 96 Blood Pressure Mean [Left Arm] 113 Blood Pressure Position Blood Pressure Position [Left Arm] Lying Pulse Oximetry 93 92 Oxygen Delivery Method Oxymask Oxygen Flow Rate 10 Sepsis Recent Fever Within 48 Hours Sepsis New/Unexplained Change in Mental Status Sepsis Action Taken by Nursing Oxygen Flow Rate - Titration Pulse Oximetry Post Tiitration 02/18/22 13:43 02/18/22 14:01 02/18/22 14:30 Temperature Temperature Source Pulse Rate 66 61 61 Pulse Rate [Apical] Pulse Rate from SpO2 Sensor 66 60 61 Pulse Rhythm Pulse Strength Respiratory Rate 21 19 20 Respiratory Effort / Characteristics Respiratory Depth Respiratory Pattern Blood Pressure 135/69 150/84 H 128/73 Blood Pressure [Left Arm] Blood Pressure Mean 91 106 91 Blood Pressure Mean [Left Arm] Blood Pressure Position Blood Pressure Position [Left Arm] Pulse Oximetry 87 L 94 95 Oxygen Delivery Method Oxygen Flow Rate Sepsis Recent Fever Within 48 Hours Sepsis New/Unexplained Change in Mental Status Sepsis Action Taken by Nursing Oxygen Flow Rate - Titration Pulse Oximetry Post Tiitration 02/18/22 15:00 02/18/22 15:30 02/18/22 16:00 Temperature Temperature Source Pulse Rate 61 66 61 Pulse Rate [Apical] Pulse Rate from SpO2 Sensor 61 66 60 Pulse Rhythm Pulse Strength Respiratory Rate 18 19 19 Respiratory Effort / Characteristics Respiratory Depth Respiratory Pattern Blood Pressure 132/77 136/85 129/82 Blood Pressure [Left Arm] Blood Pressure Mean 95 102 97 Blood Pressure Mean [Left Arm] Blood Pressure Position Blood Pressure Position [Left Arm] Pulse Oximetry 94 96 96 Oxygen Delivery Method Oxygen Flow Rate Sepsis Recent Fever Within 48 Hours Sepsis New/Unexplained Change in Mental Status Sepsis Action Taken by Nursing Oxygen Flow Rate - Titration Pulse Oximetry Post Tiitration Laboratory Data Result diagrams: 02/19/22 05:07 02/19/22 05:07 Lab Results 02/18/22 02/18/22 02/18/22 Range/Units 12:33 12:33 12:33 WBC 17.28 H (4.8-10.8) K/uL RBC 4.29 (4.2-5.4) M/uL Hgb 13.3 (12.0-16.0) g/dL Hct 39.6 (37-47) % MCV 92.3 (80-100) fL MCH 31.0 (25-34) pg MCHC 33.6 (32-36) g/dL RDW Std Deviation 48.5 H (36.4-46.3) fL RDW Coeff of Jane 14.5 (11.5-14.5) % Plt Count 293 (130-400) K/uL MPV 10.7 H (7.4-10.4) fL Immature Gran % (Auto) 0.3 % Neut % (Auto) 92.8 % Lymph % (Auto) 3.7 % [place] % (Auto) 2.3 % Eos % (Auto) 0.8 % Baso % (Auto) 0.1 % Neut # (Auto) 16.04 H (1.4-6.5) K/uL Lymph # (Auto) 0.64 L (1.2-3.4) K/uL [place] # (Auto) 0.39 (0.11-0.59) K/uL Eos # (Auto) 0.14 (0-0.5) K/uL Baso # (Auto) 0.01 (0-0.2) K/uL Immature Gran # (Auto) 0.06 H (0.00-0.02) K/uL Sodium 133 L (136-145) mmol/L Potassium 4.3 (3.5-5.1) mmol/L Chloride 95 L (98-107) mmol/L Carbon Dioxide 32 (21-32) mmol/L Anion Gap 6 (3-11) BUN 34 H (6-23) mg/dl Creatinine 0.78 (0.6-1.2) mg/dl Est Cr Clr Drug Dosing 69.6 ml/min Est GFR ( Amer) 86.8 ml/min Est GFR (Non-Af Amer) 74.9 ml/min BUN/Creatinine Ratio 43.6 H (10-20) Glucose 147 H (70-99(Fasting)) mg/dl Calcium 8.9 (8.5-10.1) mg/dl Total Bilirubin 0.7 (0.2-1.0) mg/dl AST 24 (13-39) U/L ALT 30 (7-52) U/L Alkaline Phosphatase 86 (34-104) U/L Troponin I High Sens 11.0 (0-14) pg/ml Total Protein 6.4 (6.0-8.3) gm/dl Albumin 3.1 L (3.4-5.0) gm/dl Globulin 3.3 (2.5-4.0) gm/dl Albumin/Globulin Ratio 0.9 (0.9-2) Procalcitonin < 0.05 (0-0.5) ng/ml SARS-CoV-2 (PCR) (Negative) 02/18/22 Range/Units 14:15 WBC (4.8-10.8) K/uL RBC (4.2-5.4) M/uL Hgb (12.0-16.0) g/dL Hct (37-47) % MCV (80-100) fL MCH (25-34) pg MCHC (32-36) g/dL RDW Std Deviation (36.4-46.3) fL RDW Coeff of Jane (11.5-14.5) % Plt Count (130-400) K/uL MPV (7.4-10.4) fL Immature Gran % (Auto) % Neut % (Auto) % Lymph % (Auto) % [place] % (Auto) % Eos % (Auto) % Baso % (Auto) % Neut # (Auto) (1.4-6.5) K/uL Lymph # (Auto) (1.2-3.4) K/uL [place] # (Auto) (0.11-0.59) K/uL Eos # (Auto) (0-0.5) K/uL Baso # (Auto) (0-0.2) K/uL Immature Gran # (Auto) (0.00-0.02) K/uL Sodium (136-145) mmol/L Potassium (3.5-5.1) mmol/L Chloride (98-107) mmol/L Carbon Dioxide (21-32) mmol/L Anion Gap (3-11) BUN (6-23) mg/dl Creatinine (0.6-1.2) mg/dl Est Cr Clr Drug Dosing ml/min Est GFR ( Amer) ml/min Est GFR (Non-Af Amer) ml/min BUN/Creatinine Ratio (10-20) Glucose (70-99(Fasting)) mg/dl Calcium (8.5-10.1) mg/dl Total Bilirubin (0.2-1.0) mg/dl AST (13-39) U/L ALT (7-52) U/L Alkaline Phosphatase (34-104) U/L Troponin I High Sens (0-14) pg/ml Total Protein (6.0-8.3) gm/dl Albumin (3.4-5.0) gm/dl Globulin (2.5-4.0) gm/dl Albumin/Globulin Ratio (0.9-2) Procalcitonin (0-0.5) ng/ml SARS-CoV-2 (PCR) NEGATIVE (Negative) Administered Medications Fluoxetine HCl (Fluoxetine Hcl 20 Mg Cap) 20 mg PO DAILY MARTIN Stop: 03/21/22 08:59 Last Admin: 02/19/22 07:41 Dose: 20 mg Documented by: [id number] Gabapentin (Gabapentin 300 Mg Cap) 300 mg PO DAILY MARTIN Stop: 03/21/22 08:59 Last Admin: 02/19/22 07:41 Dose: 300 mg Documented by: [id number] Cefepime HCl 2,000 mg/ Syringe 20 mls @ 5 mls/min IV Q8H [facility]; Protocol Stop: 02/25/22 20:44 Last Admin: 02/19/22 06:05 Dose: 5 mls/min Documented by: [id number] Admin: 02/18/22 21:24 Dose: 5 mls/min Documented by: [id number] Metoprolol Succinate (Metoprolol Succ 50mg Ext Rel Tab) 50 mg PO BID MARTIN Stop: 03/20/22 20:59 Last Admin: 02/19/22 07:41 Dose: 50 mg Documented by: [id number] Admin: 02/18/22 20:18 Dose: 50 mg Documented by: [id number] Miscellaneous (Ofev- Order Awaiting Action) 1 ea N/A QS [facility] Stop: 03/21/22 00:00 Last Admin: 02/18/22 23:03 Dose: Not Given Documented by: [id number] Montelukast Sodium (Montelukast Sodium 10 Mg Tablet) 10 mg PO QPM MARTIN Stop: 03/20/22 20:59 Last Admin: 02/18/22 20:18 Dose: 10 mg Documented by: [id number] Pantoprazole Sodium (Pantoprazole 40 Mg Tab) 40 mg PO BID MARTIN Stop: 03/20/22 20:59 Last Admin: 02/19/22 07:41 Dose: 40 mg Documented by: [id number] Admin: 02/18/22 20:18 Dose: 40 mg Documented by: [id number] Imaging Data Radiologist's Impression: Chest X-Ray 02/18/22 12:15 XR chest 1V portable CLINICAL HISTORY: Dyspnea TECHNIQUE: Single frontal radiograph of the chest was obtained. Comparison: Comparison is made to chest radiograph 02/06/2022 FINDINGS: Interval development of extensive subcutaneous emphysema. The cardiomediastinal silhouette is normal. Evaluation is limited by overlying cutaneous emphysema. There is suggestion of bilateral airspace opacities. Evaluation is again limited, however there is suggestion of a right pneumothorax measuring up to 1 cm in maximum thickness. IMPRESSION: 1. Interval development of extensive subcutaneous emphysema. Evaluation of the lungs and pleura are limited, however there is suggestion of a small right pneumothorax. If clinical concern remains, CTA chest can be performed. 2. There is suggestion of bilateral airspace opacities which may represent atelectasis, pneumonia, and/or aspiration. ACT 112: Negative or not required by law. Electronically signed by: Alejandro Butt M.D. 02/18/2022 1:[address] 02/18/22 13:17 CT chest diagnostic wo con CLINICAL HISTORY: eval for pneumothorax TECHNIQUE: Multidetector row helical CT of the chest was performed. Coronal and sagittal reformations were obtained. Automated dose lowering techniques and/or adjustment according to patient size were utilized for this exam. CT DOSE: 233.21 mGy.cm Comparison: Comparison is made to chest 02/02/2022 FINDINGS: Lungs and pleura: There is a small right left pneumothorax. There appears to be no left pneumothorax, the appearance of extrapleural air is due to multiple dissecting layers of pleural/mediastinal soft tissues. Bilateral bronchiectasis and groundglass opacities are again seen, favoring the lower lobes. Honeycombing is noted at the lung bases. Heart and pericardium: Heart size is normal. No pericardial effusion. Vessels: Unremarkable. Mediastinum and terence: Pneumomediastinum is seen. Redemonstration of mediastinal lymphadenopathy with a right lower paratracheal node measuring 19 mm in short axis. Evaluation for hilar node is limited by noncontrast technique. Chest wall and lower neck: Extensive subcutaneous emphysema is seen, right greater than left, dissecting into the lower neck as well. Abdomen: Patient is status post gastric bypass surgery with a small to moderate hiatal hernia. There is calcification in the liver next to the gallbladder fossa. Bones: Degenerative changes in the thoracic spine. IMPRESSION: 1. Small right pneumothorax and extensive pneumomediastinum and subcutaneous emphysema. 2. Redemonstration of extensive fibrotic changes including honeycombing and bronchiectasis in the lower greater than upper lungs bilaterally, this is favored to represent idiopathic pulmonary fibrosis, possibly in a UIP pattern. 3. Superimposed infectious/plantar process cannot be excluded. Redemonstration of mediastinal and hilar lymphadenopathy, with limited evaluation due to pneumomediastinum and noncontrast technique. ACT 112: Negative or not required by law. Electronically signed by: Alejandro Butt M.D. 02/18/2022 2:04 PM Discharge Plan Visit Data Chief Complaint: Shortness of Breath/Dyspnea ED Provider: Kylee Méndez Discharge Problem: Pneumothorax, Hypoxia Patient Disposition: Admitted As Inpatient Discharge Instructions Interventions: ED Discharge Assessment Last Done: 02/18/22 17:21
[2022-02-18 12:55] LABS: Basophils # (auto) 0.01 K/uL (0-0.2); Basophils % (auto) 0.1 %; Eosinophils # (auto) 0.14 K/uL (0-0.5); Eosinophils % (auto) 0.8 %; Hematocrit (blood only) 39.6 % (37-47); Hemoglobin 13.3 g/dL (12.0-16.0); Immature Granulocytes # (auto) 0.06 K/uL (0.00-0.02); Immature Granulocytes % (auto) 0.3 %; Lymphocytes # (auto) 0.64 K/uL (1.2-3.4); Lymphocytes % (auto) 3.7 %; Mean Corpuscular Hgb Conc 33.6 g/dL (32-36); Mean Corpuscular Volume 92.3 fL (80-100); Mean Platelet Volume 10.7 fL (7.4-10.4); Monocytes # (auto) 0.39 K/uL (0.11-0.59); Monocytes % (auto) 2.3 %; Neutrophils # (auto) 16.04 K/uL (1.4-6.5); Neutrophils % (auto) 92.8 %; Platelet Count 293 K/uL (130-400); RDW Coefficient of Variation 14.5 % (11.5-14.5); RDW Standard Deviation 48.5 fL (36.4-46.3); Red Blood Count 4.29 M/uL (4.2-5.4); White Blood Count 17.28 K/uL (4.8-10.8)
--- NOTE | 2022-02-18 13:06 | XRay Report ---
XR chest 1V portable CLINICAL HISTORY: Dyspnea TECHNIQUE: Single frontal radiograph of the chest was obtained. Comparison: Comparison is made to chest radiograph 02/06/2022 FINDINGS: Interval development of extensive subcutaneous emphysema. The cardiomediastinal silhouette is normal. Evaluation is limited by overlying cutaneous emphysema. There is suggestion of bilateral airspace op acities. Evaluation is again limited, however there is suggestion of a right pneumothorax measuring u p to 1 cm in maximum thickness. IMPRESSION: 1. Interval development of extensive subcutaneous emphysema. Evaluation of the lungs and pleura are limited, however there is suggestion of a small right pneumothorax. If clinical concern remains, CTA chest can be performed. 2. There is suggestion of bilateral airspace opacities which may represent atelectasis, pneumonia, a nd/or aspiration. ACT 112: Negative or not required by law. Electronically signed by: Alejandro Butt M.D. 02/18/2022 1:04 PM
[2022-02-18 13:16] LABS: Albumin Globulin Ratio 0.9 (0.9-2); Albumin Level 3.1 gm/dl (3.4-5.0); BUN Creatinine Ratio 43.6 (10-20); Bilirubin,Total 0.7 mg/dl (0.2-1.0); Calcium 8.9 mg/dl (8.5-10.1); Creatinine Clr Calc Pharmacy 69.6 ml/min; Est GFR (African American) 86.8 ml/min; Est GFR (Non-African American) 74.9 ml/min; Globulin 3.3 gm/dl (2.5-4.0); Potassium 4.3 mmol/L (3.5-5.1); Total Protein 6.4 gm/dl (6.0-8.3)
--- NOTE | 2022-02-18 14:07 | CT Scan Report ---
CT chest diagnostic wo con CLINICAL HISTORY: eval for pneumothorax TECHNIQUE: Multidetector row helical CT of the chest was performed. Coronal and sagittal reformations were obtained. Automated dose lowering techniques and/or adjustment according to patient size were u tilized for this exam. CT DOSE: 233.21 mGy.cm Comparison: Comparison is made to chest 02/02/2022 FINDINGS: Lungs and pleura: There is a small right left pneumothorax. There appears to be no left pneumothorax, the appearance of extrapleural air is due to multiple dissecting layers of pleural/mediastinal soft tissues. Bilateral bronchiectasis and groundglass opacities are again seen, favoring the lower lobes. Honeycombing is noted at the lung bases. Heart and pericardium: Heart size is normal. No pericardial effusion. Vessels: Unremarkable. Mediastinum and terence: Pneumomediastinum is seen. Redemonstration of mediastinal lymphadenopathy with a right lower paratracheal node measuring 19 mm in short axis. Evaluation for hilar node is limited b y noncontrast technique. Chest wall and lower neck: Extensive subcutaneous emphysema is seen, right greater than left, dissect ing into the lower neck as well. Abdomen: Patient is status post gastric bypass surgery with a small to moderate hiatal hernia. There is calcification in the liver next to the gallbladder fossa. Bones: Degenerative changes in the thoracic spine. IMPRESSION: 1. Small right pneumothorax and extensive pneumomediastinum and subcutaneous emphysema. 2. Redemonstration of extensive fibrotic changes including honeycombing and bronchiectasis in the lo wer greater than upper lungs bilaterally, this is favored to represent idiopathic pulmonary fibrosis, possibly in a UIP pattern. 3. Superimposed infectious/plantar process cannot be excluded. Redemonstration of mediastinal and hi lar lymphadenopathy, with limited evaluation due to pneumomediastinum and noncontrast technique. ACT 112: Negative or not required by law. Electronically signed by: Alejandro Butt M.D. 02/18/2022 2:04 PM
--- NOTE | 2022-02-18 17:04 | History & Physical Report ---
Date of Service February 18, 2022 Assessment & Plan (1) Pneumothorax: Plan: Small right PTX with large amount of subcutaneous emphysema. Patient actually quite comfortable on 10L NC. Care discussed with [facility] pulmonology at patient's request. Dr. Wilkins did not feel transfer was warranted and agreed with conservative management at this time. - Admit to ICU -> Discussed with ICU physician who is comfort admitting to ICU for monitoring - Non-rebreather to aid resorption - Daily CXRs - Treat cough PRN (2) IPF (idiopathic pulmonary fibrosis): Plan: Advanced. Follows with Dr. Gege Currie at [facility] and Sebastien Barr at [facility]. - Continue on steroid taper -> Prednisone 30 mg PO daily x 3 days, then 25 mg x 3 days, etc. - Do NOT feel she has new bacterial process or ILD flare at this time, so will defer abx or increasing steroids. - Continue home Ofev, montelukast (3) Hypertension: Plan: BP in the ER was 160/70. - Continue home metoprolol (4) DVT prophylaxis: Plan: SCDs - Defer heparin for now in case there is need for chest tube in next 1-2 days. History of Present Illness Primary Care Provider: Kasia King, 76yo F w/ hx of ILD who presents with right-sided PTX. She was recently discharged home from the hospital after having an extended stay due to ILD flare and was discharged home on an extended steroid taper. She reports she was doing well overall and reports that her shortness of breath was gradually increasing. However, this morning, she had a prolonged coughing fit and had a desaturation event. The home health aide that was there was concerned enough that she called 911 and was brought to the ER. The reports that her SpO2 was in the 60s. Her baseline home 2L was increased to 4L which brought her up to the 80% range, but then it would dip back down into the 70% range. The patient notes she felt tired and weak while this was happening, but otherwise does not report any particular symptoms. Otherwise, she is in her usual state of health and denies BUITRAGO, vision changes, chest pain, abdominal pain, n/v. Allergies Allergy/AdvReac Type Severity Reaction Status Date / Time amoxicillin Allergy Intermediate sneeze/coug Verified 02/18/22 16:09 h LISA Inhibitors AdvReac Intermediate sneeze and Verified 02/18/22 16:09 cough Home Medications Medication Instructions Recorded Confirmed Type multivitamin (Daily Multi-Vitamin) 1 tab PO QAM 03/26/19 02/18/22 History montelukast 10 mg tablet 10 mg PO QPM 02/04/20 02/18/22 History ferrous sulfate 325 mg (65 mg 325 mg PO QAM #60 tab 06/29/20 02/18/22 History iron) tablet cyanocobalamin (vitamin B-12) 2,500 mcg PO WK 07/01/20 02/18/22 History 2,500 mcg tablet metoprolol succinate 50 mg 50 mg PO BID 07/01/20 02/18/22 History tablet,extended release 24 hr celecoxib 100 mg capsule (Celebrex) 100 mg PO BID 10/14/21 02/18/22 History benzonatate 100 mg capsule 100 mg PO BID PRN 02/02/22 02/18/22 History calcium carbonate 500 mg calcium 500 mg PO DAILY 02/02/22 02/18/22 History (1,250 mg) tablet cholecalciferol (vitamin D3) 50 50 mcg PO DAILY 02/02/22 02/18/22 History mcg (2,000 unit) capsule (Vitamin D3) fluoxetine 20 mg capsule 20 mg PO DAILY 02/02/22 02/18/22 History gabapentin 300 mg capsule 300 mg PO DAILY 02/02/22 02/18/22 History nintedanib 150 mg capsule (Ofev) 150 mg PO BID 02/02/22 02/18/22 History pantoprazole 40 mg tablet,delayed 40 mg PO BID 02/02/22 02/18/22 History release Oxygen Home #7 l 02/15/22 02/18/22 Rx prednisone 5 mg tablet 5 mg PO UD #90 tab 02/15/22 02/18/22 Rx Past Med/Surg History Medical History Abnormal chest x-ray Chronic cough Chronic sinusitis DJD (degenerative joint disease) Globus sensation reason for scheduled EGD Hypertension Interstitial lung disease Nasal polyps On home oxygen therapy 2L N/C prn Sacroiliitis, not elsewhere classified Vitamin D deficiency, unspecified Surgical History H/O gastric bypass 2008 H/O sinus surgery Dr. Hamm, left frontal sinusotomy, right and left total ethmoidectomy, right and left sphenoidotomy, right and left maxillary sinus antrostomies. 09/2013 History of appendectomy History of bladder suspension procedure History of colonoscopy History of esophagogastroduodenoscopy (EGD) History of hysterectomy History of lung biopsy 01/2018 History of nasal polypectomy per pt x50 procedures History of tonsillectomy and adenoidectomy History of tooth extraction upper and lower partial History of wisdom tooth extraction Family History Other Heart disease No family history of adverse response to anesthesia Social History Smoking Status: Never smoker Second Hand Exposure: No; Hx Alcohol Use: Yes Alcohol type: wine Hx Substance Use: No Preferred Language: Latvian Communication Ability: Effective Manager Metrology Required: No Beliefs That Will Affect Care: None Current Living Situation: Spouse Feels Safe at Home: Yes Assistive Devices: Oxygen - Continuous Review of Systems Review of Systems: All systems reviewed & are unremarkable except as noted in HPI & below Physical Exam Constitutional: WD/WN, vitals as above Eyes: EOM intact bilaterally; no conjunctival abnormality ENMT: external ear and nose normal, oropharynx normal Neck: trachea midline, no thyromegaly normal visual inspection Respiratory: normal respiratory effort, lungs clear to auscultation no respiratory distress Cardiovascular: RRR, no murmur, no edema Chest (Breasts): Chest: + abnormal inspection of chest (Bleb in right upper neck) Gastrointestinal (Abdomen): Inspection/Auscultation: abdomen normal to inspection; abdomen not distended Musculoskeletal: no cyanosis or clubbing, extremities motor strength 5/5 Skin: no rashes, warm and dry Neurologic: moves all extremities and awake Psychiatric: Orientation: alert, oriented to person and cooperative Results & Data Results & [facility] ([facility]) Vital Signs (Past 12 Hours) Vital Signs Temp Pulse Pulse Resp BP BP Pulse Ox 02/18/22 14:30 61 20 128/73 95 02/18/22 14:01 61 19 150/84 H 94 02/18/22 13:43 66 21 135/69 87 L 02/18/22 13:00 60 17 138/75 02/18/22 12:36 65 65 18 159/90 H 92 02/18/22 12:30 64 19 159/90 H 93 02/18/22 12:00 63 17 149/107 H 93 02/18/22 11:53 36.3 C L 79 28 H 149/90 H 72 L 02/18/22 11:36 72 L Code Status & VTE Plan VTE Prophylaxis Plan VTE Prophylaxis will be ordered: Yes PG Care Time/CCT Total # of Minutes Spent Total Time Spent with Patient: Total time spent is greater than 50% in coordination of care (as documented) at patient's floor/unit and/or counseling patient: Coding Level of Care Code 11416 Initial Inpt Care Lvl 3 Diagnoses Pneumothorax J93.9 IPF (idiopathic pulmonary fibrosis) J84.112 Hypertension I10 DVT prophylaxis Z29.9
[2022-02-18] MEDS ORDERED: BENZONATATE 100 MG CAPSULE PO PRN (17:39)
[2022-02-18] MEDS ORDERED: ONDANSETRON INJ 2 MG/ML 2 ML VIAL IV PRN (17:39)
[2022-02-18] MEDS ORDERED: ACETAMINOPHEN 325 MG TAB PO PRN (17:39)
--- NOTE | 2022-02-18 18:20 | XRay Report ---
XR chest 1V portable CLINICAL HISTORY: Pneuomothorax TECHNIQUE: Single frontal radiograph of the chest was obtained. Comparison: Comparison is made to chest radiograph 02/18/[address] chest 02/18/2022 FINDINGS: No lines and tubes are seen. The cardiomediastinal silhouette is stable. Pneumomediastinum is again n oted. Interstitial opacities are seen in the bilateral lungs. Superimposed densities are compatible w ith groundglass seen on prior chest CT. Evaluation of the pleura is limited by subcutaneous emphysema . There is suggestion of a right pneumothorax which is approximately stable in size at 10 cm in thick ness. IMPRESSION: 1. Limited evaluation with suggestion of approximately stable right pneumothorax measuring approxima tely 10 cm in thickness. 2. Redemonstration of pneumomediastinum and some heterogeneous emphysema. ACT 112: Negative or not required by law. Electronically signed by: Alejandro Butt M.D. 02/18/2022 6:19 PM
--- NOTE | 2022-02-18 19:34 | Critical Care Consultation ---
Date of Consultation February 18, 2022 Assessment & Plan (1) Acute on chronic respiratory failure with hypoxemia: Impression: 76-year-old female with history of ILD presents to the ICU with acute hypoxic respiratory failure and pneumothorax/pneumomediastinum Neuro - [facility] ICU: Negative Continue Prozac Cardiac - Currently hemodynamically stable. Cardiomediastinal silhouette is stable on chest x-ray. Continue frequent hemodynamic monitoring, continuous telemetry in ICU HTNcontinue MTP History of pulmonary hypertension secondary to ILD Respiratory - Acute on chronic hypoxic respiratory failurepatient on 2 L nasal cannula baseline secondary to ILD. Presented to ED with shortness of breath and increased oxygen requirements at home. -CT chest with small right pneumothorax and extensive pneumomediastinum and subcutaneous emphysema, extrapleural air due to multiple dissecting layers of pleural/mediastinal soft tissue. Bilateral bronchiectasis and groundglass opacities with honeycombing in the lower lobes bilaterally. -Chest x-ray with approximately 1 cm right pneumothorax which was stable on second image approximately 5 hours after. No indication for chest tube at this time -Avoid positive pressure if able (i.e. BiPAP) -Continue with 100% nonrebreather -Continue prednisone taper, Ofev, Singulair -ABG pending -Continuous monitoring pulse ox -Cannot rule out an underlying infectious process at this time. Broad- spectrum antibiotics. See ID below -Repeat chest x-ray in a.m. -Pulmonology consult, follow-up recommendations -Monitor in ICU GI - Regular diet RENAL/LYTES - Creatinine stable, no electrolyte abnormalities at this time. Monitor routine BMPs - Strict I's and O's ENDO - No history of diabetes or thyroid disease HEME - H&H stable, monitor routine CBCs ID - Pneumonia?Cannot rule out pulmonary infectious process at this time, -Leukocytosis may be due to steroids? Currently afebrile, Pro-Vinay pending -Nasal MRSA negative. COVID-19 negative -Continue with cefepime for now LINES/IV ACCESS - Peripheral IVs DVT PROPHYLAXIS - SCDs CODE STATUS: DNR/DNI Thank you for allowing us to participate in the care of this patient. Please refer to my attending physician's documentation for any further recommendations. (2) Pneumothorax: (3) DVT prophylaxis: (4) Pulmonary hypertension: (5) Hypertension: (6) Cough: (7) Abnormal CT scan of lung: (8) IPF (idiopathic pulmonary fibrosis): (9) DJD (degenerative joint disease): History of Present Illness Attending Physician: Basim Stevens MD History of Present Illness Patient 76-year-old female with past medical history significant for HTN, pulmonary hypertension, ILD with biopsy in 2018 consistent with UIP and recent hospitalization for ILD flare, discharged with steroid taper. Patient reports that she has had a productive cough for the past 2 weeks. She denies any sore throat or fevers or congestion. She denies being around anyone with illness. She presented to the ED and was found to have right pneumothorax measuring approximately [address] chest showed small right pneumothorax and extensive pneumomediastinum and subcutaneous emphysema due to multiple dissecting layers of pleural/mediastinal soft tissue, redemonstration of fibrotic changes. Repeat chest x-ray showed stable right pneumothorax. Patient had been placed on 100% nonrebreather. She is now being admitted to the ICU. On arrival to the ICU the patient is alert and oriented and appears comfortable without labored breathing. She is mildly tachypneic. She denies any headache, syncope, dizziness, chest pain or palpitations, abdominal pain, nausea vomiting or diarrhea, recent illness. No indication for chest tube at this time. Will monitor and medically manage in ICU for now. Allergies Allergy/AdvReac Type Severity Reaction Status Date / Time amoxicillin Allergy Intermediate sneeze/coug Verified 02/18/22 16:09 h LISA Inhibitors AdvReac Intermediate sneeze and Verified 02/18/22 16:09 cough Home Medications Medication Instructions Recorded Confirmed Type multivitamin (Daily Multi-Vitamin) 1 tab PO QAM 03/26/19 02/18/22 History montelukast 10 mg tablet 10 mg PO QPM 02/04/20 02/18/22 History ferrous sulfate 325 mg (65 mg 325 mg PO QAM #60 tab 06/29/20 02/18/22 History iron) tablet cyanocobalamin (vitamin B-12) 2,500 mcg PO WK 07/01/20 02/18/22 History 2,500 mcg tablet metoprolol succinate 50 mg 50 mg PO BID 07/01/20 02/18/22 History tablet,extended release 24 hr celecoxib 100 mg capsule (Celebrex) 100 mg PO BID 10/14/21 02/18/22 History benzonatate 100 mg capsule 100 mg PO BID PRN 02/02/22 02/18/22 History calcium carbonate 500 mg calcium 500 mg PO DAILY 02/02/22 02/18/22 History (1,250 mg) tablet cholecalciferol (vitamin D3) 50 50 mcg PO DAILY 02/02/22 02/18/22 History mcg (2,000 unit) capsule (Vitamin D3) fluoxetine 20 mg capsule 20 mg PO DAILY 02/02/22 02/18/22 History gabapentin 300 mg capsule 300 mg PO DAILY 02/02/22 02/18/22 History nintedanib 150 mg capsule (Ofev) 150 mg PO BID 02/02/22 02/18/22 History pantoprazole 40 mg tablet,delayed 40 mg PO BID 02/02/22 02/18/22 History release Oxygen Home #7 l 02/15/22 02/18/22 Rx prednisone 5 mg tablet 5 mg PO UD #90 tab 02/15/22 02/18/22 Rx Patient History Medical History Abnormal chest x-ray Chronic cough Chronic sinusitis DJD (degenerative joint disease) Globus sensation reason for scheduled EGD Hypertension Interstitial lung disease Nasal polyps On home oxygen therapy 2L N/C prn Sacroiliitis, not elsewhere classified Vitamin D deficiency, unspecified Surgical History H/O gastric bypass 2008 H/O sinus surgery Dr. Hamm, left frontal sinusotomy, right and left total ethmoidectomy, right and left sphenoidotomy, right and left maxillary sinus antrostomies. 09/2013 History of appendectomy History of bladder suspension procedure History of colonoscopy History of esophagogastroduodenoscopy (EGD) History of hysterectomy History of lung biopsy 01/2018 History of nasal polypectomy per pt x50 procedures History of tonsillectomy and adenoidectomy History of tooth extraction upper and lower partial History of wisdom tooth extraction Family History Other Heart disease No family history of adverse response to anesthesia Social History Smoking Status: Never smoker Second Hand Exposure: No; Hx Alcohol Use: Yes Alcohol type: beer, wine and hard liquor Hx Substance Use: No Preferred Language: Frisian Communication Ability: Effective [employer] Manager Required: No Beliefs That Will Affect Care: None Current Living Situation: Spouse Feels Safe at Home: Yes Assistive Devices: Denture - Upper, Denture - Lower, Glasses and Oxygen - at Night Review of Systems Review of Systems: All systems reviewed & are unremarkable except as noted in HPI & below Physical Exam Constitutional: WD/WN, vitals as above Eyes: PERRL, conjunctivae normal, anicteric sclerae ENMT: external ear and nose normal, oropharynx normal Neck: trachea midline, no thyromegaly Respiratory: + cough, + tachypneic and symmetric chest movement; no respiratory distress, no labored breathing and does not use accessory muscles Auscultation: + rhonchi (Bilateral); no wheezes Cardiovascular: RRR, no murmur, no edema Heart Sounds: normal S1 and normal S2 Extremities: normal capillary refill; no edema Gastrointestinal (Abdomen): normal bowel sounds, soft, nontender, no hepatosplenomegaly Musculoskeletal: no cyanosis or clubbing, extremities motor strength 5/5 Skin: no rashes, warm and dry Neurologic: PERRL, EOMI, accommodation nl, no face palsy, no dysarthria Psychiatric: A+Ox3, euthymic affect Results & Data Results & Data ([facility]) Vital Signs (Past 12 Hours) Vital Signs Temp Pulse Pulse Resp BP BP BP 02/18/22 18:01 62 19 140/110 H 02/18/22 18:00 59 L 21 02/18/22 17:35 36.7 C 68 22 164/103 H 02/18/22 17:34 63 02/18/22 17:33 68 20 164/103 H 02/18/22 17:32 62 19 02/18/22 17:01 63 20 157/71 H 02/18/22 16:00 61 19 129/82 02/18/22 15:30 66 19 136/85 02/18/22 15:00 61 18 132/77 02/18/22 14:30 61 20 128/73 02/18/22 14:01 61 19 150/84 H 02/18/22 13:43 66 21 135/69 02/18/22 13:00 60 17 138/75 02/18/22 12:36 65 65 18 159/90 H 02/18/22 12:30 64 19 159/90 H 02/18/22 12:00 63 17 149/107 H 02/18/22 11:53 36.3 C L 79 28 H 149/90 H 02/18/22 11:36 Pulse Ox 02/18/22 18:01 93 02/18/22 18:00 91 02/18/22 17:35 90 02/18/22 17:34 02/18/22 17:33 93 02/18/22 17:32 02/18/22 17:01 93 02/18/22 16:00 96 02/18/22 15:30 96 02/18/22 15:00 94 02/18/22 14:30 95 02/18/22 14:01 94 02/18/22 13:43 87 L 02/18/22 13:00 02/18/22 12:36 92 02/18/22 12:30 93 02/18/22 12:00 93 02/18/22 11:53 72 L 02/18/22 11:36 72 L Coding Level of Care Code 99823 Inpt Consult Level 4 Diagnoses Pneumothorax J93.9 DVT prophylaxis Z29.9 Pulmonary hypertension I27.20 Acute on chronic respiratory failure with hypoxemia J96.21 Hypertension I10 Cough R[address] scan of lung R91.8 IPF (idiopathic pulmonary fibrosis) J84.112 DJD (degenerative joint disease) M19.90
[2022-02-18] MEDS: METOPROLOL SUCC 50MG EXT REL TAB PO SCH (20:18)
[2022-02-18] MEDS: PANTOprazole 40 MG TAB PO SCH (20:18)
[2022-02-18] MEDS: MONTELUKAST SODIUM 10 MG TABLET PO SCH (20:18)
[2022-02-18 20:54] LABS: iSTAT Allen Test Pass; iSTAT Arterial Blood Gas HCO3 29 meg/L (19-24); iSTAT Arterial Blood Gas pCO2 49 mmHg (35-46); iSTAT Arterial Blood Gas pH 7.39 (7.35-7.45); iSTAT Arterial Blood Gas pO2 93 mmHg (80-95); iSTAT Carbon Dioxide 31 mmol/L (24-31); iSTAT FiO2 100 %; iSTAT Site R Radial
[2022-02-18] MEDS: CEFEPIME 2,000 MG in SYRINGE 0 ML IV SCH (21:24)
[2022-02-19 05:48] LABS: Hematocrit (blood only) 38.4 % (37-47); Hemoglobin 12.5 g/dL (12.0-16.0); Mean Corpuscular Hemoglobin 30.3 pg (25-34); Mean Corpuscular Hgb Conc 32.6 g/dL (32-36); Mean Corpuscular Volume 93.2 fL (80-100); Mean Platelet Volume 10.5 fL (7.4-10.4); Platelet Count 265 K/uL (130-400); RDW Coefficient of Variation 14.6 % (11.5-14.5); RDW Standard Deviation 49.1 fL (36.4-46.3); Red Blood Count 4.12 M/uL (4.2-5.4); White Blood Count 18.65 K/uL (4.8-10.8)
[2022-02-19 05:58] LABS: Calcium 8.7 mg/dl (8.5-10.1); Creatinine Clr Calc Pharmacy 121.2 ml/min; Est GFR (African American) 115.3 ml/min; Est GFR (Non-African American) 99.4 ml/min; Magnesium 1.8 mg/dl (1.7-2.4); Potassium 4.2 mmol/L (3.5-5.1)
[2022-02-19] MEDS: CEFEPIME 2,000 MG in SYRINGE 0 ML IV SCH ×3 (06:05→21:25)
--- NOTE | 2022-02-19 07:25 | Hospitalist Progress Note ---
Date of Service February 19, 2022 Assessment & Plan (1) Pneumothorax: Plan: Small right PTX with large amount of subcutaneous emphysema. Patient actually quite comfortable on 10L NC. Care discussed with [facility] pulmonology at patient's request. Dr. Wilkins did not feel transfer was warranted and agreed with conservative management at this time. -Patient remains in ICU, discussed with ICU physician and pulmonary on-call we will attempt to add atypical coverage and steroids to try to reduce the inflammatory changes seen in the patient's chest x-ray continues on Ofev - Non-rebreather to aid resorption -Monitor chest x-ray changes - Treat cough PRN No emergent need for chest tube at this time patient will be continued on nonrebreather but not positive pressure ventilation as concern not to worsen pneumothoraces (2) IPF (idiopathic pulmonary fibrosis): Plan: Acute on chronic respiratory failure with hypoxemia advanced. Follows with Dr. Gege Currie at [facility] and Sebastien Barr at [facility]. -Comparison x-ray to 02/06 looks worse currently recommendations for higher steroid ministration we will use IV Solu-Medrol to 50 every 6 -Negative procalcitonin Will expand antibiotic coverage to include atypical coverage by using azithromycin - Continue home Ofev, montelukast (3) Hypertension: Plan: BP in the ER was 160/70. - Continue home metoprolol (4) DVT prophylaxis: Plan: SCDs at this time in case procedures are warranted if she stabilizes will init iate subcu heparin. Admission and Anticipated Discharge Date Admission Date: February 18, 2022 Subjective Patient had an abrupt worsening of her breathing as an outpatient presents with pneumostatic mediastinum subcutaneous emphysema bilateral apical small pneumothoraces but progressive increased interstitial markings. Patient has a nonproductive cough. Review of Systems Review of Systems: Mild distress and fatigue no headache, no visual changes no speech or swallowing issues no chest pain, pressure or palpitations Significant dyspnea on exertion nonproductive coughing no abdominal pain, nausea or vomiting, diarrhea or constipation no dysuria, hematuria or frequency no focal joint pain or swelling no back pain, CVA tenderness or radicular pain Crepitance felt in the anterior chest mostly on the right no focal signs of weakness or numbness or altered sensation no complaints of anxiety or depression.. Physical Exam Physical Exam: The patient appeared chronic respiratory distress but stable Vital signs as documented. Head exam is normocephalic atraumatic Neck is with JVD, thyromegaly, or carotid bruits, crepitance or felt in the right anterior chest Lungs are bilateral rales heard in all lung oneill Cardiac exam, Rhythm is regular.. No murmurs, rubs or gallops. Abdominal exam reveals normal bowel sounds, soft non tender, no masses Extremities are nonedematous and both pedal pulses are present Neurologic exam is alert and oriented, no focal loss of strength or sensation Skin is without bruises or rashes Psychologically is without concerns for anxiety or depression.. Results & Data Results & Data ([facility]) Vital Signs (Past 12 Hours) Vital Signs Pulse Resp BP Pulse Ox 02/19/22 06:00 65 21 140/82 93 02/19/22 05:00 63 18 137/86 91 02/19/22 04:00 62 19 133/84 91 02/19/22 03:00 61 19 135/72 93 02/19/22 02:00 61 19 142/69 H 93 02/19/22 01:00 61 17 123/76 93 02/19/22 00:00 59 L 15 135/78 95 02/18/22 23:00 62 18 124/70 93 02/18/22 22:00 135/67 02/18/22 21:23 68 22 134/79 97 PG Care Time/CCT Total # of Minutes Spent Total Time Spent with Patient: Total time spent is greater than 50% in coordination of care (as documented) at patient's floor/unit and/or counseling patient: Coding Level of Care Code 76267 Subseq Hosp Care Lvl 3 Diagnoses Pneumothorax J93.9 IPF (idiopathic pulmonary fibrosis) J84.112 Hypertension I10 DVT prophylaxis Z29.9
--- NOTE | 2022-02-19 07:30 | XRay Report ---
XR chest 1V portable CLINICAL HISTORY: PTX with ILD COMPARISON STUDY: Chest CT and chest radiograph February 18, 2022. FINDINGS: Small right pneumothorax is similar to prior exam. There may also be a small left apical pn eumothorax. Evaluation is difficult given extensive pneumomediastinum and subcutaneous gas within the chest wall and neck which was shown on prior exam. Lung aeration has significantly decreased since p rior exam with interval increase in bilateral airspace opacities. Evidence for interstitial lung dise ase is better depicted on prior chest CT. A hiatal hernia is present. IMPRESSION: 1. Significant increase in bilateral airspace opacities. 2. No change in a small right pneumothorax. Possible small left apical pneumothorax. 3. Persistent extensive pneumomediastinum and subcutaneous gas within the chest wall and neck. ACT 112: Negative or not required by law. Electronically signed by: Ulises Can M.D. 02/19/2022 7:28 AM
[2022-02-19] MEDS: METOPROLOL SUCC 50MG EXT REL TAB PO SCH ×2 (07:41→20:13)
[2022-02-19] MEDS: PANTOprazole 40 MG TAB PO SCH ×2 (07:41→20:12)
[2022-02-19] MEDS: GABAPENTIN 300 MG CAP PO SCH (07:41)
[2022-02-19] MEDS: FLUoxetine HCL 20 MG CAP PO SCH (07:41)
[2022-02-19] MEDS ORDERED: predniSONE 5 MG TAB PO SCH (09:00)
[2022-02-19] MEDS ORDERED: AZITHROMYCIN 500 MG in DEXTROSE 5% 250 ML IV STA (09:41)
[2022-02-19] MEDS ORDERED: methylPREDNISolone 250 MG in SYRINGE 0 ML IV SCH (09:45)
[2022-02-19] MEDS: methylPREDNISolone 250mg in D5W 100mL IV SCH ×3 (09:56→20:15)
[2022-02-19] MEDS: NINTEDANIB ESYLATE 150 MG PO SCH ×2 (10:22→20:14)
--- NOTE | 2022-02-19 11:21 | Critical Care Progress Note ---
Date of Service February 19, 2022 Assessment & Plan (1) Acute on chronic respiratory failure with hypoxemia: Plan: Impression: 76-year-old female with history of ILD presents to the ICU with acute hypoxic respiratory failure and pneumothorax/pneumomediastinum Neuro - [facility] ICU: Negative Continue Prozac Cardiac - Currently hemodynamically stable. Cardiomediastinal silhouette is stable on chest x-ray. Continue frequent hemodynamic monitoring, continuous telemetry in ICU HTNcontinue MTP History of pulmonary hypertension secondary to ILD Respiratory - Acute on chronic hypoxic respiratory failurepatient on 2 L nasal cannula baseline secondary to ILD. Presented to ED with shortness of breath and increased oxygen requirements at home. -CT chest with small right pneumothorax and extensive pneumomediastinum and subcutaneous emphysema, extrapleural air due to multiple dissecting layers of pleural/mediastinal soft tissue. Bilateral bronchiectasis and groundglass opacities with honeycombing in the lower lobes bilaterally. -Chest x-ray with approximately 1 cm right pneumothorax which was stable on second image approximately 5 hours after. No indication for chest tube at this time -Avoid positive pressure if able (i.e. BiPAP) -Continue with 100% nonrebreather -Increase Solu-Medrol to 250 mg IV every 6 -Continuous monitoring pulse ox -On cefepime and Zithromax to rule out infectious process: Unlikely -Discussed with treating senior executive assistant: Momo: We will see patient tomorrow GI - Regular diet RENAL/LYTES - Creatinine stable, no electrolyte abnormalities at this time. Monitor routine BMPs - Strict I's and O's ENDO - No history of diabetes or thyroid disease HEME - H&H stable, monitor routine CBCs ID - Empiric cefepime and Zithromax LINES/IV ACCESS - Peripheral IVs DVT PROPHYLAXIS - SCDs CODE STATUS: DNR/DNI -Patient reaffirmed decision of DNR/DNI (2) Pneumothorax: (3) DVT prophylaxis: (4) Pulmonary hypertension: (5) Hypertension: (6) Cough: (7) Abnormal CT scan of lung: (8) IPF (idiopathic pulmonary fibrosis): (9) DJD (degenerative joint disease): Admission and Anticipated Discharge Date Admission Date: February 18, 2022 Supervising Physician Co-Signing Physician Notes I have personally spent 35 minutes of critical care time in the direct management of this patient. This is a life/limb threatening event. This includes time spent evaluating patient, direct bedside care, chart review, placing orders, interpretation of diagnostic studies, discussion with consultants, patient, and/or family members regarding treatment decisions, as well as other required patient management activities. This time is exclusive of all separately billable procedures, and teaching time and separate from and in addition to any other critical care service time. Subjective No significant complaint. Still having crepitus. had several concerns he wanted to speak outside of the room with regards to possible evaluation by her she. We discussed transfer if the family would desire it. I have discussed the case with Dr. Barr. Physical Exam Physical Exam: General: Alert. nontoxic. Skin: Warm, dry, Head: Atraumatic, crepitus around lower neck Ears, nose, mouth and throat: airway patent Cardiovascular: Normal peripheral perfusion Respiratory: no respiratory distress Gastrointestinal: Non distended Musculoskeletal: No deformity Results & Data Results & Data ([facility]) Vital Signs (Past 12 Hours) Vital Signs Pulse Resp BP Pulse Ox 02/19/22 10:00 28 H 130/60 93 02/19/22 09:00 72 25 H 123/77 94 02/19/22 08:00 83 31 H 146/78 H 87 L 02/19/22 07:45 71 30 H 130/84 86 L 02/19/22 07:00 67 22 136/76 94 02/19/22 06:45 70 20 93 02/19/22 06:00 65 21 140/82 93 02/19/22 05:00 63 18 137/86 91 02/19/22 04:00 62 19 133/84 91 02/19/22 03:00 61 19 135/72 93 02/19/22 02:00 61 19 142/69 H 93 02/19/22 01:00 61 17 123/76 93 02/19/22 00:00 59 L 15 135/78 95 Critical Care Results & Data Vital Signs (Past 12 Hours) Vital Signs Pulse Resp BP Pulse Ox 02/19/22 10:00 28 H 130/60 93 02/19/22 09:00 72 25 H 123/77 94 02/19/22 08:00 83 31 H 146/78 H 87 L 02/19/22 07:45 71 30 H 130/84 86 L 02/19/22 07:00 67 22 136/76 94 02/19/22 06:45 70 20 93 02/19/22 06:00 65 21 140/82 93 02/19/22 05:00 63 18 137/86 91 02/19/22 04:00 62 19 133/84 91 02/19/22 03:00 61 19 135/72 93 02/19/22 02:00 61 19 142/69 H 93 02/19/22 01:00 61 17 123/76 93 02/19/22 00:00 59 L 15 135/78 95 Lab & Micro Results (Past 24 Hours) RBC 4.12 M/uL (4.2-5.4) L 02/19/22 WBC 18.65 K/uL (4.8-10.8) H 02/19/22 Hgb 12.5 g/dL (12.0-16.0) 02/19/22 Hct 38.4 % (37-47) 02/19/22 MCV 93.2 fL (80-100) 02/19/22 MCH 30.3 pg (25-34) 02/19/22 MCHC 32.6 g/dL (32-36) 02/19/22 RDW Standard Deviation 49.1 fL (36.4-46.3) H 02/19/22 RDW Coefficient of Variation 14.6 % (11.5-14.5) H 02/19/22 Plt Count 265 K/uL (130-400) 02/19/22 MPV 10.5 fL (7.4-10.4) H 02/19/22 Neutrophils (%) (Auto) 92.8 % 02/18/22 Lymphocytes (%) (Auto) 3.7 % 02/18/22 Monocytes # (Auto) 0.39 K/uL (0.11-0.59) 02/18/22 Eosinophils # (Auto) 0.14 K/uL (0-0.5) 02/18/22 Immature Granulocyte % (Auto) 0.3 % 02/18/22 Neutrophils # (Auto) 16.04 K/uL (1.4-6.5) H 02/18/22 Lymphocytes # (Auto) 0.64 K/uL (1.2-3.4) L 02/18/22 Monocytes # (Auto) 0.39 K/uL (0.11-0.59) 02/18/22 Eosinophils # (Auto) 0.14 K/uL (0-0.5) 02/18/22 Basophils # (Auto) 0.01 K/uL (0-0.2) 02/18/22 Immature Granulocyte # (Auto) 0.06 K/uL (0.00-0.02) H 02/18/22 Na 136 mmol/L (136-145) 02/19/22 K 4.2 mmol/L (3.5-5.1) 02/19/22 Cl 99 mmol/L (98-107) 02/19/22 CO2 33 mmol/L (21-32) H 02/19/22 Anion Gap 4 (3-11) 02/19/22 BUN 22 mg/dl (6-23) 02/19/22 Creatinine 0.44 mg/dl (0.6-1.2) L 02/19/22 Estimated GFR ( Amer) 115.3 ml/min 02/19/22 Estimated GFR (Non-Af Amer) 99.4 ml/min 02/19/22 BUN/Creatinine Ratio 50.0 (10-20) H 02/19/22 Glu 88 mg/dl (70-99(Fasting)) 02/19/22 Ca 8.7 mg/dl (8.5-10.1) 02/19/22 Total Bilirubin 0.7 mg/dl (0.2-1.0) 02/18/22 AST 24 U/L (13-39) 02/18/22 ALT 30 U/L (7-52) 02/18/22 Alkaline Phosphatase 86 U/L (34-104) 02/18/22 TP 6.4 gm/dl (6.0-8.3) 02/18/22 Albumin 3.1 gm/dl (3.4-5.0) L 02/18/22 Globulin 3.3 gm/dl (2.5-4.0) 02/18/22 Albumin/Globulin Ratio 0.9 (0.9-2) 02/18/22 Mg 1.8 mg/dl (1.7-2.4) 02/19/22 05:07 02/19/22 Calcium Level 8.7 mg/dl (8.5-10.1) 02/19/22 05:07 02/19/22 Mihir Test Pass 02/18/22 20:41 02/18/22 Diagnostic Findings (Past 24 Hours) Chest X-Ray 02/18/22 12:15 XR chest 1V portable CLINICAL HISTORY: Dyspnea TECHNIQUE: Single frontal radiograph of the chest was obtained. Comparison: Comparison is made to chest radiograph 02/06/2022 FINDINGS: Interval development of extensive subcutaneous emphysema. The cardiomediastinal silhouette is normal. Evaluation is limited by overlying cutaneous emphysema. There is suggestion of bilateral airspace opacities. Evaluation is again limited, however there is suggestion of a right pneumothorax measuring up to 1 cm in maximum thickness. IMPRESSION: 1. Interval development of extensive subcutaneous emphysema. Evaluation of the lungs and pleura are limited, however there is suggestion of a small right pneumothorax. If clinical concern remains, CTA chest can be performed. 2. There is suggestion of bilateral airspace opacities which may represent atelectasis, pneumonia, and/or aspiration. ACT 112: Negative or not required by law. Electronically signed by: Alejandro Butt M.D. 02/18/2022 1:[address] 02/18/22 13:17 CT chest diagnostic wo con CLINICAL HISTORY: eval for pneumothorax TECHNIQUE: Multidetector row helical CT of the chest was performed. Coronal and sagittal reformations were obtained. Automated dose lowering techniques and/or adjustment according to patient size were utilized for this exam. CT DOSE: 233.21 mGy.cm Comparison: Comparison is made to chest 02/02/2022 FINDINGS: Lungs and pleura: There is a small right left pneumothorax. There appears to be no left pneumothorax, the appearance of extrapleural air is due to multiple dissecting layers of pleural/mediastinal soft tissues. Bilateral bronchiectasis and groundglass opacities are again seen, favoring the lower lobes. Honeycombing is noted at the lung bases. Heart and pericardium: Heart size is normal. No pericardial effusion. Vessels: Unremarkable. Mediastinum and terence: Pneumomediastinum is seen. Redemonstration of mediastinal lymphadenopathy with a right lower paratracheal node measuring 19 mm in short axis. Evaluation for hilar node is limited by noncontrast technique. Chest wall and lower neck: Extensive subcutaneous emphysema is seen, right greater than left, dissecting into the lower neck as well. Abdomen: Patient is status post gastric bypass surgery with a small to moderate hiatal hernia. There is calcification in the liver next to the gallbladder fossa. Bones: Degenerative changes in the thoracic spine. IMPRESSION: 1. Small right pneumothorax and extensive pneumomediastinum and subcutaneous emphysema. 2. Redemonstration of extensive fibrotic changes including honeycombing and bronchiectasis in the lower greater than upper lungs bilaterally, this is favored to represent idiopathic pulmonary fibrosis, possibly in a UIP pattern. 3. Superimposed infectious/plantar process cannot be excluded. Redemonstration of mediastinal and hilar lymphadenopathy, with limited evaluation due to pneumomediastinum and noncontrast technique. ACT 112: Negative or not required by law. Electronically signed by: Alejandro Butt M.D. 02/18/2022 2:04 PM Chest X-Ray 02/18/22 17:57 XR chest 1V portable CLINICAL HISTORY: Pneuomothorax TECHNIQUE: Single frontal radiograph of the chest was obtained. Comparison: Comparison is made to chest radiograph 02/18/[address] chest 02/18/2022 FINDINGS: No lines and tubes are seen. The cardiomediastinal silhouette is stable. Pneumomediastinum is again noted. Interstitial opacities are seen in the bilateral lungs. Superimposed densities are compatible with groundglass seen on prior chest CT. Evaluation of the pleura is limited by subcutaneous emphysema. There is suggestion of a right pneumothorax which is approximately stable in size at 10 cm in thickness. IMPRESSION: 1. Limited evaluation with suggestion of approximately stable right pneumothorax measuring approximately 10 cm in thickness. 2. Redemonstration of pneumomediastinum and some heterogeneous emphysema. ACT 112: Negative or not required by law. Electronically signed by: Alejandro Butt M.D. 02/18/2022 6:19 PM Chest X-Ray 02/19/22 06:00 XR chest 1V portable CLINICAL HISTORY: PTX with ILD COMPARISON STUDY: Chest CT and chest radiograph February 18, 2022. FINDINGS: Small right pneumothorax is similar to prior exam. There may also be a small left apical pneumothorax. Evaluation is difficult given extensive pneumomediastinum and subcutaneous gas within the chest wall and neck which was shown on prior exam. Lung aeration has significantly decreased since prior exam with interval increase in bilateral airspace opacities. Evidence for interstitial lung disease is better depicted on prior chest CT. A hiatal hernia is present. IMPRESSION: 1. Significant increase in bilateral airspace opacities. 2. No change in a small right pneumothorax. Possible small left apical pneumothorax. 3. Persistent extensive pneumomediastinum and subcutaneous gas within the chest wall and neck. ACT 112: Negative or not required by law. Electronically signed by: Ulises Can M.D. 02/19/2022 7:28 AM I & O Totals 24 Hours 02/18/22 02/19/22 02/20/22 06:59 06:59 06:59 Intake Total 104 / 104 Output Total Balance -1 104 / 104 Cumulative 02/18/22 11:36 thru 02/19/22 10:22 Intake Total 104 Output Total 1 Balance 103 RT Ventilator Mngmt (Last Documented) Ventilator Ordered Settings Respiratory Rate 28 02/19/22 10:00 Ventilator - PT Measurements Respiratory Rate 28 Coding Level of Care Code Critical Care 1st 30-74 mins Diagnoses Acute on chronic respiratory failure with hypoxemia J96.21 Pneumothorax J93.9 DVT prophylaxis Z29.9 Pulmonary hypertension I27.20 Hypertension I10 Cough R[address] scan of lung R91.8 IPF (idiopathic pulmonary fibrosis) J84.112 DJD (degenerative joint disease) M19.90
[2022-02-19] MEDS ORDERED: STAT IV Infusion **Titration per Protocol STA (19:04)
[2022-02-19] MEDS ORDERED: MODERATE STRESS LEVEL ONE (19:04)
[2022-02-19] MEDS ORDERED: PHARMACY GLYCEMIC MGMT CONSULT PRN (19:04)
[2022-02-19] MEDS ORDERED: INSULIN PROTOCOL GOAL RANGE ONE (19:04)
[2022-02-19] MEDS ORDERED: INSULIN REGULAR 250 UNITS in SODIUM CHLORIDE 0.9% 247.5 ML IV SCH (19:30)
[2022-02-19] MEDS ORDERED: NovoLIN-R BOLUS FROM BAG IV ONE (19:30)
[2022-02-19] MEDS: INSULIN ASPART PER UNIT SC SCH (20:11)
[2022-02-19] MEDS: MONTELUKAST SODIUM 10 MG TABLET PO SCH (20:13)
[2022-02-20] MEDS: methylPREDNISolone 250mg in D5W 100mL IV SCH (03:45)
[2022-02-20] MEDS: CEFEPIME 2,000 MG in SYRINGE 0 ML IV SCH (06:03)
[2022-02-20 06:07] LABS: Hematocrit (blood only) 39.3 % (37-47); Hemoglobin 12.9 g/dL (12.0-16.0); Immature Granulocytes # (auto) 0.04 K/uL (0.00-0.02); Immature Granulocytes % (auto) 0.3 %; Lymphocytes # (auto) 0.45 K/uL (1.2-3.4); Lymphocytes % (auto) 3.3 %; Mean Corpuscular Hemoglobin 30.4 pg (25-34); Mean Corpuscular Hgb Conc 32.8 g/dL (32-36); Mean Corpuscular Volume 92.5 fL (80-100); Mean Platelet Volume 10.5 fL (7.4-10.4); Monocytes # (auto) 0.11 K/uL (0.11-0.59); Monocytes % (auto) 0.8 %; Neutrophils # (auto) 12.88 K/uL (1.4-6.5); Neutrophils % (auto) 95.6 %; Platelet Count 240 K/uL (130-400); RDW Coefficient of Variation 14.4 % (11.5-14.5); RDW Standard Deviation 48.6 fL (36.4-46.3); Red Blood Count 4.25 M/uL (4.2-5.4); White Blood Count 13.48 K/uL (4.8-10.8)
[2022-02-20 06:16] LABS: Calcium 8.7 mg/dl (8.5-10.1); Creatinine Clr Calc Pharmacy 88.9 ml/min; Est GFR (African American) 104.1 ml/min; Est GFR (Non-African American) 89.8 ml/min; Magnesium 1.9 mg/dl (1.7-2.4); Phosphorus 3.7 mg/dl (2.5-4.9); Potassium 4.2 mmol/L (3.5-5.1)
[2022-02-20 06:19] LABS: Partial Thromboplastin Ratio 1.1; Partial Thromboplastin Time 30.6 Seconds (21.0-31.0)
--- NOTE | 2022-02-20 07:01 | XRay Report ---
XR chest 1V portable CLINICAL HISTORY: PTX with ILD COMPARISON STUDY: Chest CT February 18, 2022. Chest radiograph February 19, 2022. FINDINGS: Note is again made of pneumomediastinum and subcutaneous gas within the chest wall and neck . Subcutaneous gas is improved. Bilateral airspace opacities within lungs have improved. Small bilate ral pneumothoraces are again noted. This is similar to prior exam. Cardiomediastinal silhouette is st able. IMPRESSION: 1. Interval improvement in lung aeration. 2. Persistent pneumomediastinum. Interval decrease in subcutaneous gas within the chest wall and nec k. 3. No significant change in small bilateral pneumothoraces. ACT 112: Negative or not required by law. Electronically signed by: Ulises Can M.D. 02/20/2022 7:00 AM
--- NOTE | 2022-02-20 07:33 | Hospitalist Progress Note ---
Date of Service February 20, 2022 Assessment & Plan (1) Pneumothorax: Plan: small bilateral PTX with large amount of subcutaneous emphysema. Admitting attending discussed with [facility] at patient's request. Dr. Wilkins did not feel transfer was warranted and agreed with conservative management at this time. stoppin Ofev, reduced steroids, on Bactrim to Cover PJP - Non-rebreather to aid resorption No emergent need for chest tube at this time patient will be continued on nonrebreather but not positive pressure ventilation as concern not to worsen pneumothoraces (2) IPF (idiopathic pulmonary fibrosis): Plan: Acute on chronic respiratory failure with hypoxemia advanced. Follows with Dr. Gege Currie at [facility] and Sebastien Barr at [facility]. -Comparison x-ray to 02/06 looks worse currently recommendations for higher steroid ministration we will use IV Solu-Medrol -Negative procalcitonin Will expand antibiotic coverage to include PJP with Bactrim (3) Hypertension: Plan: BP in the ER was 160/70. - Continue home metoprolol (4) DVT prophylaxis: Plan: SCDs at this time in case procedures are warranted if she stabilizes will initiate subcu heparin. Admission and Anticipated Discharge Date Admission Date: February 18, 2022 Subjective pt still very short of breath, cannot come off NRB to eat, started on PJP bactrim does have elevation of LDH. reduced steroids Review of Systems Review of Systems: Mild to moderate distress and fatigue no headache, no visual changes no speech or swallowing issues no chest pain, pressure or palpitations Significant dyspnea on exertion nonproductive coughing no abdominal pain, nausea or vomiting, diarrhea or constipation no dysuria, hematuria or frequency no focal joint pain or swelling no back pain, CVA tenderness or radicular pain Crepitance felt in the anterior chest mostly on the right no focal signs of weakness or numbness or altered sensation no complaints of anxiety or depression.. Physical Exam Physical Exam: The patient appeared chronic respiratory distress but stable Vital signs as documented. Head exam is normocephalic atraumatic Neck is with JVD, thyromegaly, or carotid bruits, crepitance or felt in the right anterior chest Lungs are bilateral rales heard in all lung oneill Cardiac exam, Rhythm is regular.. No murmurs, rubs or gallops. Abdominal exam reveals normal bowel sounds, soft non tender, no masses Extremities are nonedematous and both pedal pulses are present Neurologic exam is alert and oriented, no focal loss of strength or sensation Skin is without bruises or rashes Psychologically is without concerns for anxiety or depression.. Results & Data Results & Data ([facility]) Vital Signs (Past 12 Hours) Vital Signs Temp Pulse Resp BP Pulse Ox 02/20/22 06:01 71 19 178/109 H 96 02/20/22 05:00 68 19 158/86 H 94 02/20/22 04:00 61 18 151/90 H 96 02/20/22 03:00 63 21 145/83 H 02/20/22 02:00 61 18 144/76 H 02/20/22 01:00 62 20 150/81 H 95 02/20/22 00:47 64 02/20/22 00:00 67 20 149/101 H 94 02/19/22 23:00 64 20 142/80 H 93 02/19/22 22:00 68 22 147/107 H 92 02/19/22 21:00 67 21 90 02/19/22 20:01 98.1 F 78 26 H 168/95 H 96 PG Care Time/CCT Total # of Minutes Spent Total Time Spent with Patient: Total time spent is greater than 50% in coordination of care (as documented) at patient's floor/unit and/or counseling patient: Coding Level of Care Code 37219 Subseq Hosp Care Lvl 2 Diagnoses Pneumothorax J93.9 IPF (idiopathic pulmonary fibrosis) J84.112 Hypertension I10 DVT prophylaxis Z29.9
[2022-02-20] MEDS: hydrALAZINE HCL 20 MG/ML VIAL IV PRN (07:42)
[2022-02-20] MEDS ORDERED: traMADol HCL 50 MG TABLET PO PRN (08:04)
[2022-02-20] MEDS ORDERED: fentaNYL citrate 100 MCG/2 ML VIAL IV PRN ×2 (08:04→09:41)
[2022-02-20] MEDS ORDERED: METHYLPREDNISOLONE IV SCH (08:05)
[2022-02-20] MEDS ORDERED: DEXTROSE 5% IV SCH (08:05)
--- NOTE | 2022-02-20 08:08 | Critical Care Progress Note ---
Date of Service February 20, 2022 Assessment & Plan (1) Pneumothorax: (2) Hypoxia: (3) IPF (idiopathic pulmonary fibrosis): (4) Subcutaneous emphysema: Plan: Impression: 76-year-old female with biopsy-proven UIP followed at [facility] maintained on nintedanib and prednisone with kandice several week course requiring hospitalization and escalation of steroids presenting now with secondary pneumothorax with extensive subcutaneous emphysema and hypoxemic respiratory failure. 24-hour events: Patient was brought to the ICU. She was placed on nonrebreather. She has had some chest pain which has not been relieved with Tyl enol. Her respiratory status is stable. She has been initiated on high-dose steroids and antibiotics were continued. Recommendations: 1. Neurologic: Currently suffering from some chest discomfort likely secondary to pneumothorax and subcutaneous emphysema. We will pursue tramadol and escalate to fentanyl if tramadol is ineffectual. Can continue as needed Tylenol as well. 2. Respiratory: Etiology of her pneumothorax is unclear. This could represent rapid progression of her underlying interstitial lung disease although underlying infection would also be a possibility. Her procalcitonin was negative so I think broad-spectrum antibiotics can be discontinued. Given her immune suppressed state, she is at risk for other atypical infections including pneumocystis. We will check LDH and Fungitell and empirically place the patient on PJP doses of Bactrim. Ideally would like to pursue bronchoscopy however given the patient's tenuous respiratory status and underlying pneumothorax, think the risks outweigh the benefits for now. We will continue to follow her pneumothoraces but her x-ray today looks better. No indication for chest tube currently although that could cell changer time. The subcutaneous emphysema also appears better and I do not see an indication for subcutaneous venting currently. We will decrease her prednisone to 125 mg every 6. Hold nintedanib at this point in time. Continue to avoid positive pressure ventilation if possible. X-ray today with some slight interval improvement 3. Cardiovascular: Continue antihypertensives. 4. GI: No current issues. Continue current diet as tolerated. 5. Renal: ICU electrolyte replacement protocol. 6. ID: Continue azithromycin for potential anti-inflammatory properties. Okay to discontinue cefepime at this point time. Will place on Bactrim 2 tablets double strength 3 times daily for potential PJP. If the patient's respiratory status stabilizes enough to consider bronchoscopy, this may be consideration in the future. She is not expectorating phlegm at this point time. Procalcitonin was negative. 7. Endocrine: With high-dose steroids patient is required initiation of an insulin infusion. Continue glycemic control at this point time. 8: Heme-onc: No current issues. DVT proph with SQ heparin Patient is critically ill at this point time with significant possibility of loss of organ function or life. Patient's son, Tito, was updated by telephone. Discussed with critical care bedside nurse and with patient at bedside. Total of 50 minutes in critical care time was spent in evaluation management and stabilization of this patient. Admission and Anticipated Discharge Date Admission Date: February 18, 2022 Subjective Patient seen and examined. Discussed with bedside critical care nurse as well as with overnight critical care AICHA. Had discussed with sales project engineer yesterday. The patient feels that she is about the same today. She continues to have intermittent chest pain. It was not resolved with Tylenol. She is not really expectorating phlegm. She is not had fevers chills or night sweats. She is swallowing fine. Her voice is fine. She is not bothered by the subcutaneous emphysema. Review of Systems Review of Systems: All systems reviewed & are unremarkable except as noted in Subjective Physical Exam Constitutional: WD/WN, vitals as above ENMT: Subcutaneous emphysema in the supraclavicular fossa extending up to the neck and in the chest wall Neck: trachea midline, no thyromegaly Respiratory: + tachypneic; no respiratory distress Auscultation: + crackles; no wheezes Cardiovascular: RRR, no murmur, no edema Gastrointestinal (Abdomen): normal bowel sounds, soft, nontender, no hepatosplenomegaly Musculoskeletal: Extremities: extremities normal to inspection Skin: no rashes, warm and dry Neurologic: Nonfocal exam Lymphatic: no cervical lymphadenopathy Results & Data Results & Data ([facility]) Vital Signs (Past 12 Hours) Vital Signs Pulse Resp BP Pulse Ox 02/20/22 06:01 71 19 178/109 H 96 02/20/22 05:00 68 19 158/86 H 94 02/20/22 04:00 61 18 151/90 H 96 02/20/22 03:00 63 21 145/83 H 02/20/22 02:00 61 18 144/76 H 02/20/22 01:00 62 20 150/81 H 95 02/20/22 00:47 64 07/04/22 00:00 67 20 149/101 H 94 02/19/22 23:00 64 20 142/80 H 93 02/19/22 22:00 68 22 147/107 H 92 02/19/22 21:00 67 21 90 Critical Care Results & Data Vital Signs (Past 12 Hours) Vital Signs Pulse Resp BP Pulse Ox 02/20/22 06:01 71 19 178/109 H 96 02/20/22 05:00 68 19 158/86 H 94 02/20/22 04:00 61 18 151/90 H 96 02/20/22 03:00 63 21 145/83 H 02/20/22 02:00 61 18 144/76 H 02/20/22 01:00 62 20 150/81 H 95 02/20/22 00:47 64 02/20/22 00:00 67 20 149/101 H 94 02/19/22 23:00 64 20 142/80 H 93 02/19/22 22:00 68 22 147/107 H 92 02/19/22 21:00 67 21 90 Lab & Micro Results (Past 24 Hours) RBC 4.25 M/uL (4.2-5.4) 02/20/22 WBC 13.48 K/uL (4.8-10.8) H 02/20/22 Hgb 12.9 g/dL (12.0-16.0) 02/20/22 Hct 39.3 % (37-47) 02/20/22 MCV 92.5 fL (80-100) 02/20/22 MCH 30.4 pg (25-34) 02/20/22 MCHC 32.8 g/dL (32-36) 02/20/22 RDW Standard Deviation 48.6 fL (36.4-46.3) H 02/20/22 RDW Coefficient of Variation 14.4 % (11.5-14.5) 02/20/22 Plt Count 240 K/uL (130-400) 02/20/22 MPV 10.5 fL (7.4-10.4) H 02/20/22 Neutrophils (%) (Auto) 95.6 % 02/20/22 Lymphocytes (%) (Auto) 3.3 % 02/20/22 Monocytes # (Auto) 0.11 K/uL (0.11-0.59) 02/20/22 Eosinophils # (Auto) 0.00 K/uL (0-0.5) 02/20/22 Immature Granulocyte % (Auto) 0.3 % 02/20/22 Neutrophils # (Auto) 12.88 K/uL (1.4-6.5) H 02/20/22 Lymphocytes # (Auto) 0.45 K/uL (1.2-3.4) L 02/20/22 Monocytes # (Auto) 0.11 K/uL (0.11-0.59) 02/20/22 Eosinophils # (Auto) 0.00 K/uL (0-0.5) 02/20/22 Basophils # (Auto) 0.00 K/uL (0-0.2) 02/20/22 Immature Granulocyte # (Auto) 0.04 K/uL (0.00-0.02) H 02/20/22 Na 134 mmol/L (136-145) L 02/20/22 K 4.2 mmol/L (3.5-5.1) 02/20/22 Cl 99 mmol/L (98-107) 02/20/22 CO2 29 mmol/L (21-32) 02/20/22 Anion Gap 6 (3-11) 02/20/22 BUN 21 mg/dl (6-23) 02/20/22 Creatinine 0.60 mg/dl (0.6-1.2) 02/20/22 Estimated GFR ( Amer) 104.1 ml/min 02/20/22 Estimated GFR (Non-Af Amer) 89.8 ml/min 02/20/22 BUN/Creatinine Ratio 35.0 (10-20) H 02/20/22 Glu 136 mg/dl (70-99(Fasting)) H 02/20/22 Ca 8.7 mg/dl (8.5-10.1) 02/20/22 Phosphorus Level 3.7 mg/dl (2.5-4.9) 02/20/22 Mg 1.9 mg/dl (1.7-2.4) 02/20/22 05:29 02/20/22 Calcium Level 8.7 mg/dl (8.5-10.1) 02/20/22 05:29 02/20/22 Diagnostic Findings (Past 24 Hours) Chest X-Ray 02/20/22 06:00 XR chest 1V portable CLINICAL HISTORY: PTX with ILD COMPARISON STUDY: Chest CT February 18, 2022. Chest radiograph February 19, 2022. FINDINGS: Note is again made of pneumomediastinum and subcutaneous gas within the chest wall and neck. Subcutaneous gas is improved. Bilateral airspace opacities within lungs have improved. Small bilateral pneumothoraces are again noted. This is similar to prior exam. Cardiomediastinal silhouette is stable. IMPRESSION: 1. Interval improvement in lung aeration. 2. Persistent pneumomediastinum. Interval decrease in subcutaneous gas within the chest wall and neck. 3. No significant change in small bilateral pneumothoraces. ACT 112: Negative or not required by law. Electronically signed by: Ulises Can M.D. 02/20/2022 7:00 AM I & O Totals 24 Hours 02/19/22 02/20/22 02/21/22 06:59 06:59 06:59 Intake Total 1109.017 / 1109.017 Output Total 450 / 450 Balance - / -1 659.017 / 659.017 Cumulative 02/18/22 11:36 thru 02/20/22 06:54 Intake Total 1109.017 Output Total 451 Balance 658.017 RT Ventilator Mngmt (Last Documented) Ventilator Ordered Settings Respiratory Rate 19 02/20/22 06:01 Ventilator - PT Measurements Respiratory Rate 19 Coding Level of Care Code Critical Care 1st 30-74 mins Diagnoses Pneumothorax J93.12 Pneumothorax type: spontaneous, secondary Hypoxia R09.02 IPF (idiopathic pulmonary fibrosis) J84.112 Subcutaneous emphysema T79.7XXA (1) Pneumothorax Pneumothorax type: spontaneous, secondary Qualified Code(s): J93.12 - Secondary spontaneous pneumothorax
[2022-02-20] MEDS ORDERED: fentaNYL citrate 100 MCG/2 ML VIAL ONE (08:21)
[2022-02-20] MEDS: GABAPENTIN 300 MG CAP PO SCH (08:29)
[2022-02-20] MEDS: AZITHROMYCIN 250 MG TAB PO SCH (08:29)
[2022-02-20] MEDS: PANTOprazole 40 MG TAB PO SCH ×2 (08:29→20:42)
[2022-02-20] MEDS: FLUoxetine HCL 20 MG CAP PO SCH (08:29)
[2022-02-20] MEDS: METOPROLOL SUCC 50MG EXT REL TAB PO SCH ×2 (08:29→20:41)
[2022-02-20] MEDS: INSULIN ASPART PER UNIT SC SCH ×5 (08:30→23:36)
[2022-02-20] MEDS: methylPREDNISolone 125 MG in SYRINGE 0 ML IV SCH ×4 (08:52→23:34)
[2022-02-20] MEDS ORDERED: LANTUS PER UNIT CHARGE SQ ONE (09:00)
[2022-02-20] MEDS: KETOROLAC TROMETHAMINE 15 MG/ML VIAL IV SCH ×3 (09:56→21:57)
[2022-02-20] MEDS: LIDOCAINE 5% 1 PATCH TD SCH (11:09)
--- NOTE | 2022-02-20 14:05 | Pharmacy Report ---
Pharmacy Glycemic Short Note 2 - Date of Service February 20, 2022 - Glycemic Short BSG Results (Last 24 hours): 02/19/22 02/19/22 02/19/22 18:26 21:39 22:39 Glucose POC Glucose 295 H 192 H 165 H 02/19/22 02/20/22 02/20/22 23:39 00:42 01:38 Glucose POC Glucose 148 H 123 H 115 H 02/20/22 02/20/22 02/20/22 02:38 03:41 04:38 Glucose POC Glucose 116 H 114 H 141 H 02/20/22 02/20/22 02/20/22 05:29 05:38 06:37 Glucose 136 H POC Glucose 144 H 121 H 02/20/22 02/20/22 02/20/22 07:44 08:47 11:24 Glucose POC Glucose 151 H 151 H 161 H OUTPATIENT ANTIDIABETIC REGIMEN: * None ASSESSMENT: * 76 y/o F admitted for pneumonia. Patient does not have a PMH significant for diabetes and was not on any anti-diabetic meds at home. HbA1c ordered. * She was on Prednisone taper prior to admission which most likely caused BSGs to trend up. * BSGs yesterday were [phone] mg/dl. Pharmacy was consulted for glycemic management. * Insulin drip was started yesterday evening. Patient received around 18 units from the insulin drip over 12 hrs. BSGs trended down to 116 mg/dl this AM. * Yesterday patient was started on Solu medrol IV 250 mg q6h. Dose decreased to IV 125 mg q6h today. * Basal Lantus 15 units ordered this AM and the insulin drip was discontinued. * Pre-lunch BSG was 161 mg/dl. Patient resumed food intake with lunch today. Expect BSGs to trend up with diet and IV steroids around the clock. * Basal dose scale added for HS based on BSG. * Novolog continued based on stress of 3. PLAN FOR INPATIENT GLYCEMIC CONTROL: * Basal insulin * Lantus 15 units SQ this AM * Lantus 0-15 units SQ HS based on BSG * Bolus insulin * NovoLog per scale ACHS or Q6hrs while NPO. Added 00,04 checks * Goal Range: Low 120 mg/dL - High 150 mg/dL * Correction Factor: 20 mg/dL/unit * Nutritional / Prandial insulin per carb ratio of 1 unit per 7 grams CHO consumed
[2022-02-20] MEDS: HEPARIN SOD 5,000 UNIT/0.5 ML VIAL SQ SCH ×2 (15:07→20:44)
[2022-02-20] MEDS: SULFAMETHOXAZOLE/TRIMETHOPRIM DS 800/160MG TAB PO SCH ×2 (15:07→21:57)
[2022-02-20] MEDS: MONTELUKAST SODIUM 10 MG TABLET PO SCH (20:42)
[2022-02-20] MEDS ORDERED: LANTUS PER UNIT CHARGE SQ SCH (21:00)
--- NOTE | 2022-02-20 22:32 | Electrocardiogram Report ---
Test Reason : Blood Pressure : / mmHG Vent. Rate : 065 BPM Atrial Rate : 065 BPM P-R Int : 184 ms QRS Dur : 076 ms QT Int : 398 ms P-R-T Axes : 037 -50 045 degrees QTc Int : 413 ms Normal sinus rhythm Left anterior fascicular block Abnormal ECG When compared with ECG of 02-FEB-2022 12:38, T wave inversion no longer evident in Inferior leads T wave amplitude has increased in Anterior leads Confirmed by Juan José Albright ([id number]) on 02/20/2022 10:32:37 PM Referred By: REFERRED SELF Confirmed By:Juan José Albright
[2022-02-21] MEDS: KETOROLAC TROMETHAMINE 15 MG/ML VIAL IV SCH (03:53)
[2022-02-21] MEDS: INSULIN ASPART PER UNIT SC SCH ×5 (03:58→21:04)
[2022-02-21 05:30] LABS: Hematocrit (blood only) 39.1 % (37-47); Hemoglobin 13.2 g/dL (12.0-16.0); Immature Granulocytes # (auto) 0.06 K/uL (0.00-0.02); Immature Granulocytes % (auto) 0.4 %; Lymphocytes # (auto) 0.58 K/uL (1.2-3.4); Lymphocytes % (auto) 3.5 %; Mean Corpuscular Hemoglobin 31.2 pg (25-34); Mean Corpuscular Hgb Conc 33.8 g/dL (32-36); Mean Corpuscular Volume 92.4 fL (80-100); Mean Platelet Volume 10.4 fL (7.4-10.4); Monocytes # (auto) 0.32 K/uL (0.11-0.59); Monocytes % (auto) 1.9 %; Neutrophils % (auto) 94.2 %; Platelet Count 240 K/uL (130-400); RDW Coefficient of Variation 14.6 % (11.5-14.5); Red Blood Count 4.23 M/uL (4.2-5.4); White Blood Count 16.66 K/uL (4.8-10.8)
[2022-02-21 05:38] LABS: Partial Thromboplastin Ratio 1.1; Partial Thromboplastin Time 30.1 Seconds (21.0-31.0)
[2022-02-21] MEDS: SULFAMETHOXAZOLE/TRIMETHOPRIM DS 800/160MG TAB PO SCH ×4 (05:44→23:18)
[2022-02-21] MEDS: methylPREDNISolone 125 MG in SYRINGE 0 ML IV SCH ×4 (05:45→23:18)
[2022-02-21] MEDS: HEPARIN SOD 5,000 UNIT/0.5 ML VIAL SQ SCH ×3 (05:45→21:15)
[2022-02-21] MEDS ORDERED: LABETALOL HCL IV 5 MG/ML 20ML IV STA (06:10)
[2022-02-21 06:31] LABS: BUN Creatinine Ratio 42.3 (10-20); Calcium 8.9 mg/dl (8.5-10.1); Creatinine Clr Calc Pharmacy 51.5 ml/min; Est GFR (African American) 61.3 ml/min; Est GFR (Non-African American) 52.9 ml/min; Magnesium 2.1 mg/dl (1.7-2.4); Phosphorus 4.4 mg/dl (2.5-4.9); Potassium 4.7 mmol/L (3.5-5.1)
[2022-02-21 06:44] LABS: Estimated Average Glucose 151 mg/dl; Hemoglobin A1C 6.9 % (4.5-5.6)
[2022-02-21] MEDS ORDERED: GLUCOSE 40% GEL 15 GM TUBE PO PRN (07:45)
[2022-02-21] MEDS ORDERED: CARBOHYDRATES FOR HYPOGLYCEMIA PO PRN (07:45)
[2022-02-21] MEDS ORDERED: DEXTROSE 50% 50 ML SYRINGE IV PRN (07:45)
[2022-02-21] MEDS ORDERED: GLUCAGON FOR INJ 1 MG VIAL IM PRN (07:45)
[2022-02-21] MEDS ORDERED: GLUCOSE 10 TAB/TUBE PO PRN (07:45)
--- NOTE | 2022-02-21 08:12 | Critical Care Progress Note ---
Date of Service February 21, 2022 Assessment & Plan (1) Pneumothorax: (2) Hypoxia: (3) IPF (idiopathic pulmonary fibrosis): (4) Subcutaneous emphysema: Plan: Impression: 76-year-old female with biopsy-proven UIP followed at [facility] maintained on nintedanib and prednisone with kandice several week course requiring hospitalization and escalation of steroids presenting now with secondary pneumothorax with extensive subcutaneous emphysema and hypoxemic respiratory failure. 24-hour events: Patient transitioned off full facemask to nasal cannula and then to heated high flow oxygen. She was initiated on high-dose Bactrim for potential PJP. She has been weaned off the insulin drip. Recommendations: 1. Neurologic: Pain issues well-controlled on current regimen. Continue to follow clinically. 2. Respiratory: Etiology of her pneumothorax is unclear. This could represent rapid progression of her underlying interstitial lung disease although underlying infection would also be a possibility. Her procalcitonin was negative, however LDH was elevated and galactomannan pending. Empirically treating for PJP. Ideally would like to pursue bronchoscopy however given the patient's tenuous respiratory status and underlying pneumothorax, think the risks outweigh the benefits for now. We will continue to follow her pneumothoraces radiographically with low threshold for tube thoracostomy if they show progression. Continue Solu-Medrol at 125 mg IV every 6. Holding nintedanib. Try and avoid positive airway pressure if possible. Continue to follow subcutaneous emphysema. May require venting if becomes problematic and if worsens, may push for earlier tube thoracostomy. If the patient develops significant bronchopleural fistula, transfer to higher level of care may be appropriate 3. Cardiovascular: Continue antihypertensives. 4. GI: No current issues. Continue current diet as tolerated. 5. Renal: ICU electrolyte replacement protocol. Serum creatinine slightly increased today. Continue to trend. May be a function of Bactrim. 6. ID: Day #3 azithromycin day #2 high-dose Bactrim. Procalcitonin negative. Treating for presumptive PJP. On steroids. 7. Endocrine: Continue glycemic protocol. Off insulin infusion for now. 8: Heme-onc: No current issues. DVT proph with SQ heparin Patient is DO NOT INTUBATE. Patient is critically ill at this point time with significant possibility of loss of organ function or life. Patient's will be updated by phone later this morning. Discussed with critical care bedside nurse and with patient at bedside. Total of 42 minutes in critical care time was spent in evaluation management and stabilization of this patient. Care was reviewed on multidisciplinary rounds Admission and Anticipated Discharge Date Admission Date: February 18, 2022 Subjective Patient seen and examined. EMR reviewed. The patient is awake alert and sitting up in bed. She is mildly tachypneic. She does have a slight cushingoid appearance. She is able to converse appropriately. She denies chest pain today. Review of Systems Review of Systems: All systems reviewed & are unremarkable except as noted in Subjective Physical Exam Constitutional: WD/WN, vitals as above Neck: trachea midline, no thyromegaly Respiratory: + tachypneic; no respiratory distress Auscultation: + crackles; no wheezes Cardiovascular: RRR, no murmur, no edema Gastrointestinal (Abdomen): normal bowel sounds, soft, nontender, no hepatosplenomegaly Musculoskeletal: Extremities: extremities normal to inspection Skin: no rashes, warm and dry Lymphatic: no cervical lymphadenopathy Results & Data Results & Data ([facility] [place]) Vital Signs (Past 12 Hours) Vital Signs Temp Pulse Pulse Resp BP Pulse Ox 02/21/22 07:55 93 02/21/22 07:47 73 24 90 02/21/22 07:01 69 26 H 143/92 H 84 L 02/21/22 07:00 69 18 88 L 02/21/22 06:10 64 19 177/101 H 86 L 02/21/22 06:01 64 19 187/85 H 86 L 02/21/22 06:00 66 19 87 L 02/21/22 05:01 64 18 167/80 H 92 02/21/22 04:24 60 19 166/81 H 89 L 02/21/22 04:01 65 21 181/110 H 87 L 02/21/22 03:01 64 19 143/91 H 89 L 02/21/22 02:01 36.7 C 66 30 H 156/100 H 88 L 02/21/22 01:01 64 29 H 159/83 H 90 02/21/22 00:01 63 32 H 138/78 90 02/20/22 23:17 67 02/20/22 23:01 66 26 H 150/80 H 90 02/20/22 22:02 75 18 137/80 89 L 02/20/22 21:01 76 19 183/111 H 88 L Critical Care Results & Data Vital Signs (Past 12 Hours) Vital Signs Temp Pulse Pulse Resp BP Pulse Ox 02/21/22 07:55 93 02/21/22 07:47 73 24 90 02/21/22 07:01 69 26 H 143/92 H 84 L 02/21/22 07:00 69 18 88 L 02/21/22 06:10 64 19 177/101 H 86 L 02/21/22 06:01 64 19 187/85 H 86 L 02/21/22 06:00 66 19 87 L 02/21/22 05:01 64 18 167/80 H 92 02/21/22 04:24 60 19 166/81 H 89 L 02/21/22 04:01 65 21 181/110 H 87 L 02/21/22 03:01 64 19 143/91 H 89 L 02/21/22 02:01 36.7 C 66 30 H 156/100 H 88 L 02/21/22 01:01 64 29 H 159/83 H 90 02/21/22 00:01 63 32 H 138/78 90 02/20/22 23:17 67 02/20/22 23:01 66 26 H 150/80 H 90 02/20/22 22:02 75 18 137/80 89 L 02/20/22 21:01 76 19 183/111 H 88 L Lab & Micro Results (Past 24 Hours) RBC 4.23 M/uL (4.2-5.4) 02/21/22 WBC 16.66 K/uL (4.8-10.8) H 02/21/22 Hgb 13.2 g/dL (12.0-16.0) 02/21/22 Hct 39.1 % (37-47) 02/21/22 MCV 92.4 fL (80-100) 02/21/22 MCH 31.2 pg (25-34) 02/21/22 MCHC 33.8 g/dL (32-36) 02/21/22 RDW Standard Deviation 49.0 fL (36.4-46.3) H 02/21/22 RDW Coefficient of Variation 14.6 % (11.5-14.5) H 02/21/22 Plt Count 240 K/uL (130-400) 02/21/22 MPV 10.4 fL (7.4-10.4) 02/21/22 Neutrophils (%) (Auto) 94.2 % 02/21/22 Lymphocytes (%) (Auto) 3.5 % 02/21/22 Monocytes # (Auto) 0.32 K/uL (0.11-0.59) 02/21/22 Eosinophils # (Auto) 0.00 K/uL (0-0.5) 02/21/22 Immature Granulocyte % (Auto) 0.4 % 02/21/22 Neutrophils # (Auto) 15.70 K/uL (1.4-6.5) H 02/21/22 Lymphocytes # (Auto) 0.58 K/uL (1.2-3.4) L 02/21/22 Monocytes # (Auto) 0.32 K/uL (0.11-0.59) 02/21/22 Eosinophils # (Auto) 0.00 K/uL (0-0.5) 02/21/22 Basophils # (Auto) 0.00 K/uL (0-0.2) 02/21/22 Immature Granulocyte # (Auto) 0.06 K/uL (0.00-0.02) H 02/21/22 Na 134 mmol/L (136-145) L 02/21/22 K 4.7 mmol/L (3.5-5.1) 02/21/22 Cl 98 mmol/L (98-107) 02/21/22 CO2 29 mmol/L (21-32) 02/21/22 Anion Gap 7 (3-11) 02/21/22 BUN 44 mg/dl (6-23) H 02/21/22 Creatinine 1.04 mg/dl (0.6-1.2) 02/21/22 Estimated GFR ( Amer) 61.3 ml/min 02/21/22 Estimated GFR (Non-Af Amer) 52.9 ml/min 02/21/22 BUN/Creatinine Ratio 42.3 (10-20) H 02/21/22 Glu 162 mg/dl (70-99(Fasting)) H 02/21/22 Ca 8.9 mg/dl (8.5-10.1) 02/21/22 Phosphorus Level 4.4 mg/dl (2.5-4.9) 02/21/22 Lactate Dehydrogenase 314 U/L (86-244) H 02/20/22 Mg 2.1 mg/dl (1.7-2.4) 02/21/22 05:17 02/21/22 Calcium Level 8.9 mg/dl (8.5-10.1) 02/21/22 05:17 02/21/22 I & O Totals 24 Hours 02/20/22 02/21/22 02/22/22 06:59 06:59 06:59 Intake Total 1109.017 / 1109.017 602.49 / 602.49 Output Total 450 / 450 701 / 701 Balance 659.017 / 659.017 -98.51 / -98.51 Cumulative 02/18/22 11:36 thru 02/21/22 06:00 Intake Total 1711.507 Output Total 1152 Balance 559.507 RT Ventilator Mngmt (Last Documented) Ventilator Ordered Settings Respiratory Rate 24 02/21/22 07:47 Fraction of Inspired Oxygen 100 02/21/22 07:47 Ventilator - PT Measurements Respiratory Rate 24 Coding Level of Care Code Critical Care 1st 30-74 mins Diagnoses Pneumothorax J93.12 Pneumothorax type: spontaneous, secondary Hypoxia R09.02 IPF (idiopathic pulmonary fibrosis) J84.112 Subcutaneous emphysema T79.7XXA (1) Pneumothorax Pneumothorax type: spontaneous, secondary Qualified Code(s): J93.12 - Secondary spontaneous pneumothorax
[2022-02-21] MEDS: FLUoxetine HCL 20 MG CAP PO SCH (08:22)
[2022-02-21] MEDS: METOPROLOL SUCC 50MG EXT REL TAB PO SCH ×2 (08:22→21:08)
[2022-02-21] MEDS: LIDOCAINE 5% 1 PATCH TD SCH (08:22)
[2022-02-21] MEDS: GABAPENTIN 300 MG CAP PO SCH (08:22)
[2022-02-21] MEDS: AZITHROMYCIN 250 MG TAB PO SCH (08:22)
[2022-02-21] MEDS: PANTOprazole 40 MG TAB PO SCH ×2 (08:23→21:08)
--- NOTE | 2022-02-21 08:46 | XRay Report ---
SINGLE VIEW CHEST CLINICAL HISTORY: Pneumothorax. FINDINGS: An AP, portable, upright chest radiograph is compared to study dated 02/20/2022 and correlate d with chest CT dated 02/18/2022.. The cardiomediastinal silhouette is unremarkable. Changes of chronic interstitial lung disease are similar to previous. There is no definite superimposed airspace consol idation or large pleural effusion identified. There are right larger than left pneumothoraces the rig ht pneumothorax has increased in size from yesterday, with approximately 3 cm of apical pleural separ ation. There is approximately 0.9 cm pleural separation at the left apex. The skeletal structures are osteopenic. The bony thorax is grossly intact. Extensive subcutaneous cutaneous emphysema is seen in the lower neck and throughout the chest wall. This is increased from previous. Surgical clips are no fady in the upper abdomen. IMPRESSION: 1. Right larger than left pneumothoraces are again noted. The right apical pneumothorax has increased in size from yesterday. 2. Increasing subcutaneous emphysema. 3. Changes of chronic interstitial lung disease are similar to previous. ACT 112: Negative or not required by law. Electronically signed by: Arslan Angelo M.D. 02/21/2022 8:45 AM
--- NOTE | 2022-02-21 10:18 | Pharmacy Report ---
Pharmacy Glycemic Short Note 2 - Date of Service February 21, 2022 - Glycemic Short BSG Results (Last 24 hours): 02/20/22 02/20/22 02/20/22 11:24 16:31 20:41 Glucose POC Glucose 161 H 138 H 130 H 02/20/22 02/21/22 02/21/22 23:35 03:55 05:17 Glucose 162 H POC Glucose 148 H 150 H 02/21/22 07:55 Glucose POC Glucose 163 H OUTPATIENT ANTIDIABETIC REGIMEN: * None * HbA1c = 6.9% (02/21/22) ASSESSMENT: 02/21: * Cindy received a total of 29 units of insulin yesterday (15 units Lantus + 14 units Novolog). She also received ~13 units from the IV insulin drip which was discontinued around 1000. * BSGs yesterday were well controlled: [phone] mg/dL. * Fasting BSG this morning was controlled at 163 mg/dL. Will continue with set AM basal dose with scaled HS basal dose for hyperglycemia. * Patient continues on Solumedrol 125 mg IV every 6 hours. No adjustment to Novolog necessary today. * SCr bumped today so will monitor for accumulation of insulin. Regular diet adjusted to carb count. No other changes in stressors. 02/20: * 76 y/o F admitted for pneumonia. Patient does not have a PMH significant for diabetes and was not on any anti-diabetic meds at home. HbA1c ordered. * She was on Prednisone taper prior to admission which most likely caused BSGs to trend up. * BSGs yesterday were [phone] mg/dl. Pharmacy was consulted for glycemic management. * Insulin drip was started yesterday evening. Patient received around 18 units from the insulin drip over 12 hrs. BSGs trended down to 116 mg/dl this AM. * Yesterday patient was started on Solu medrol IV 250 mg q6h. Dose decreased to IV 125 mg q6h today. * Basal Lantus 15 units ordered this AM and the insulin drip was discontinued. Pre-lunch BSG was 161 mg/dl. Patient resumed food intake with lunch today. Expect BSGs to trend up with diet and IV steroids around the clock. Basal dose scale added for HS based on BSG. Novolog continued based on stress of 3. PLAN FOR INPATIENT GLYCEMIC CONTROL: * Basal insulin * Lantus 15 units SQ this AM * Lantus 0-15 units SQ HS based on BSG * Bolus insulin * NovoLog per scale ACHS or Q6hrs while NPO. Added checks * Goal Range: Low 120 mg/dL - High 150 mg/dL * Correction Factor: 20 mg/dL/unit * Nutritional / Prandial insulin per carb ratio of 1 unit per 7 grams CHO consumed RECOMMENDATION FOR DISCHARGE: * HbA1c of 6.9% from today would confirm diagnosis of diabetes. However, given extensive hospitalizations recently with high dose glucocorticoid use, would defer any decision on starting antidiabetic medications to outpatient provider. 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
[2022-02-21] MEDS: LANTUS PER UNIT CHARGE SQ SCH (10:37)
--- NOTE | 2022-02-21 12:37 | Hospitalist Progress Note ---
Date of Service February 21, 2022 Assessment & Plan (1) Pneumothorax: Plan: small bilateral PTX with large amount of subcutaneous emphysema. Admitting attending discussed with [facility] pulmonology at patient's request. send images awaiting call back to consider transfer mild increase in LDH, fungitell is pending stopped Ofev, reduced steroids, on Bactrim to Cover PJP Azithromycin for atypical coverage -high flow nasal canulae, 100% 50L with persistent tachypnea (2) IPF (idiopathic pulmonary fibrosis): Plan: Acute on chronic respiratory failure with hypoxemia advanced. Follows with Dr. Gege Currie at [facility] and Sebastien Barr at [facility]. -IV steroids and treat possible infection -Negative procalcitonin Will expand antibiotic coverage to include PJP with Bactrim, Azitihro (3) Hypertension: Plan: BP in the ER was 160/70. - Continue home metoprolol prn labetolol and hydralazine (4) DVT prophylaxis: Plan: SCDs & heparin. Admission and Anticipated Discharge Date Admission Date: February 18, 2022 Subjective Pt and her are inquiring about [facility] where she does have part of her care. She feels better on high flow but still has air hunger and tachypnea, non productive cough. she has persistent significant subcutaneous emphysema Review of Systems Review of Systems: continues with Mild to moderate distress and fatigue no headache, no visual changes no speech or swallowing issues no chest pain, pressure or palpitations Significant dyspnea on exertion nonproductive coughing no abdominal pain, nausea or vomiting, diarrhea or constipation no dysuria, hematuria or frequency no focal joint pain or swelling no back pain, CVA tenderness or radicular pain slight increaase in Crepitance felt in the anterior chest mostly on the right no focal signs of weakness or numbness or altered sensation no complaints of anxiety or depression.. Physical Exam Physical Exam: The patient appeared chronic respiratory distress but stable Vital signs as documented. Head exam is normocephalic atraumatic Neck is with JVD, thyromegaly, or carotid bruits, crepitance or felt in the right anterior chest, maybe slightly worse Lungs are bilateral rales heard in all lung oneill Cardiac exam, Rhythm is regular.. No murmurs, rubs or gallops. Abdominal exam reveals normal bowel sounds, soft non tender, no masses Extremities are nonedematous and both pedal pulses are present Neurologic exam is alert and oriented, no focal loss of strength or sensation Skin is without bruises or rashes Psychologically is without concerns for anxiety or depression.. Results & Data Results & Data ([facility]) Vital Signs (Past 12 Hours) Vital Signs Temp Pulse Pulse Resp BP Pulse Ox 02/21/22 11:03 74 26 H 90 02/21/22 07:55 93 02/21/22 07:47 73 24 90 02/21/22 07:01 69 26 H 143/92 H 84 L 02/21/22 07:00 69 18 88 L 02/21/22 06:10 64 19 177/101 H 86 L 02/21/22 06:01 64 19 187/85 H 86 L 02/21/22 06:00 66 19 87 L 02/21/22 05:01 64 18 167/80 H 92 02/21/22 04:24 60 19 166/81 H 89 L 02/21/22 04:01 65 21 181/110 H 87 L 02/21/22 03:01 64 19 143/91 H 89 L 02/21/22 02:01 98.1 F 66 30 H 156/100 H 88 L 02/21/22 01:01 64 29 H 159/83 H 90 PG Care Time/CCT Total # of Minutes Spent Total Time Spent with Patient: Total time spent is greater than 50% in coordination of care (as documented) at patient's floor/unit and/or counseling patient: Coding Level of Care Code 53631 Subseq Hosp Care Lvl 3 Diagnoses Pneumothorax J93.9 IPF (idiopathic pulmonary fibrosis) J84.112 Hypertension I10 DVT prophylaxis Z29.9
[2022-02-21] MEDS: hydrALAZINE HCL 20 MG/ML VIAL IV PRN (16:49)
[2022-02-21] MEDS ORDERED: LANTUS PER UNIT CHARGE SQ SCH (21:00)
[2022-02-22] MEDS: methylPREDNISolone 125 MG in SYRINGE 0 ML IV SCH ×4 (05:32→23:32)
[2022-02-22] MEDS: SULFAMETHOXAZOLE/TRIMETHOPRIM DS 800/160MG TAB PO SCH ×4 (05:32→23:32)
[2022-02-22] MEDS: HEPARIN SOD 5,000 UNIT/0.5 ML VIAL SQ SCH ×3 (05:32→21:29)
[2022-02-22 06:19] LABS: Basophils # (auto) 0.01 K/uL (0-0.2); Basophils % (auto) 0.1 %; Hemoglobin 13.7 g/dL (12.0-16.0); Immature Granulocytes # (auto) 0.07 K/uL (0.00-0.02); Immature Granulocytes % (auto) 0.4 %; Lymphocytes # (auto) 0.56 K/uL (1.2-3.4); Lymphocytes % (auto) 3.3 %; Mean Corpuscular Hemoglobin 30.2 pg (25-34); Mean Corpuscular Hgb Conc 33.4 g/dL (32-36); Mean Corpuscular Volume 90.5 fL (80-100); Mean Platelet Volume 10.4 fL (7.4-10.4); Monocytes # (auto) 0.53 K/uL (0.11-0.59); Monocytes % (auto) 3.1 %; Neutrophils # (auto) 15.95 K/uL (1.4-6.5); Neutrophils % (auto) 93.1 %; Platelet Count 258 K/uL (130-400); RDW Standard Deviation 49.2 fL (36.4-46.3); Red Blood Count 4.53 M/uL (4.2-5.4); White Blood Count 17.12 K/uL (4.8-10.8)
[2022-02-22 06:21] LABS: Partial Thromboplastin Ratio 1.1; Partial Thromboplastin Time 29.9 Seconds (21.0-31.0)
[2022-02-22 06:41] LABS: BUN Creatinine Ratio 48.6 (10-20); Calcium 8.9 mg/dl (8.5-10.1); Creatinine Clr Calc Pharmacy 47.3 ml/min; Est GFR (African American) 56.7 ml/min; Est GFR (Non-African American) 48.9 ml/min; Magnesium 2.1 mg/dl (1.7-2.4); Phosphorus 4.6 mg/dl (2.5-4.9); Potassium 5.1 mmol/L (3.5-5.1)
--- NOTE | 2022-02-22 07:30 | XRay Report ---
XR chest 1V portable HISTORY: 76 years-old Female PTX with ILD follow-up study in a patient with pneumothoraces and pneum omediastinum COMPARISON: Chest radiograph 02/21/2022, chest CT 02/18/2022 TECHNIQUE: Portable AP view of the chest FINDINGS: Extensive subcutaneous emphysema is redemonstrated. Considerable amount of associated pneumomediastin um is also noted. Bilateral apical pneumothoraces redemonstrated measuring approximately 2.1 cm on th e right, previously 3.0 cm and 1.4 cm and the left, previously 0.9 cm. Cardiac silhouette is enlarged. Chronic interstitial lung disease. No large pleural effusion. Degener ative changes of the shoulders and spine. Surgical clips of the upper abdomen. IMPRESSION: 1. Extensive subcutaneous emphysema has progressed from the prior study. Pneumomediastinum and small apical pneumothoraces are redemonstrated. 2. Chronic interstitial lung disease. ACT 112: Negative or not required by law. The above report was generated using voice recognition software. It may contain grammatical, syntax o r spelling errors. Electronically signed by: Alfonzo Krishna M.D. 02/22/2022 7:29 AM
[2022-02-22] MEDS: INSULIN ASPART PER UNIT SC SCH ×4 (07:45→20:55)
--- NOTE | 2022-02-22 07:51 | Critical Care Progress Note ---
Date of Service February 22, 2022 Assessment & Plan (1) Pneumothorax: Plan: Impression: 76-year-old female with biopsy-proven UIP followed at [facility] maintained on nintedanib and prednisone with kandice several week course requiring hospitalization and escalation of steroids presenting now with secondary pneumothorax with extensive subcutaneous emphysema and hypoxemic respiratory failure. 24-hour events:Patient continues to be on high flow nasal cannula. She was initiated on high-dose Bactrim for potential PJP. She has been weaned off the insulin drip. Recommendations: 1. Neurologic: Pain issues well-controlled on current regimen. Continue to follow clinically. 2. Respiratory: Etiology of her pneumothorax is unclear. This could represent rapid progression of her underlying interstitial lung disease although underlying infection would also be a possibility. Her procalcitonin was negative, however LDH was elevated and galactomannan pending. Empirically treating for PJP. Ideally would like to pursue bronchoscopy however given the patient's tenuous respiratory status and underlying pneumothorax, think the risks outweigh the benefits for now. We will have a discussion with the patient and her family in regards of doing a thoracostomy tube to help relieve her shortness of breath. Risk and benefits will be discussed with the patient and family extensively. Continue Solu-Medrol at 125 mg IV every 6. Holding nintedanib. Try and avoid positive airway pressure if possible. Continue to follow subcutaneous emphysema, overall increased today. May require venting if becomes problematic and if worsen.. If the patient develops significant bronchopleural fistula, transfer to higher level of care may be appropriate. 3. Cardiovascular: Continue antihypertensives. 4. GI: No current issues. Continue current diet as tolerated. 5. Renal: ICU electrolyte replacement protocol. Patient has acute kidney injury likely secondary to prerenal cause such as decreased perfusion in the setting of poor oral intake. BUN/creatinine ratio greater than 20. Intake recorded over the past 24 hours of 390 mL. We will add 1bag of NSS at 125 mL/h and recheck creatinine in the morning. Continue to monitor. Elevated creatinine may also be secondary to Bactrim use, however, this would be an intrarenal cause of DARRELL. 6. ID: Day #4 azithromycin day #3 high-dose Bactrim. Procalcitonin negative. Treating for presumptive PJP. On steroids. 7. Endocrine: Continue glycemic protocol. Off insulin infusion for now. BSGs are acceptable. 8: Heme-onc: No current issues. DVT proph with SQ heparin Patient is DO NOT INTUBATE. (2) Hypoxia: (3) IPF (idiopathic pulmonary fibrosis): (4) Subcutaneous emphysema: Plan: Patient seen and examined. EMR reviewed. Images independently reviewed. Discussed on multidisciplinary rounds with bedside critical care nurse and multidisciplinary team as well as with family practice resident. Agree with assessment plan as noted. Unfortunately the patient has not shown any significant improvement to this point and may be slightly worse. Her pneumothoraces tend to wax and wane but the subcutaneous emphysema is slightly worse. Discussed with patient at bedside as well as and son by phone potential for tube thoracostomy. This may alleviate the pneumothorax and some of the subcutaneous emphysema but also runs the risk of potentially worsening the bronchopleural fistula and causing additional damage to the lung. They have taken it under advisement and wish to discuss options prior to consideration of any additional procedures. We will wait to hear back from them. We also discussed potential subcutaneous venting to see if we can alleviate some of the subcutaneous emphysema. Continue Bactrim. Galactomannan is pending. Continue steroids at current dose. Agree with limited IV fluids to see if we can improve the patient's kidney function although this may be secondary to high-dose Bactrim. Overall prognosis is guarded. This was discussed extensively with the patient as well as with her and son. Its possible that the patient may or not respond to the above interventions in which case transition to a more palliative approach may be appropriate. Patient is critically ill at this point time with significant possibility of musa th or clinical deterioration. A total of 50 minutes in critical care time was spent with the patient and management of life-threatening illness up to this point Admission and Anticipated Discharge Date Admission Date: February 18, 2022 Subjective Patient seen at bedside this morning. No acute events reported overnight. Patient did require a dose of hydralazine last night at 1700 hrs. for elevated blood pressures. Patient reports that her breathing continues to become more difficult and seems to be becoming fatigued. Oxygen saturations continue to maintain above 90%, however, patient is visibly tachypneic. Reports she was able to sleep until 3:00 in the morning. [facility] reportedly stated yesterday per patient history that they do not feel that there is any advancement of care that they could offer at this time and that we doing what they would do. Otherwise patient not in any pain or discomfort. No other complaints at this time. Review of Systems Review of Systems: All systems reviewed & are unremarkable except as noted in HPI & below Physical Exam Constitutional: WD/WN, vitals as above Neck: trachea midline, no thyromegaly Respiratory: + tachypneic and symmetric chest movement Auscultation: + diminished lung sounds (at the apices b/l) and + crackles Cardiovascular: RRR, no murmur, no edema Gastrointestinal (Abdomen): normal bowel sounds, soft, nontender, no hepatosplenomegaly Musculoskeletal: Head/Neck/Chest: normocephalic and head atraumatic Skin: no rashes, warm and dry Neurologic: moves all extremities Psychiatric: Orientation: oriented x 3 Lymphatic: no cervical lymphadenopathy Results & Data Results & Data ([facility]) Vital Signs (Past 12 Hours) Vital Signs Temp Pulse Pulse Resp BP Pulse Ox 02/22/22 07:00 70 02/22/22 06:17 65 20 144/80 H 91 02/22/22 06:01 66 20 166/102 H 91 02/22/22 06:00 66 26 H 92 02/22/22 05:01 63 19 153/94 H 91 02/22/22 05:00 62 24 92 02/22/22 04:01 75 22 158/95 H 92 02/22/22 04:00 60 24 94 02/22/22 03:30 36.7 C 02/22/22 03:27 63 15 94 02/22/22 03:03 62 19 154/90 H 90 02/22/22 03:00 64 18 93 02/22/22 02:00 60 17 93 02/22/22 01:35 58 L 17 153/93 H 91 02/22/22 01:01 67 20 154/90 H 92 02/22/22 01:00 64 20 93 02/22/22 00:00 58 L 18 150/87 H 94 02/21/22 23:13 58 L 18 92 02/21/22 23:01 60 16 142/79 H 91 02/21/22 23:00 60 17 93 02/21/22 22:01 59 L 16 117/90 91 02/21/22 22:00 59 L 16 92 02/21/22 21:00 67 39 H 90 02/21/22 20:28 36.6 C 02/21/22 20:09 63 18 91 02/21/22 20:00 64 20 91 (1) Pneumothorax Pneumothorax type: spontaneous, secondary Qualified Code(s): J93.12 - Secondary spontaneous pneumothorax
[2022-02-22] MEDS: AZITHROMYCIN 250 MG TAB PO SCH (08:51)
[2022-02-22] MEDS: GABAPENTIN 300 MG CAP PO SCH (08:52)
[2022-02-22] MEDS: FLUoxetine HCL 20 MG CAP PO SCH (08:52)
[2022-02-22] MEDS: LIDOCAINE 5% 1 PATCH TD SCH (08:54)
[2022-02-22] MEDS: METOPROLOL SUCC 50MG EXT REL TAB PO SCH ×2 (08:54→20:57)
[2022-02-22] MEDS: PANTOprazole 40 MG TAB PO SCH ×2 (08:55→20:57)
[2022-02-22] MEDS: LANTUS PER UNIT CHARGE SQ SCH (08:58)
[2022-02-22] MEDS ORDERED: SODIUM CHLORIDE 0.9% 1000ML 1,000 ML IV SCH (10:00)
--- NOTE | 2022-02-22 10:10 | Billing Data ---
Date of Service February 22, 2022 Coding Level of Care Code Critical Care 1st - mins
--- NOTE | 2022-02-22 10:18 | Pharmacy Report ---
Pharmacy Glycemic Short Note 2 - Date of Service February 22, 2022 - Glycemic Short BSG Results (Last 24 hours): 02/21/22 02/21/22 02/21/22 11:37 16:24 21:03 Glucose POC Glucose 209 H 128 H 146 H 02/22/22 02/22/22 05:42 07:30 Glucose 150 H POC Glucose 149 H OUTPATIENT ANTIDIABETIC REGIMEN: * None * HbA1c = 6.9% (02/21/22) ASSESSMENT: 02/22: * Patient received a total of 24 units of insulin yesterday (15 units Lantus + 9 units Novolog). BSGs acceptable: 316-257-838-146 mg/dL. * Fasting BSG improved to 149 mg/dL this AM. Will d/c PM Lantus order and continue with AM only. * No changes in stressors today. Remains on SoluMedrol 125 mg IV every 6 hours. Postprandials acceptable. Continue Novolog. 02/21: * Cindy received a total of 29 units of insulin yesterday (15 units Lantus + 14 units Novolog). She also received ~13 units from the IV insulin drip which was discontinued around 1000. * BSGs yesterday were well controlled: [phone] mg/dL. * Fasting BSG this morning was controlled at 163 mg/dL. Will continue with set AM basal dose with scaled HS basal dose for hyperglycemia. * Patient continues on Solumedrol 125 mg IV every 6 hours. No adjustment to Novolog necessary today. * SCr bumped today so will monitor for accumulation of insulin. Regular diet adjusted to carb count. No other changes in stressors. PLAN FOR INPATIENT GLYCEMIC CONTROL: * Basal insulin * Lantus 15 units SQ this AM * Bolus insulin * NovoLog per scale ACHS or Q6hrs while NPO * Goal Range: Low 120 mg/dL - High 150 mg/dL * Correction Factor: 20 mg/dL/unit * Nutritional / Prandial insulin per carb ratio of 1 unit per 7 grams CHO consumed RECOMMENDATION FOR DISCHARGE: * HbA1c of 6.9% from today would confirm diagnosis of diabetes. However, given extensive hospitalizations recently with high dose glucocorticoid use, would defer any decision on starting antidiabetic medications to outpatient provider. Patient may benefit from antidiabetic medications if fci glucocorticoid use is in the treatment plan.
[2022-02-22] MEDS ORDERED: LIDOCAINE 1% LOCAL 20 ML VIAL ONE (11:15)
[2022-02-22] MEDS ORDERED: MIDAZOLAM HCL 1 MG/ML 2ML VIAL ONE (11:15)
--- NOTE | 2022-02-22 12:16 | Procedure Note ---
Procedure Note Date of Service February 22, 2022 Note Procedure: Right-sided chest tube. Indication: Pneumothorax with subcutaneous emphysema Consent: Risks and benefits were explained to the patient. Consent was verified and timeout performed prior to commencement of the procedure. Sedation: 50 mcg fentanyl, 2 mg Versed, 10 cc 1% lidocaine without epinephrine. Proceduralist: Dr. 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 Risks and benefits of continued observation versus chest tube management were discussed with the patient and family. After careful consideration they elected to proceed. We discussed risks including additional damage to the lung, potential worsening of the bronchopleural fistula, as well as pain bleeding and infection. A timeout was performed. Appropriate radiographic studies were reviewed prior to commencement of the procedure. Patient was placed in the right side up decubitus position. An area in the posterior axillary line was cleaned and prepped using chlorhexidine which was allowed to fully dry. A sterile field was established. 10 cc of 1% lidocaine were used to anesthetize the subcutaneous tissues down to the rib and the intercostal space. After anesthesia was achieved, a 10 blade scalpel was used to make a 2cm incision in the posterior axillary line lateral to the inferior mammary crease. Digital palpation was used to bluntly dissect the tissues down until I was able to palpate the rib. Using an 18-gauge needle, the pleural space was accessed with aspiration of air. A wire was passed through the needle and the needle removed leaving the wire in place. Serial dilators were passed over the wire to dilate up the tract. During this procedure, the wire kinked and it was unclear whether the dilators were passing into the pleural space or advancing into the subcutaneous tissues. Again blunt dissection with my finger was conducted. I was able to palpate the ribs in the intercostal space. At that point time I used a Amairani clamp to enter the pleural space. Using my finger I was able to dissect around and not palpate any adherent lung. Once the tract was dissected, a 16 Bah[place]ian chest tube was placed into the pleural space with direction from my finger. The tube was attached to suction. Misting titling and bubbling were detected. The tube was secured using two 2-0 silk sutures. An occlusive dressing was applied using Vaseline impregnated gauze. The tube was attached to 20 cm of wall suction. Chest x-ray was ordered. Estimated blood loss: 5 mL Coding CPT Codes Pulmonary/Thoracic - Pulmonary and Thoracic: 36950 Tube thoracostomy ([id number]) [facility] Procedure Codes (Charges) Pulmonary/Thoracic Procedure 1: Pulmonary and Thoracic: 48240 Tube thoracostomy
[2022-02-22] MEDS ORDERED: MIDAZOLAM HCL 1 MG/ML 2ML VIAL IV STA (12:21)
[2022-02-22] MEDS ORDERED: LIDOCAINE 1% LOCAL 20 ML VIAL INJ ONE (12:23)
[2022-02-22] MEDS ORDERED: fentaNYL citrate 100 MCG/2 ML VIAL IV STA (12:23)
--- NOTE | 2022-02-22 12:32 | XRay Report ---
SINGLE VIEW CHEST CLINICAL HISTORY: Pneumothorax. Right-sided chest tube placement. FINDINGS: An AP, portable, upright chest radiograph is compared to study performed earlier the same d ay 02/22/2022 and correlated with chest CT dated 02/18/2022.. The cardiomediastinal silhouette is unremar kable. Changes of chronic interstitial lung disease are similar to previous. There is no definite sup erimposed airspace consolidation or large pleural effusion identified. A right-sided chest tube has b een placed. Visual pneumothoraces are difficult to delineated due to overlying subcutaneous gas. Ther e is a small to moderate residual right-sided pneumothorax with approximately 2 cm of apical pleural separation. There is a persistent left pneumothorax with approximately 1.2 cm of apical pleural separ ation. The skeletal structures are osteopenic. The bony thorax is grossly intact. Extensive subcutane ous cutaneous emphysema is seen in the lower neck and throughout the chest wall. Surgical clips are noted in the upper abdomen. IMPRESSION: 1. A right-sided chest tube has been placed as above. 2. Residual right larger than left bilateral pneumothoraces as above. 3. Subadjacent emphysema. ACT 112: Negative or not required by law. Electronically signed by: Arslan Angelo M.D. 02/22/2022 12:29 PM
--- NOTE | 2022-02-22 13:55 | Hospitalist Progress Note ---
Date of Service February 22, 2022 Assessment & Plan (1) Pneumothorax: Plan: Cindy is a 76-year-old female with a history of idiopathic pulmonary fibrosis who presented with hypoxemic respiratory failure and is found to have pneumothorax with subcu emphysema. AHRF w/ Pneumothorax No clinical improvement, worsened subcutaneous emphysema. Remains under ICU care, guarded prognosis CXR 02/22: Restive subcu emphysema, pneumomediastinum and apical pneumothoraces redemonstrated. Interval increase in size. Unclear cause, bronchoscopy limited by risks with respiratory status Thoracostomy tube placed 02/22. Solu-Medrol 125 mg IV every 6 hours per ICU/pulm. Nintedanib held. Avoid PPV. Case has been reviewed with [facility] pul[place]. Patient not excepted for transfer as plan of care would be the same, and patient is at significant risk of decompensation in route to oxygen requirements. PJP coverage with Bactrim (started 02/19), atypical coverage with azithromycin. At risk given hx steroid treatment/immunosuppressive's with IPF Leukocytosis continued in the setting of steroid use. NLR 28 - high flow nasal canulae, 100% 50L Fungitell pending Bio fire negative (2) IPF (idiopathic pulmonary fibrosis): Plan: -Acute on chronic respiratory failure with hypoxemia -advanced. Follows with Dr. Gege Currie at [facility] and Dr. Barr at [facility]. -Abx as noted -Negative procalcitonin (3) Hypertension: Plan: 160/70 on admission Home metoprolol succinate 50 mg p.o. twice daily continued Adequate blood pressure control today (4) DVT prophylaxis: Plan: SCDs & heparin. (5) DARRELL (acute kidney injury): Plan: - Creatinine elevation from baseline 0.6-11.1. Creatinine clearance 47 Fluids per ICU, following as? 09/21 Bactrim Plan: DNR/DNI Admission and Anticipated Discharge Date Admission Date: February 18, 2022 Subjective Cindy seen at the bedside this morning. Is aware that she has had increase in size of her pneumothorax. Continues to be short of breath, though she is wor robert hard to breathe. Denies chest pain or chest pressure. Did discuss chest tube placement with ICU this morning, pending call to her and tube placement for progressive pneumothorax. No questions at bedside. Denies fever, chills, sweats, chest pain. Endorses cough, nonproductive. Review of Systems Review of Systems: All systems reviewed & are unremarkable except as noted in Subjective Physical Exam Physical Exam: General: A&O. Appears fatigued, appears ill but nontoxic. HEENT: Atraumatic, normocephalic. Vision and hearing grossly intact. Pulm: Diminished, tachypneic. Patient appears fatigued, mild accessory muscle use. Bibasilar crackles are present.right upper chest with overlying subcutaneous emphysema. Cardiac: RRR, -mrg. Radial pulses intact and symmetrical. Abdominal: Nontender, nondistended, soft. BS present. Results & Data Results & Data ([facility]) Vital Signs (Past 12 Hours) Vital Signs Temp Pulse Pulse Resp BP Pulse Ox 02/22/22 06:17 65 20 144/80 H 91 02/22/22 06:01 66 20 166/102 H 91 02/22/22 06:00 66 26 H 92 02/22/22 05:01 63 19 153/94 H 91 02/22/22 05:00 62 24 92 02/22/22 04:01 75 22 158/95 H 92 02/22/22 04:00 60 24 94 02/22/22 03:30 36.7 C 02/22/22 03:27 63 15 94 02/22/22 03:03 62 19 154/90 H 90 02/22/22 03:00 64 18 93 02/22/22 02:00 60 17 93 02/22/22 01:35 58 L 17 153/93 H 91 02/22/22 01:01 67 20 154/90 H 92 02/22/22 01:00 64 20 93 02/22/22 00:00 58 L 18 150/87 H 94 02/21/22 23:13 58 L 18 92 02/21/22 23:01 60 16 142/79 H 91 02/21/22 23:00 60 17 93 02/21/22 22:01 59 L 16 117/90 91 02/21/22 22:00 59 L 16 92 02/21/22 21:00 67 39 H 90 02/21/22 20:28 36.6 C 02/21/22 20:09 63 18 91 02/21/22 20:00 64 20 91 PG Care Time/CCT Total # of Minutes Spent Total Time Spent with Patient: Total time spent is greater than 50% in coordination of care (as documented) at patient's floor/unit and/or counseling patient: Coding Level of Care Code 94051 Subseq Hosp Care Lvl 2 Diagnoses Pneumothorax J93.9 IPF (idiopathic pulmonary fibrosis) J84.112 Hypertension I10 DVT prophylaxis Z29.9 DARRELL (acute kidney injury) N17.9
[2022-02-22 21:44] LABS: Hematocrit (blood only) 39.7 % (34.1-44.9); Hemoglobin 13.4 g/dl (12.0-16.0); Mean Corpuscular Hemoglobin 30.5 pg (25.0-34.0); Mean Corpuscular Hgb Conc 33.8 g/dL (32.0-36.0); Mean Corpuscular Volume 90.2 fL (80.0-100.0); Mean Platelet Volume 10.4 fL (9.4-12.3); Platelet Count 202 K/uL (130-400)
[2022-02-22 22:13] LABS: Fibrinogen 400 mg/dl (184-400); INR 1.9 (0.9-1.1); Partial Thromboplastin Ratio 1.1; Partial Thromboplastin Time 29.6 Seconds (21.0-31.0); Prothrombin Time 19.4 Seconds (9.0-12.0)
--- NOTE | 2022-02-22 22:28 | Communication Note ---
Date of Service: February 22, 2022 Was notified by the RN that the patient had bleeding from around the chest tube site. On examination the dressing was saturated with blood and there was a s ilhouette of bloody drainage of about a fluid on the bed behind the patient. With removal of the dressing it was noted to have a large clot underneath but appeared to still be actively bleeding around the site. There was a small amount of blood noted in the tube itself as well. Chest x-ray was taken and no obvious hemothorax seen. It appears that the source of bleeding is superficial and coming from the insertion site of the chest tube itself. I did take down the old dressing and reinforced with a pressure dressing. This appears to be working. Coags and CBC were collected. Hemoglobin is stable and platelet count normal. INR is mildly elevated at 1.9 and fibrinogen normal. Currently no indication for transfusion and will monitor for now. May consider adding additional suture around the site if bleeding continues. Coding Level of Care Code None
[2022-02-23] MEDS: hydrALAZINE HCL 20 MG/ML VIAL IV PRN (05:03)
[2022-02-23] MEDS: methylPREDNISolone 125 MG in SYRINGE 0 ML IV SCH ×3 (05:50→18:12)
[2022-02-23] MEDS: SULFAMETHOXAZOLE/TRIMETHOPRIM DS 800/160MG TAB PO SCH ×3 (05:50→18:12)
[2022-02-23 06:11] LABS: Hematocrit (blood only) 38.3 % (34.1-44.9); Hemoglobin 13.1 g/dl (12.0-16.0); Mean Corpuscular Hemoglobin 30.3 pg (25.0-34.0); Mean Corpuscular Hgb Conc 34.2 g/dL (32.0-36.0); Mean Corpuscular Volume 88.7 fL (80.0-100.0); Mean Platelet Volume 10.7 fL (9.4-12.3); Platelet Count 212 K/uL (130-400); RDW Coefficient of Variation 14.9 % (11.5-14.5); RDW Standard Deviation 47.3 fL (36.4-46.3); Red Blood Count 4.32 M/uL (3.93-5.22); White Blood Count 16.45 K/ul (4.8-10.8)
[2022-02-23 06:21] LABS: BUN Creatinine Ratio 55.9 (10-20); Calcium 8.7 mg/dl (8.5-10.1); Creatinine Clr Calc Pharmacy 51.5 ml/min; Est GFR (African American) 62.8 ml/min; Est GFR (Non-African American) 54.1 ml/min; Magnesium 2.3 mg/dl (1.7-2.4); Phosphorus 4.2 mg/dl (2.5-4.9); Potassium 5.8 mmol/L (3.5-5.1)
--- NOTE | 2022-02-23 07:23 | XRay Report ---
XR chest 1V portable HISTORY: 76 years-old Female pneumothorax follow-up study in a patient with pneumothoraces COMPARISON: Chest radiograph of same day at 9:49 PM and also 02/22/2022 at 12:17 PM TECHNIQUE: Portable AP view of the chest FINDINGS: A right-sided chest tube is redemonstrated with distal tip projected over the right hilum. Extensive subcutaneous emphysema with pneumomediastinum redemonstrated. Tiny residual left apical pneumothorax is suspected with a few millimeters of pleural separation. There is decreased size of the right apica l pneumothorax, now with pleural separation of 1.4 cm (previously 2.1 cm). Cardiomediastinal and hilar silhouettes are unchanged. Chronic interstitial lung disease redemonstrat ed. No large pleural effusion. Right hemidiaphragmatic elevation. Degenerative changes of the shoulde rs and spine. IMPRESSION: 1. Unchanged positioning of the right-sided chest tube. 2. Decreased size of the small apical pneumothoraces. 3. Extensive subcutaneous emphysema with pneumomediastinum redemonstrated. ACT 112: Negative or not required by law. The above report was generated using voice recognition software. It may contain grammatical, syntax o r spelling errors. Electronically signed by: Alfonzo Krishna M.D. 02/23/2022 7:22 AM
[2022-02-23] MEDS: INSULIN ASPART PER UNIT SC SCH ×3 (07:28→16:56)
--- NOTE | 2022-02-23 07:38 | XRay Report ---
XR chest 1V portable HISTORY: 76 years-old Female hypoxia acute hypoxia COMPARISON: Chest radiograph 02/22/2022 at 12:17 PM TECHNIQUE: Portable AP view of the chest FINDINGS: A right-sided chest tube is redemonstrated with distal tip projected over the right hilum. Extensive subcutaneous emphysema with pneumomediastinum redemonstrated. Tiny residual left apical pneumothorax is suspected with a few millimeters of pleural separation. There is decreased size of the right apica l pneumothorax with pleural separation of approximately 8 mm laterally. The pleural line at the right lung apex is difficult to visualize. The cardiomediastinal and hilar silhouettes are unchanged. 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 No large pleural effusion. Right hemidiaphragmatic elev ation. Degenerative changes of the shoulders and spine. IMPRESSION: 1. Unchanged positioning of the right-sided chest tube. 2. Decreased size of the small apical pneumothoraces. 3. Extensive subcutaneous emphysema with pneumomediastinum redemonstrated. ACT 112: Negative or not required by law. The above report was generated using voice recognition software. It may contain grammatical, syntax o r spelling errors. Electronically signed by: Alfonzo Krishna M.D. 02/23/2022 7:35 AM
[2022-02-23] MEDS: AZITHROMYCIN 250 MG TAB PO SCH (08:39)
--- NOTE | 2022-02-23 08:39 | Critical Care Progress Note ---
Date of Service February 23, 2022 Assessment & Plan (1) Pneumothorax: Plan: Impression: 76-year-old female with biopsy-proven UIP followed at [facility] maintained on nintedanib and prednisone with kandice several week course requiring hospitalization and escalation of steroids presenting now with secondary pneumothorax with extensive subcutaneous emphysema and hypoxemic respiratory failure. 24-hour events:Patient continues to be on high flow nasal cannula. She had a chest tube placed yesterday which has improved her pneumothoraces size as well as decreased her subcutaneous emphysema. Recommendations: 1. Neurologic: Pain issues well-controlled on current regimen. Continue to follow clinically. 2. Respiratory: Etiology of her pneumothorax is unclear. This could represent rapid progression of her underlying interstitial lung disease although underlying infection would also be a possibility. Her procalcitonin was negative, however LDH was elevated and galactomannan pending. Empirically treating for PJP. Thoracostomy performed yesterday with improvement of both bilateral pneumothoraces size as well as improvement in subcutaneous emphysema. Possibly some mild improvement in patient's shortness of breath as well. Continue oxygen supplementation via high flow nasal cannula and de-escalate as tolerated with an oxygen saturation goal of greater than 90%. Continue Solu-Medrol at 125 mg IV every 6 hours for chronic interstitial lung disease Holding nintedanib. Try and avoid positive airway pressure if possible. Continue to follow subcutaneous emphysema, overall improved today. May require venting if becomes problematic and if worsen. Depending on conversation later today, may transition to a comfort measure option in which case patient will receive medication to help improve her discomfort. 3. Cardiovascular: Continue antihypertensives. 4. GI: No current issues. Continue current diet as tolerated. 5. Renal: ICU electrolyte replacement protocol. Creatinine improved today to 1.02. Potassium increased to 5.8 today, will give a small dose of Lasix and recheck potassium in the afternoon. 6. ID: Day #5 azithromycin day #4 high-dose Bactrim. Procalcitonin negative. Treating for presumptive PJP. On steroids. DC azithromycin after today 7. Endocrine: Continue glycemic protocol. Off insulin infusion for now. BSGs are acceptable. 8: Heme-onc: No current issues. DVT proph with SQ heparin Patient is DO NOT INTUBATE. (2) Hypoxia: (3) IPF (idiopathic pulmonary fibrosis): (4) Subcutaneous emphysema: Admission and Anticipated Discharge Date Admission Date: February 18, 2022 Supervising Physician Co-Signing Physician Notes Patient seen and examined. EMR reviewed. Discussed with family practice resident and on multidisciplinary rounds. Agree with assessment plan as noted. The patient is clinically stagnant at this point time. The dressing to her chest tube was taken down. There was no evidence of active bleeding. The tube was redressed. It demonstrates titling but no significant air leak. The tube was placed to waterseal. In my conversations at bedside with Cindy, she expresses that she just wants this to be over. She understands that without continued therapy would likely r esult in her . She states she is tired of fighting. She requested her family to come in. I met with the , daughter, and granddaughter at bedside. The son is apparently in route. Cindy was able to clearly elucidate her wishes to not pursue life-sustaining therapy. She wants to focus on more of a palliative approach. We discussed what palliative care would look like. She expressed understanding but is awaiting the arrival of other family members. Depending on discussions, we may transition to full palliative care later today and potentially consider discontinuation of the chest tube. I advised Cindy and the family that I am unclear if this represents a reversible situation however recovery would likely be prolonged and it would be unlikely that we would get the patient back to the same degree of functional status that she had before becoming ill several weeks ago. They expressed understanding. They have been in communication with Sita and confirmed that their plan of care would be no different than ours. We briefly touched on hospice options including potential home hospice which may be a consideration. Depending on patient's response, may formally engage palliative care Total of 79 minutes critical care time was spent in evaluation management and stabilization of this critically ill patient including end-of-life issues. Subjective Patient seen at bedside this morning. Yesterday patient did have thoracostomy performed chest tube placement. Overnight patient did have bleeding at the insertion site and throwing of clots from the site, but overall seem to be superficial. Today patient reports maybe mild improvement in her breathing and has noted having episodes where her breathing has been able to slow down and has been able to sleep more. Overall though she feels she is still having a lot of difficulty with breathing. Feels tired. Continues to have decreased appetite without much oral intake. Otherwise does not have any pain. Patient would like to have a comfort discussion with us and her family as she feels she does not want to pursue this treatment anymore. No other complaints at this time. Review of Systems Review of Systems: All systems reviewed & are unremarkable except as noted in HPI & below Physical Exam Constitutional: WD/WN, vitals as above Neck: trachea midline, no thyromegaly Respiratory: symmetric chest movement Auscultation: + crackles Cardiovascular: RRR, no murmur, no edema Gastrointestinal (Abdomen): normal bowel sounds, soft, nontender, no hepatosplenomegaly Musculoskeletal: Head/Neck/Chest: normocephalic and head atraumatic Skin: no rashes, warm and dry (Subcutaneous emphysema still present but much improved from yesterday.) Neurologic: moves all extremities Psychiatric: Orientation: oriented x 3 Lymphatic: no cervical lymphadenopathy Results & Data Results & Data ([facility]) Vital Signs (Past 12 Hours) Vital Signs Temp Pulse Pulse Resp BP Pulse Ox 02/23/22 08:00 78 02/23/22 07:10 74 22 89 L 02/23/22 07:01 76 22 169/102 H 88 L 02/23/22 07:00 75 25 H 86 L 02/23/22 06:31 72 22 151/80 H 87 L 02/23/22 06:00 80 21 178/100 H 85 L 02/23/22 05:30 75 27 H 153/93 H 88 L 02/23/22 05:01 62 27 H 155/108 H 90 02/23/22 05:00 63 19 92 02/23/22 04:56 65 20 166/114 H 91 02/23/22 04:31 64 23 145/117 H 90 02/23/22 04:16 64 18 166/99 H 91 02/23/22 04:15 63 24 89 L 02/23/22 04:14 64 23 91 02/23/22 04:13 65 22 91 02/23/22 04:12 66 22 90 02/23/22 04:11 67 23 90 02/23/22 04:10 75 25 H 89 L 02/23/22 04:09 78 24 86 L 02/23/22 04:08 83 28 H 86 L 02/23/22 04:07 71 25 H 91 02/23/22 04:06 65 36 H 89 L 02/23/22 04:05 67 32 H 89 L 02/23/22 04:04 67 32 H 87 L 02/23/22 04:03 67 23 86 L 02/23/22 04:02 77 30 H 172/100 H 84 L 02/23/22 04:00 71 26 H 88 L 02/23/22 03:46 66 16 90 02/23/22 03:31 66 22 167/85 H 90 02/23/22 03:01 66 26 H 168/91 H 90 02/23/22 03:00 65 31 H 90 02/23/22 02:31 61 18 140/76 90 02/23/22 02:00 60 28 H 90 02/23/22 01:31 68 20 142/78 H 95 02/23/22 01:01 61 22 122/87 92 02/23/22 01:00 60 19 92 02/23/22 00:46 36.6 C 02/23/22 00:36 62 21 172/88 H 89 L 02/23/22 00:00 64 18 89 L 02/22/22 23:30 60 16 151/108 H 90 02/22/22 23:18 59 L 02/22/22 23:00 59 L 15 118/79 91 02/22/22 22:35 57 L 16 91 02/22/22 22:31 58 L 16 125/81 87 L 02/22/22 22:14 58 L 20 125/82 90 02/22/22 22:02 61 23 139/113 H 89 L 02/22/22 22:00 61 26 H 87 L 02/22/22 21:30 66 21 158/109 H 86 L 02/22/22 21:00 66 21 158/86 H 85 L Critical Care Time Total Critical Care Time: 79 79 (1) Pneumothorax Pneumothorax type: spontaneous, secondary Qualified Code(s): J93.12 - Secondary spontaneous pneumothorax
[2022-02-23] MEDS: FLUoxetine HCL 20 MG CAP PO SCH (08:40)
[2022-02-23] MEDS: GABAPENTIN 300 MG CAP PO SCH (08:40)
[2022-02-23] MEDS: LANTUS PER UNIT CHARGE SQ SCH (08:41)
[2022-02-23] MEDS: LIDOCAINE 5% 1 PATCH TD SCH (08:42)
[2022-02-23] MEDS: METOPROLOL SUCC 50MG EXT REL TAB PO SCH ×2 (08:42→22:15)
[2022-02-23] MEDS: PANTOprazole 40 MG TAB PO SCH ×2 (08:42→22:16)
[2022-02-23] MEDS ORDERED: FUROSEMIDE INJ 20 MG/2 ML VIAL IV ONE (09:40)
--- NOTE | 2022-02-23 11:53 | Billing Data ---
Date of Service February 23, 2022 Coding Level of Care Code Critical Care ea addt'l 30 min Time Spent (min) 79 Comment [id number] and [id number]
--- NOTE | 2022-02-23 13:27 | Pharmacy Report ---
Pharmacy Glycemic Short Note 2 - Date of Service February 23, 2022 - Glycemic Short BSG Results (Last 24 hours): 02/22/22 02/22/22 02/23/22 16:03 20:45 05:34 Glucose 154 H POC Glucose 89 192 H 02/23/22 02/23/22 07:20 11:11 Glucose POC Glucose 198 H 210 H OUTPATIENT ANTIDIABETIC REGIMEN: * None * HbA1c = 6.9% (02/21/22) ASSESSMENT: 02/23: * Patient received 21 units of insulin yesterday (15 units basal + 6 units of Novolog). BSGs are trending upward despite minimal PO intake (likely steroid induced); 192-198-210 mg/dL. * Continues on SoluMedrol 125mg IV q6h, and minimal PO intake since 02/21. * Given elevated BSGs likely steroid induced, plan to tighten Novolog correction. No change to basal for today. 02/22: * Patient received a total of 24 units of insulin yesterday (15 units Lantus + 9 units Novolog). BSGs acceptable: 276-204-216-146 mg/dL. * Fasting BSG improved to 149 mg/dL this AM. Will d/c PM Lantus order and continue with AM only. * No changes in stressors today. Remains on SoluMedrol 125 mg IV every 6 hours. Postprandials acceptable. Continue Novolog. 02/21: * Cindy received a total of 29 units of insulin yesterday (15 units Lantus + 14 units Novolog). She also received ~13 units from the IV insulin drip which was discontinued around 1000. * BSGs yesterday were well controlled: [phone] mg/dL. * Fasting BSG this morning was controlled at 163 mg/dL. Will continue with set AM basal dose with scaled HS basal dose for hyperglycemia. * Patient continues on Solumedrol 125 mg IV every 6 hours. No adjustment to Novolog necessary today. * SCr bumped today so will monitor for accumulation of insulin. Regular diet adjusted to carb count. No other changes in stressors. PLAN FOR INPATIENT GLYCEMIC CONTROL: * Basal insulin * Lantus 15 units SQ qAM * Bolus insulin * NovoLog per scale ACHS or Q6hrs while NPO * Goal Range: Low 120 mg/dL - High 140 mg/dL * Correction Factor: 15 mg/dL/unit * Nutritional / Prandial insulin per carb ratio of 1 unit per 7 grams CHO consumed RECOMMENDATION FOR DISCHARGE: * HbA1c of 6.9% from today would confirm diagnosis of diabetes. However, given extensive hospitalizations recently with high dose glucocorticoid use, would defer any decision on starting antidiabetic medications to outpatient provider. Patient may benefit from antidiabetic medications if retirement gluc ocorticoid use is in the treatment plan.
--- NOTE | 2022-02-23 14:13 | Hospitalist Progress Note ---
Date of Service February 23, 2022 Assessment & Plan (1) Pneumothorax: Plan: Cindy is a 76-year-old female with a history of idiopathic pulmonary fibrosis who presented with hypoxemic respiratory failure and is found to have pneumothorax with subcu emphysema. Comfort measures only 02/23 patient expressed a desire to move to palliative approach and focus on comfort measures only. Would like to continue chest tube for comfort as thinks this is helping a little, antibiotics, and oxygen for comfort over the next 24 hours while family is visiting. Otherwise okay with discontinuing lab draws and other monitoring. Would consider transition to home hospice if she were to be able to be weaned off of high flow, however she recognizes her prognosis is guarding and may pass in the hospital. Family seen and counseling provided at bedside, are in agreement with Cindy's decision. SPARMAKER orders entered, may continue Bactrim, steroids, and chest tube. Morphine and Ativan as needed for palliation ordered If patient clinically declines and is with secretions may use glycopyrrolate as needed for secretions Palliative consult placed on SPARMAKER transition Discussed with third-floor staff, attempting to arrange private room for family visitation AHRF w/ Pneumothorax 02/23 move to comfort measures as above CXR 02/22: Restive subcu emphysema, pneumomediastinum and apical pneumothoraces redemonstrated. Interval increase in size slightly decreased following chest t ube placement Unclear cause, bronchoscopy limited by risks with respiratory status Thoracostomy tube placed 02/22 slight improvement, patient overall feels similar Solu-Medrol 125 mg IV every 6 hours per ICU/pulm. Nintedanib held. To need with SPARMAKER as noted Avoid PPV. Case has been reviewed with [facility] pulmonology. Patient not excepted for transfer as plan of care would be the same, and patient is at significant risk of decompensation in route to oxygen requirements. PJP coverage with Bactrim (started 02/19), atypical coverage with azithromycin. At risk given hx steroid treatment/immunosuppressive's with IPF Leukocytosis continued in the setting of steroid use. NLR 28 - high flow nasal canulae, 100% 50L Fungitell pending Bio fire negative (2) IPF (idiopathic pulmonary fibrosis): Plan: -Acute on chronic respiratory failure with hypoxemia -advanced. Follows with Dr. Gege Currie at [place] and Dr. Barr at [place]. -Abx as noted -Negative procalcitonin SPARMAKER as noted (3) Hypertension: Plan: 160/70 on admission Metoprolol continued, (4) DVT prophylaxis: Plan: SCDs & heparin. (5) DARRELL (acute kidney injury): Plan: - Creatinine elevation from baseline 0.6-1-1.1. Creatinine 1.07/7 but with hyperkalemia to 5.8, dose of Lasix being given. ?Bactrim Defer additional monitoring with moved to SPARMAKER (6) Comfort measures only status: Plan: DNR/DNI, SPARMAKER Admission and Anticipated Discharge Date Admission Date: February 18, 2022 Subjective Seen at bedside, appears ill and fatigued. When asked how she feels patient shakes her head to indicate not well. Does endorse that her breathing feels a little bit better after tube placement, but not much. Denies pain. Does not feel she is improved overall, and reports she feels tired. Following visit patient expressed to ICU providers that she wants her course to be over, and would like to pursue a palliative approach understanding without treatment she will likely pass. Family is to visit today, patient does express a desire for comfort oriented goals of care at this time. Revisited again in afternoon with family. Patient has confirmed that she would like to move to comfort measures only, but would like to continue antibiotics, chest tube for comfort, and oxygen for comfort while family is coming to visit over the next 24 hours. Okay with discontinuing other labs and monitoring. If is able to be weaned off high flow would consider home hospice, but knows her prognosis is extremely guarded and may pass before this. Review of Systems Review of Systems: All systems reviewed & are unremarkable except as noted in Subjective Physical Exam Physical Exam: General: A&Ox3. Appears fatigued, appears ill. Pale HEENT: Atraumatic, normocephalic. Vision and hearing grossly intact. Pulm: Diminished, tachypneic. Patient appears fatigued, continues with accessory muscle use. Bibasilar crackles are present.right upper chest with overlying subcutaneous emphysema. Chest tube in place, dressed. Cardiac: RRR, -mrg. Radial pulses intact and symmetrical. Abdominal: Nontender, nondistended, soft. BS present. Results & Data Results & Data ([facility]) Vital Signs (Past 12 Hours) Vital Signs Pulse Pulse Resp BP Pulse Ox 02/23/22 13:01 68 28 H 109/75 92 02/23/22 13:00 67 36 H 92 02/23/22 12:01 88 34 H 144/72 H 89 L 02/23/22 12:00 85 31 H 90 02/23/22 11:35 67 20 92 02/23/22 11:01 84 23 151/78 H 84 L 02/23/22 11:00 83 26 H 85 L 02/23/22 10:01 80 25 H 114/87 90 02/23/22 10:00 77 26 H 89 L 02/23/22 09:01 83 27 H 159/114 H 84 L 02/23/22 09:00 82 27 H 85 L 02/23/22 08:01 75 32 H 134/96 87 L 02/23/22 08:00 76 26 H 87 L 02/23/22 07:31 76 26 H 172/90 H 84 L 02/23/22 07:10 74 22 89 L 02/23/22 07:01 76 22 169/102 H 88 L 02/23/22 07:00 75 25 H 86 L 02/23/22 06:31 72 22 151/80 H 87 L 02/23/22 06:00 80 21 178/100 H 85 L 02/23/22 05:30 75 27 H 153/93 H 88 L 02/23/22 05:01 62 27 H 155/108 H 90 02/23/22 05:00 63 19 92 02/23/22 04:56 65 20 166/114 H 91 02/23/22 04:31 64 23 145/117 H 90 02/23/22 04:16 64 18 166/99 H 91 02/23/22 04:15 63 24 89 L 02/23/22 04:14 64 23 91 02/23/22 04:13 65 22 91 02/23/22 04:12 66 22 90 02/23/22 04:11 67 23 90 02/23/22 04:10 75 25 H 89 L 02/23/22 04:09 78 24 86 L 02/23/22 04:08 83 28 H 86 L 02/23/22 04:07 71 25 H 91 02/23/22 04:06 65 36 H 89 L 02/23/22 04:05 67 32 H 89 L 02/23/22 04:04 67 32 H 87 L 02/23/22 04:03 67 23 86 L 02/23/22 04:02 77 30 H 172/100 H 84 L 02/23/22 04:00 71 26 H 88 L 02/23/22 03:46 66 16 90 02/23/22 03:31 66 22 167/85 H 90 02/23/22 03:01 66 26 H 168/91 H 90 02/23/22 03:00 65 31 H 90 02/23/22 02:31 61 18 140/76 90 PG Care Time/CCT Total # of Minutes Spent Total Time Spent with Patient: Total time spent is greater than 50% in coordination of care (as documented) at patient's floor/unit and/or counseling patient: Coding Level of Care Code 15944 Subseq Hosp Care Lvl 3 Diagnoses Pneumothorax J93.9 IPF (idiopathic pulmonary fibrosis) J84.112 Hypertension I10 DVT prophylaxis Z29.9 DARRELL (acute kidney injury) N17.9 Comfort measures only status Z51.5
[2022-02-23] MEDS: HEPARIN SOD 5,000 UNIT/0.5 ML VIAL SQ SCH (14:26)
[2022-02-23 15:25] LABS: BUN Creatinine Ratio 45.2 (10-20); Calcium 8.8 mg/dl (8.5-10.1); Creatinine Clr Calc Pharmacy 33.8 ml/min; Est GFR (African American) 37.3 ml/min; Est GFR (Non-African American) 32.1 ml/min; Potassium 5.4 mmol/L (3.5-5.1)
[2022-02-23] MEDS ORDERED: LORazepam 0.5 MG in SYRINGE 0.25 ML IV PRN (15:47)
[2022-02-23] MEDS ORDERED: MoRPHine SULFATE 5 MG/0.25 ML UDP PO PRN (15:47)
--- NOTE | 2022-02-23 15:48 | Communication Note ---
Date of Service: February 23, 2022 Met with patient and family at bedside on 2 separate occasions. We had open and william conversations and questions were answered and family was medically upd ated. Patient states that she wants to transition to palliative care. After discussion with family, they are comfortable continuing this. We discussed the role of additional antibiotics and steroids. She wants to continue these for the next 24 hours pending arrival of family members. She also thinks the chest tube is making her breathing easier so she wishes that to leave in place. Will put in Ativan and morphine as needed for management of dyspnea. Discussed with hospitalist and will attempt to transfer her to a private room upstairs out of the ICU to facilitate family. Palliative care consultation as well. We will continue to follow from pulmonary standpoint for chest tube management and pulmonary issues. Feel free to contact us with questions or concerns Coding Level of Care Code Critical Care yariel [email or web address]'l 30 min
[2022-02-23] MEDS ORDERED: GLYCOPYRROLATE 0.2 MG/ML VIAL IV PRN (18:11)
[2022-02-23] MEDS ORDERED: ONDANSETRON 4 MG OD TAB SL PRN (18:11)
[2022-02-23] MEDS ORDERED: LORazepam 0.5 MG TAB PO PRN (18:11)
[2022-02-23] MEDS: LORazepam 0.5 MG in SYRINGE 0.25 ML IV PRN (19:07)
[2022-02-23] MEDS ORDERED: MoRPHine SULFATE 2 MG/ML CARP IV PRN (22:12)
--- NOTE | 2022-02-23 22:18 | Communication Note ---
Date of Service: February 23, 2022 Per nurse, not tolerating PO. Discontinuing IV fentanyl order as can't be given on floor. Holding Roxanol PO. Adding IV morphine 2mg q4h PRN for pain or severe dyspnea. Reviewed renal function, CrCl 33. Not tolerating PO, so Bactrim is unable to be given.
[2022-02-23] MEDS ORDERED: MoRPHine SULFATE 2 MG/ML CARP ONE (22:21)
[2022-02-24] MEDS: methylPREDNISolone 125 MG in SYRINGE 0 ML IV SCH ×3 (00:06→13:03)
[2022-02-24] MEDS: SULFAMETHOXAZOLE/TRIMETHOPRIM DS 800/160MG TAB PO SCH ×2 (00:09→05:16)
[2022-02-24] MEDS: LORazepam 0.5 MG in SYRINGE 0.25 ML IV PRN (00:34)
[2022-02-24] MEDS: MoRPHine SULFATE 2 MG/ML CARP IV PRN ×2 (04:03→09:59)
--- NOTE | 2022-02-24 07:53 | Pulmonology Progress Note ---
Date of Service February 24, 2022 Assessment & Plan (1) Pneumothorax: Plan: Impression: 76-year-old female with biopsy-proven UIP followed at [facility] [address] maintained on nintedanib and prednisone with kandice several week course requiring hospitalization and escalation of steroids presenting now with secondary pneumothorax with extensive subcutaneous emphysema and hypoxemic respiratory failure. 24-hour events:Patient had extensive discussion with medical team and with family and elected to pursue palliative comfort measures. She was transferred to the floor. Palliative care consult has been entered. She was initiated on Roxanol and Ativan for management of dyspnea. Recommendations: 1. Continue comfort care measures with Ativan and morphine as needed for management of dyspnea and air hunger. The patient appears comfortable currently. 2. Discussed with family that her high-level supplemental oxygen may be artificially prolonging her . May be an appropriate consideration to decr ease oxygen or discontinue oxygen but will defer to primary service, family, and palliative care team. 3. Continue chest tube for now as a palliative measure. 4. Please contact us if we can be of additional assistance. If there are issues with a chest tube, please contact us or if the tube needs to be removed. The patient appears expectant Pneumothorax type: spontaneous, secondary Qualified Code(s): J93.12 - Secondary spontaneous pneumothorax (2) Hypoxia: (3) IPF (idiopathic pulmonary fibrosis): (4) Subcutaneous emphysema: Admission and Anticipated Discharge Date Admission Date: February 18, 2022 Subjective Patient seen and examined. Discussed with family members at bedside. The patient is obtunded. She has shallow intermittent respirations. She remains on high flow oxygen Review of Systems Review of Systems: Unobtainable due to reduced consciousness Physical Exam Constitutional: Obtunded. Remaining exam deferred Results & Data Results & Data ([facility]) Vital Signs (Past 12 Hours) Vital Signs Resp 02/23/22 23:00 28 H Laboratory Results 02/23/22 05:34 02/23/22 14:18 PG Care Time/CCT Total # of Minutes Spent Total Time Spent with Patient: Total time spent is greater than 50% in coordination of care (as documented) at patient's floor/unit and/or counseling patient: Coding Level of Care Code 98195 Subseq Hosp Care Lvl 2 Diagnoses Pneumothorax J93.12 Pneumothorax type: spontaneous, secondary Hypoxia R09.02 IPF (idiopathic pulmonary fibrosis) J84.112 Subcutaneous emphysema T79.7XXA
[2022-02-24] MEDS: GABAPENTIN 300 MG CAP PO SCH (09:09)
[2022-02-24] MEDS: FLUoxetine HCL 20 MG CAP PO SCH (09:09)
[2022-02-24] MEDS: METOPROLOL SUCC 50MG EXT REL TAB PO SCH (09:10)
[2022-02-24] MEDS: PANTOprazole 40 MG TAB PO SCH (09:10)
[2022-02-24] MEDS: LIDOCAINE 5% 1 PATCH TD SCH (10:00)
[2022-02-24] MEDS ORDERED: GLYCOPYRROLATE 0.2 MG/ML VIAL IV PRN (10:59)
[2022-02-24] MEDS ORDERED: HYDROmorphone INJ 0.5 MG/0.5 ML SYR IV PRN (10:59)
--- NOTE | 2022-02-24 11:59 | Palliative Care Consultation ---
Date of Consultation February 24, 2022 Assessment & Plan (1) Dyspnea: Talked with family about what to expect. We anticipate variable breathing patterns which are not necessarily consistent with air hunger or discomfort. We also discussed that O2 sat does not correlate with air hunger. Current agonal breathing pattern is expected and she is relaxed with no muscle tension, restlessness or facial grimace. Would continue prn opioids for now. Monitor with weaning of O2. Family understands that we can address her symptoms with decreased oxygen flow for comfort. Given her worsening renal function, would rotate opioid to hydromorphone as she is likely to need frequent dosing, possibly opioid infusion, for symptom relief. Discussed with RN, Respiratory Therapy and Dr. Gibson. (2) Palliative care encounter: Plan to monitor with O2 wean and consider home with hospice if she is stable with lower oxygen flow. I am concerned that she will likely here in the hospital. (3) Acute on chronic respiratory failure with hypoxemia: (4) IPF (idiopathic pulmonary fibrosis): (5) DARRELL (acute kidney injury): History of Present Illness Reason for Consultation: comfort care Requesting Physician: Dr. Gibson Attending Physician: Tyshawn Gibson MD History of Present Illness 76 yo lady with ILD who also has apical PTXs, pneumoperitoneum and cutaneous emphysema. She has been hospitalized since 02/18 with hypoxic respiratory failure and has had complicated course with chest tube placement, high dose steroids and DARRELL. Dr. Barr had a discussion with Mrs. Mcnamara and her family yesterday and the decision was made to shift focus of care to symptom palliation. She is currently obtunded and not able to participate in discussion. Her and other family members are at bedside. She has received lorazepam and morphine in the last few hours for relief of dyspnea. She does have agonal respirations but appears comfortable at the time of my visit. Family had requested gradual withdrawl of care while other family members arrive from out of town but now are on board with comfort measures only. They understand that her prognosis is poor and are all in agreement that keeping her comfortable is the best thing we can d o for her at this time. Allergies Allergy/AdvReac Type Severity Reaction Status Date / Time amoxicillin Allergy Intermediate sneeze/coug Verified 02/18/22 16:09 h LISA Inhibitors AdvReac Intermediate sneeze and Verified 02/18/22 16:09 cough Home Medications Medication Instructions Recorded Confirmed Type multivitamin (Daily Multi-Vitamin) 1 tab PO QAM 03/26/19 02/18/22 History montelukast 10 mg tablet 10 mg PO QPM 02/04/20 02/18/22 History ferrous sulfate 325 mg (65 mg 325 mg PO QAM #60 tab 06/29/20 02/18/22 History iron) tablet cyanocobalamin (vitamin B-12) 2,500 mcg PO WK 07/01/20 02/18/22 History 2,500 mcg tablet metoprolol succinate 50 mg 50 mg PO BID 07/01/20 02/18/22 History tablet,extended release 24 hr celecoxib 100 mg capsule (Celebrex) 100 mg PO BID 10/14/21 02/18/22 History benzonatate 100 mg capsule 100 mg PO BID PRN 02/02/22 02/18/22 History calcium carbonate 500 mg calcium 500 mg PO DAILY 02/02/22 02/18/22 History (1,250 mg) tablet cholecalciferol (vitamin D3) 50 50 mcg PO DAILY 02/02/22 02/18/22 History mcg (2,000 unit) capsule (Vitamin D3) fluoxetine 20 mg capsule 20 mg PO DAILY 02/02/22 02/18/22 History gabapentin 300 mg capsule 300 mg PO DAILY 02/02/22 02/18/22 History nintedanib 150 mg capsule (Ofev) 150 mg PO BID 02/02/22 02/18/22 History pantoprazole 40 mg tablet,delayed 40 mg PO BID 02/02/22 02/18/22 History release Oxygen Home #7 l 02/15/22 02/18/22 Rx prednisone 5 mg tablet 5 mg PO UD #90 tab 02/15/22 02/18/22 Rx Patient History Medical History Abnormal chest x-ray Chronic cough Chronic sinusitis DJD (degenerative joint disease) Globus sensation reason for scheduled EGD Hypertension Interstitial lung disease Nasal polyps On home oxygen therapy 2L N/C prn Sacroiliitis, not elsewhere classified Vitamin D deficiency, unspecified Surgical History H/O gastric bypass 2008 H/O sinus surgery Dr. Hamm, left frontal sinusotomy, right and left total ethmoidectomy, right and left sphenoidotomy, right and left maxillary sinus antrostomies. 09/2013 History of appendectomy History of bladder suspension procedure History of colonoscopy History of esophagogastroduodenoscopy (EGD) History of hysterectomy History of lung biopsy 01/2018 History of nasal polypectomy per pt x50 procedures History of tonsillectomy and adenoidectomy History of tooth extraction upper and lower partial History of wisdom tooth extraction Family History Other Heart disease No family history of adverse response to anesthesia Social History Smoking Status: Never smoker Second Hand Exposure: No; Hx Alcohol Use: Yes Alcohol type: beer, wine and hard liquor Hx Substance Use: No Preferred Language: Romansh Communication Ability: Effective 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 Required: No Beliefs That Will Affect Care: None marital status: Current Living Situation: Spouse Feels Safe at Home: Yes Assistive Devices: Walker Review of Systems Review of Systems: Unobtainable due to reduced consciousness ESAS Pain by observation 0/3 Dyspnea by observation 0/3 Drowsiness 3/3 PPS 10% Physical Exam Constitutional: no acute distress ENMT: Mouth: + dry oral mucous membranes Respiratory: agonal respirations, apnea Cardiovascular: Rate/Rhythm: regular rate and regular rhythm no mottling Musculoskeletal: no rigidity Skin: warm and dry Genitourinary: uop 50cc overnight Results & Data ([facility]) Vital Signs (Past 12 Hours) Vital Signs Resp Pulse Ox 02/24/22 10:57 100 02/24/22 10:11 24 PG Care Time/CCT Total # of Minutes Spent Total Time Spent: 62 Total Time Spent with Patient: Total time spent is greater than 50% in coordination of care (as documented) at patient's floor/unit and/or counseling patient: symptom management, family education and support, coordination of care Coding Level of Care Code 07124 Initial Inpt Care Lvl 2 Diagnoses Dyspnea R06.00 Palliative care encounter Z51.5 Acute on chronic respiratory failure with hypoxemia J96.21 IPF (idiopathic pulmonary fibrosis) J84.112 DARRELL (acute kidney injury) N17.9
--- NOTE | 2022-02-24 12:45 | Hospitalist Progress Note ---
Date of Service February 24, 2022 Assessment & Plan (1) Pneumothorax: Plan: Cindy is a 76-year-old female with a history of idiopathic pulmonary fibrosis who presented with hypoxemic respiratory failure and is found to have pneumothorax with subcu emphysema. Comfort measures only 02/23 patient expressed a desire to move to palliative approach and focus on comfort measures only. Would like to continue chest tube for comfort as thinks this is helping a little, antibiotics, and oxygen for comfort over the next 24 hours while family is visiting. Otherwise okay with discontinuing lab draws and other monitoring. Would consider transition to home hospice if she were to be able to be weaned off of high flow, however she recognizes her prognosis is guarding and may pass in the hospital. Family seen and counseling provided at bedside, are in agreement with Cindy's decision. SOLE FILLER orders entered If patient clinically declines and is with secretions may use glycopyrrolate as needed for secretions Palliative consult placed on SOLE FILLER transition Transferred to third floor Last family coming over the next hour AM of 02/24, after which they are okay with decreasing high flow nasal cannula to mask/increasing morphine for patient comfort as needed. Okay with discontinuing antibiotics and steroids Seen by palliative care. Recommend rotating opioid to hydromorphone for frequent dosing, may consider gtt. if required. Appreciate recommendations. AHRF w/ Pneumothorax 02/23 move to comfort measures as above CXR 02/22: Restive subcu emphysema, pneumomediastinum and apical pneumothoraces redemonstrated. Interval increase in size slightly decreased following chest tube placement Unclear cause, bronchoscopy limited by risks with respiratory status Thoracostomy tube placed 02/22 slight improvement, patient overall feels similar Solu-Medrol 125 mg IV every 6 hours per ICU/pulm. Nintedanib held. To need with SOLE FILLER as noted Avoid PPV. Case [place] been [place] [facility] [place]. Patient not excepted for transfer as plan of care would be the same, and patient is at significant risk of decompensation in route to oxygen requirements. PJP coverage with Bactrim (started 02/19), atypical coverage with azithromycin. At risk given hx steroid treatment/immunosuppressive's with IPF Leukocytosis continued in the setting of steroid use. NLR 28 -Required high flow nasal canulae, 100% 50L shifted to comfort oriented oxygen supplementation as noted Fungitell pending Bio fire negative (2) IPF (idiopathic pulmonary fibrosis): Plan: -Acute on chronic respiratory failure with hypoxemia -advanced. Follows with Dr. Gege Currie at [place] and Dr. Barr at [facility]. -Abx as noted -Negative procalcitonin SOLE FILLER as noted (3) Hypertension: Plan: 160/70 on admission Metoprolol continued, (4) DVT prophylaxis: Plan: SCDs & heparin. (5) DARRELL (acute kidney injury): Plan: - Creatinine elevation from baseline 0.6-1-1.1. Creatinine 1.07/7 but with hyperkalemia to 5.8, dose of Lasix being given. ?Bactrim Defer additional monitoring with moved to SOLE FILLER (6) Comfort measures only status: Plan: DNR/DNI, SOLE FILLER Admission and Anticipated Discharge Date Admission Date: February 18, 2022 Subjective Patient is somnolent, minimally arousable. Subjective limited by cognitive status. Family is present at bedside, confirmed Cindy's desire for palliative and comfort measures. Note that they have last few family members coming over the next hour, then would like a wean of oxygen from high flow to mask for comfort. They are okay with stopping antibiotics and steroids. Review of Systems Review of Systems: Unobtainable due to reduced consciousness Physical Exam Physical Exam: General: Obtunded appears ill, pale HEENT: Atraumatic, normocephalic. Mucous membranes dry. Pulm: Diminished, regular rate. Chest tube in place to gravity Cardiac: RRR, -mrg. Abdominal: Nontender, nondistended Results & Data Results & Data ([facility]) Vital Signs (Past 12 Hours) Vital Signs Resp Pulse Ox 02/24/22 10:57 100 02/24/22 10:11 24 PG Care Time/CCT Total # of Minutes Spent Total Time Spent with Patient: Total time spent is greater than 50% in coordination of care (as documented) at patient's floor/unit and/or counseling patient: Coding Level of Care Code 11570 Subseq Hosp Care Lvl 2 Diagnoses Pneumothorax J93.9 IPF (idiopathic pulmonary fibrosis) J84.112 Hypertension I10 DVT prophylaxis Z29.9 DARRELL (acute kidney injury) N17.9 Comfort measures only status Z51.5
--- NOTE | 2022-02-24 17:46 | Death Pronouncement Note ---
Date of Service February 24, 2022 Pronouncement Note Admission Date February 18, 2022 Date and Time of Date of : 02/24/22 Time of : 17:30 Preliminary Cause of (1) Acute on chronic respiratory failure with hypoxemia: Additional Comments: Acute hypoxic respiratory failure 2/2 idiopathic pulmonary fibrosis with suspected superimposed pneumonia and pneumothorax (2) IPF (idiopathic pulmonary fibrosis): (3) Pneumothorax: Summary Notified by nursing that patient had likely passed at approximately 1720. Patient seen at the room, on exam no auscultated cardiac activity, no spontaneous respiration, pupils were fixed and dilated without response to light, and corneal reflex was absent. Time of 1730, family notified and at bedside during exam. Offered that exam could be performed and there presents for closure, or privately if they preferred. Family preferred to remain for pronouncement exam. See discharge summary for further details Additional Data Attending physician: Tyshawn Gibson MD Coding Level of Care Code D/C DAY MANAGEMENT >30 MINS Diagnoses Acute on chronic respiratory failure with hypoxemia J96.21 IPF (idiopathic pulmonary fibrosis) J84.112 Pneumothorax J93.9
--- NOTE | 2022-02-24 17:51 | Discharge Summary ---
Date of Service February 24, 2022 Admission HPI Per Admitting Provider 76yo F w/ hx of ILD who presents with right-sided PTX. She was recently discharged home from the hospital after having an extended stay due to ILD flare and was discharged home on an extended steroid taper. She reports she was doing well overall and reports that her shortness of breath was gradually increasing. However, this morning, she had a prolonged coughing fit and had a desaturation event. The home health aide that was there was concerned enough that she called 911 and was brought to the ER. The reports that her SpO2 was in the 60s. Her baseline home 2L was increased to 4L which brought her up to the 80% range, but then it would dip back down into the 70% range. The patient notes she felt tired and weak while this was happening, but otherwise does not report any particular symptoms. Otherwise, she is in her usual state of health and denies BUITRAGO, vision changes, chest pain, abdominal pain, n/v. Principal Diagnosis Acute hypoxic respiratory failure 2/2 suspected superimposed pneumonia idiopathic pulmonary fibrosis with bilateral pneumothorax Discharge Exam At pronouncement 1730: Pupils fixed and dilated, corneal reflex absent, no spontaneous respiration to auscultation, no cardiac activity appreciable on auscultation Discharge Data Allergies Allergy/AdvReac Type Severity Reaction Status Date / Time amoxicillin Allergy Intermediate sneeze/coug Verified 02/18/22 16:09 h LISA Inhibitors AdvReac Intermediate sneeze and Verified 02/18/22 16:09 cough Consultations 02/18/22 15:59 ED Decision to Admit Stat 02/18/22 17:39 Consult Cloth Cutter Routine 02/23/22 18:11 Consult Palliative Care Routine Ordered Studies 02/18/22 13:17 CT chest diagnostic wo con Stat Hospital Course (1) Acute on chronic respiratory failure with hypoxemia: (2) IPF (idiopathic pulmonary fibrosis): -Acute on chronic respiratory failure with hypoxemia -advanced. Follows with Dr. Gege Currie at [place] and Dr. Barr at [facility]. -Abx as noted -Negative procalcitonin CASHIER SUPERVISOR as noted (3) Pneumothorax: Cindy is a 76-year-old female with a history of idiopathic pulmonary fibrosis who presented with hypoxemic respiratory failure and is found to have pneumothorax with subcu emphysema. She was suspected to have potential superimposed pneumonia with suspicion for PJP, send out confirmation/Fungitell was pending during admission and at time of pronouncement Comfort measures only 02/23 patient expressed a desire to move to palliative approach and focus on comfort measures only. Would like to continue chest tube for comfort as thinks this is helping a little, antibiotics, and oxygen for comfort over the next 24 hours while family is visiting. Otherwise okay with discontinuing lab draws and other monitoring. Would consider transition to home hospice if she were to be able to be weaned off of high flow, however she recognizes her prognosis is guarding and may pass in the hospital. Family seen and counseling provided at bedside, are in agreement with Cindy's decision. CASHIER SUPERVISOR orders entered If patient clinically declines and is with secretions may use glycopyrrolate as needed for secretions Palliative consult placed on CASHIER SUPERVISOR transition Transferred to third floor Last family coming over the next hour AM of 02/24, after which they are okay with decreasing high flow nasal cannula to mask/increasing morphine for patient comfort as needed. Okay with discontinuing antibiotics and steroids. Following this patient was weaned to Christine mask for comfort. Seen by palliative care. Recommend rotating opioid to hydromorphone for frequent dosing Patient progressively declined over 02/24, and passed at 1730 BANNERF w/ Pneumothorax 02/23 move to comfort measures as above CXR 02/22: Restive subcu emphysema, pneumomediastinum and apical pneumothoraces redemonstrated. Interval increase in size slightly decreased following chest tube placement Unclear cause, bronchoscopy limited by risks with respiratory status Thoracostomy tube placed 02/22 slight improvement, patient overall feels similar Solu-Medrol 125 mg IV every 6 hours per ICU/pulm. Nintedanib held. To need with CASHIER SUPERVISOR as noted Avoid PPV. Case has been reviewed with [facility] pulmonology. Patient not excepted for transfer as plan of care would be the same, and patient is at significant risk of decompensation in route to oxygen requirements. PJP coverage with Bactrim (started 02/19), atypical coverage with azithromycin. At risk given hx steroid treatment/immunosuppressive's with IPF Leukocytosis continued in the setting of steroid use. NLR 28 -Required high flow nasal canulae, 100% 50L shifted to comfort oriented oxygen supplementation as noted Fungitell pending Bio fire negative IPF (idiopathic pulmonary fibrosis): - w. Acute on chronic respiratory failure with hypoxemia -advanced. Follows with Dr. Gege Currie at [place] and Dr. Barr at [facility]. -Abx as noted -Negative procalcitonin CASHIER SUPERVISOR as noted Hypertension: Plan: 160/70 on admission Metoprolol continued, DVT prophylaxis: Plan: SCDs & heparin. DARRELL (acute kidney injury): - Creatinine elevation from baseline 0.6-1-1.1. Creatinine 1.07/7 but with hyperkalemia to 5.8, dose of Lasix being given. ?Bactrim Defer additional monitoring with moved to CASHIER SUPERVISOR DNR/DNI, CASHIER SUPERVISOR Total Time Total Time Spent Total Time Spent (In Minutes): Time spend day of discharge 65 minutes including direct patient care, documentation, review of labs and images, and coordination of care. Discharge Plan Discharge Items Reason For Visit: PTX WITH ILD Follow-up/Referrals: Kasia King DO [Primary Care Provider] - Medications and DC Order Prescriptions: No Action montelukast 10 mg tablet 10 mg PO QPM RF: 0 celecoxib [Celebrex] 100 mg capsule 100 mg PO BID RF: 0 multivitamin [Daily Multi-Vitamin] tablet 1 tab PO QAM RF: 0 ferrous sulfate 325 mg (65 mg iron) tablet 325 mg PO QAM Qty: 60 RF: 0 metoprolol succinate 50 mg Tablet Extended Release 24 Hr 50 mg PO BID RF: 0 cyanocobalamin (vitamin B-12) 2,500 mcg Tablet 2,500 mcg PO WK RF: 0 benzonatate 100 mg Capsule 100 mg PO BID PRN (Reason: Cough) RF: 0 calcium carbonate 500 mg calcium (1,250 mg) Tablet 500 mg PO DAILY RF: 0 pantoprazole 40 mg tablet,delayed release (DR/EC) 40 mg PO BID RF: 0 gabapentin 300 mg capsule 300 mg PO DAILY RF: 0 fluoxetine 20 mg capsule 20 mg PO DAILY RF: 0 cholecalciferol (vitamin D3) [Vitamin D3] 50 mcg (2,000 unit) Capsule 50 mcg PO DAILY RF: 0 Ofev 150 mg capsule 150 mg PO BID RF: 0 prednisone 5 mg tablet 5 mg PO UD Qty: 90 RF: 0 (DME) Oxygen Home Liters Per Minute See Rx Instructions .ROUTE Qty: 7 RF: 0 Krames/Other Patient Handouts: 5 Steps for Eating Healthier, Type 2 Diabetes Admission Data Admit Date/Time: 02/18/22 16:21 Attending Provider: Tyshawn Gibson Admit Provider: Basim Stevens Primary Care Provider: Kasia King Other Providers: [facility] ; Basim Stevens ; Rober Shoemaker ; Mar Alfonso Coding Level of Care Code D/C DAY MANAGEMENT >30 MINS Diagnoses Acute on chronic respiratory failure with hypoxemia J96.21 IPF (idiopathic pulmonary fibrosis) J84.112 Pneumothorax J93.9
[2022-02-24 19:21] LABS: Fungitell (1-3)-B-D-Glucan <31 pg/mL
== END 2022-02-24 18:30 | disposition expired | DRG 199 ==
LOC: ED 11:44 → 1E 16:21 → SUATTDRO 16:21 → 1E 17:21 → 3N 02-23 18:13